=== PATIENT | female | born 1935 | race Caucasian/White ===

== ENCOUNTER → 2016-07-03 | Outpatient (CLI) | payer OTHER ==
[~2016-07-03] MED LIST: AMLO-110 PO; ASCO500T16 PO; ATOR-26 PO; CALC1CHW PO; CALCTAB7 PO; CIPR250T3 PO; CLC100 PO; CLON0.2T PO; CLOP1TAB15 PO; DENO60SO SQ; LISI-725 PO; LPR100 PO; LVNIS60 SQ; METO50TA16 PO; METR0.7527 TD; METR1GEL3 TD; MULT-506 PO; PLV75 PO; VNTHFA/IN INH; WARF5TAB90 PO
--- NOTE | 2016-07-04 08:03 | MAMMOGRAPHY REPORT ---
BILATERAL DIGITAL SCREENING MAMMOGRAM WITH CAD: 07/03/2016 CLINICAL HISTORY: Routine screening examination. TECHNIQUE: Bilateral CC and MLO views were obtained. Current study was also evaluated with a Comput er Aided Detection (CAD) system. COMPARISON: Comparison is made to exams dated: 06/30/2015 mammogram, 05/28/2014 mammogram, 05/27/2013 m ammogram, 05/28/2012 ultrasound, 05/24/2011 mammogram, and 05/17/2010 mammogram - [facility]. BREAST COMPOSITION: There are scattered areas of fibroglandular density in both breasts. FINDINGS: There are moderate vascular calcifications in both breasts. Benign rim calcifications bi laterally. Stable focal asymmetry in the upper outer middle to posterior left breast, and stable 6 mm reniform mass in the upper outer posterior right breast, most likely representing an intramammary lymph node. No new suspicious mass, architectural distortion or cluster of microcalcifications is s een. IMPRESSION: ACR BI-RADS CATEGORY 2: BENIGN There is no mammographic evidence of malignancy. A 1 year screening mammogram is recommended. The p atient will receive written notification of the results. Approximately 10% of breast cancers are not detected with mammography. A negative mammographic repor t should not delay biopsy if a clinically suggestive mass is present. Radha Cantu M.D. ay/:07/03/2016 16:12:36 [employer]: Amna ARIAS)(Josh), [facility] letter sent: Normal 1/2 BI-RADS Code: ACR BI-RADS Category 2: Benign
== END | disposition home or self-care (01) ==
LOC: C.MAMM 07:23
PROVIDERS: ATTEND Internal Medicine
DX: Z12.31 Encounter for screening mammogram for malignant neoplasm of breast (principal)

== ENCOUNTER 2016-10-09 19:38 | Inpatient (IN) | payer OTHER ==
[~2016-10-09] VITALS: Ht 157.5 cm; Wt 57.8 kg
[~2016-10-09 19:38] MED LIST changes: -AMLO-110 PO; -ASCO500T16 PO; -ATOR-26 PO; -CALC1CHW PO; -CALCTAB7 PO; -CIPR250T3 PO; -CLC100 PO; -CLOP1TAB15 PO; -DENO60SO SQ; -LPR100 PO; -LVNIS60 SQ; -METR0.7527 TD; -MULT-506 PO; -PLV75 PO; -VNTHFA/IN INH; -WARF5TAB90 PO
[2016-10-09] MEDS ORDERED: SODIUM CHLORIDE 0.9% 1000ML 1,000 ML IV SCH (19:49)
[2016-10-09 19:59] LABS: HEMATOCRIT 39.8 % (37-47); MEAN CELL VOLUME 98.8 fL (80-100); MEAN CORPUSCULAR HEMOGLOBIN 34.2 pg (25-34); MEAN CORPUSCULAR HGB CONC 34.7 g/dl (32-36); MEAN PLATELET VOLUME 10.6 fL (7.4-10.4); PLATELET COUNT 346 K/uL (130-400); RED BLOOD COUNT 4.03 M/uL (4.2-5.4); WHITE BLOOD COUNT 11.97 K/uL (4.8-10.8)
--- NOTE | 2016-10-09 20:10 | DIAGNOSTIC IMAGING REPORT ---
CHEST ONE VIEW PORTABLE CLINICAL HISTORY: Stroke. Slurred speech. COMPARISON STUDY: Chest radiograph November 18, 2009. FINDINGS: A proximal right humeral internal fixation is incidentally noted. There is no pneumothorax or pleural effusion. Diffuse interstitial thickening has developed since exam of November 18, 2009. There is no consolidation. There is minimal left basilar opacity. Mild cardiomegaly is noted. IMPRESSION: 1. Interval development of diffuse interstitial thickening since exam of November 18, 2009. This favors interstitial lung disease although pulmonary edema could appear similar. 2. Mild cardiomegaly. Electronically signed by: Pedro Butcher M.D. 10/09/2016 8:09 PM Dictated Date/Time: 10/09/2016 8:07 PM
[2016-10-09 20:12] LABS: INR 1.1 (0.9-1.1); PARTIAL THROMBOPLASTIN RATIO 1.1
[2016-10-09 20:15] LABS: ALT/SGPT 25 U/L (12-78); AST/SGOT 23 U/L (15-37); BLOOD UREA NITROGEN 15 mg/dl (7-18); BUN/CREATININE RATIO 15.9 (10-20); CALCIUM 9.4 mg/dl (8.5-10.1); CARBON DIOXIDE 23 mmol/L (21-32); CHLORIDE 104 mmol/L (98-107); CREATININE 0.95 mg/dl (0.60-1.20); GLUCOSE 123 mg/dl (70-99); POTASSIUM 3.6 mmol/L (3.5-5.1); SODIUM 138 mmol/L (136-145)
[2016-10-09 20:20] LABS: ALKALINE PHOSPHATASE 79 U/L (45-117); CKMB/CK RATIO 2.3 (0-3.0)
--- NOTE | 2016-10-09 20:23 | DIAGNOSTIC IMAGING REPORT ---
CT OF THE HEAD WITHOUT CONTRAST CLINICAL HISTORY: Stroke. Slurred speech. COMPARISON STUDY: No previous studies for comparison. CT DOSE: 537.48 mGy.cm TECHNIQUE: Helical axial images of the head were obtained without IV contrast. Automated exposure control was utilized for the study. FINDINGS: No acute intracranial hemorrhage, midline shift or mass effect is present. Mild ventricular dilatation is likely due to atrophy as this is proportional to sulcal enlargement. Moderate white matter hypodensities suggest small vessel disease. There are no findings to suggest acute dural sinus thrombosis or acute territorial infarct. There is no calvarial fracture. There are postsurgical findings within visualized portions of the sinuses. IMPRESSION: No acute intracranial findings. Electronically signed by: Pedro Butcher M.D. 10/09/2016 8:21 PM Dictated Date/Time: 10/09/2016 8:19 PM
--- NOTE | 2016-10-09 20:31 | EMERGENCY ROOM VISIT NOTE ---
History Report prepared by [employer]: Todd Rivas Under the Supervision of: Dr. Salvador Zarate D.O. First contact with patient: 19:43 Stated Complaint: TIRED, SLURRED SPEACH History of Present Illness The patient is a 81 year old female who presents to the Emergency Room by EMS with complaints of persistent neurologic symptoms beginning yesterday. 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 They state that the patient said that she felt "like she was in slow motion" initially. They state that the patient developed difficulty speaking and fatigue today. Nursing staff states that the patient may have some facial droop. The patient denies any rashes, and states that she has not been outside much recently. She has no history of cancer. She denies any problems with taste. Source of History: patient, EMS, nursing staff Onset: Yesterday Quality: other (neurologic symptoms) Timing: other (persistent) Associated Symptoms: + fatigue, No rash Note: The patient's symptoms include difficulty speaking. Review of Systems See HPI for pertinent positives & negatives. A total of 10 systems reviewed and were otherwise negative. 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 Surgical Problems: (1) H/O exploratory laparotomy (2) H/O laminectomy (3) H/O shoulder surgery (4) Hx of cardiac cath (5) Hx of tonsillectomy (6) S/P ELEN-BSO Family History Cancer Diabetes mellitus FH: heart disease Social History Smoking Status: Never Smoker Alcohol Use: occasionally Drug Use: none Marital Status: Housing Status: lives with family Occupation Status: retired Current/Historical Medications Scheduled Amlodipine (Norvasc), 5 MG PO DAILY Ascorbic Acid (Ascorbic Acid), 500 MG PO DAILY Calcium Carbonate-Vitamin D (Caltrate 600+D), 1 TAB PO DAILY Clonidine Hcl (Catapres), 0.2 MG PO BID Denosumab (Prolia), 1 ML SQ [id number] Lisinopril (Zestril), 20 MG PO BID Metoprolol Tartrate (Lopressor) (Lopressor), 75 MG PO BID Metronidazole Hcl (Metrogel), 1 APPLN TD UD Multivitamin (Multivitamin), 1 TAB PO DAILY Scheduled PRN Albuterol Hfa (Ventolin Hfa), 2 PUFFS INH Q6H PRN for SOB/Wheezing Allergies Coded Allergies: Pneumococcal Vaccine (Verified Allergy, Mild, DIZZINESS AND FELT LOUSY, ) Sulfa Antibiotics (Verified Allergy, Unknown, ., 08/26/15) Physical Exam Vital Signs Date Time Temp Pulse Resp B/P (MAP) Pulse Ox O2 Delivery O2 Flow Rate FiO2 10/09/16 20:33 75 10/09/16 20:31 81 17 144/96 95 Room Air 10/09/16 19:40 37.0 91 18 183/119 99 Room Air 10/09/16 19:40 Room Air Physical Exam GENERAL: Patient is awake, alert, and in no acute distress. Patient is resting comfortably and showing no signs of anxiety EYES: The conjunctivae are clear. The pupils are round and reactive. EARS, NOSE, MOUTH AND THROAT: The nose is without any evidence of any deformity. Mucous membranes are moist tongue is midline NECK: The neck is nontender and supple. RESPIRATORY: Normal respiratory effort is noted there is no evidence of wheezing rhonchi or rales CARDIOVASCULAR: Regular rate and rhythm noted there no murmurs rubs or gallops normal S1 normal S2 GASTROINTESTINAL: The abdomen is soft. Bowel sounds are present in all quadrants. Abdomen is nontender PELVIS: The Pelvis is stable. No tenderness to palpation is noted. BACK: No midline tenderness or or step-off noted range of motion in flexion extension as well as rotation no signs of muscle spasm noted MUSCULOSKELETAL/EXTREMITIES: There is no evidence of gross deformity full range of motion is noted in the hips and shoulders SKIN: There is no obvious evidence of any rash. There are no petechiae, pallor or cyanosis noted. NEUROLOGIC: Awake, alert and oriented x3. Slight facial droop on the right with forehead sparing. Speech was slurred mildly. Strength symmetric. No drift in the upper extremities. Medical Decision & Procedures ER Provider Diagnostic Interpretation: Radiology results as stated below per my review and radiologist interpretation: CT OF THE HEAD WITHOUT CONTRAST FINDINGS: No acute intracranial hemorrhage, midline shift or mass effect is present. Mild ventricular dilatation is likely due to atrophy as this is proportional to sulcal enlargement. Moderate white matter hypodensities suggest small vessel disease. There are no findings to suggest acute dural sinus thrombosis or acute territorial infarct. There is no calvarial fracture. There are postsurgical findings within visualized portions of the sinuses. IMPRESSION: No acute intracranial findings. Electronically signed by: Pedro Butcher M.D. CHEST ONE VIEW PORTABLE FINDINGS: A proximal right humeral internal fixation is incidentally noted. There is no pneumothorax or pleural effusion. Diffuse interstitial thickening has developed since exam of November 18, 2009. There is no consolidation. There is minimal left basilar opacity. Mild cardiomegaly is noted. IMPRESSION: 1. Interval development of diffuse interstitial thickening since exam of November 18, 2009. This favors interstitial lung disease although pulmonary edema could appear similar. 2. Mild cardiomegaly. Electronically signed by: Pedro Butcher M.D. Laboratory Results 10/09/16 19:36 Red Blood Count 4.03, Mean Corpuscular Volume 98.8, Mean Corpuscular Hemoglobin 34.2, Mean Corpuscular Hemoglobin Concent 34.7, Mean Platelet Volume 10.6, Neutrophils (%) (Auto) 43.5, Lymphocytes (%) (Auto) 45.8, Monocytes (%) (Auto) 9.4, Eosinophils (%) (Auto) 0.8, Basophils (%) (Auto) 0.3, Neutrophils # (Auto) 5.21, Lymphocytes # (Auto) 5.48, Monocytes # (Auto) 1.13, Eosinophils # (Auto) 0.09, Basophils # (Auto) 0.04 10/09/16 19:36 Test 10/09/16 19:36 10/09/16 19:49 White Blood Count 11.97 K/uL (4.8-10.8) Red Blood Count 4.03 M/uL (4.2-5.4) Hemoglobin 13.8 g/dL (12.0-16.0) Hematocrit 39.8 % (37-47) Mean Corpuscular Volume 98.8 fL (80-100) Mean Corpuscular Hemoglobin 34.2 pg (25-34) Mean Corpuscular Hemoglobin Concent 34.7 g/dl (32-36) Platelet Count 346 K/uL (130-400) Mean Platelet Volume 10.6 fL (7.4-10.4) Neutrophils (%) (Auto) 43.5 % Lymphocytes (%) (Auto) 45.8 % Monocytes (%) (Auto) 9.4 % Eosinophils (%) (Auto) 0.8 % Basophils (%) (Auto) 0.3 % Neutrophils # (Auto) 5.21 K/uL (1.4-6.5) Lymphocytes # (Auto) 5.48 K/uL (1.2-3.4) Monocytes # (Auto) 1.13 K/uL (0.11-0.59) Eosinophils # (Auto) 0.09 K/uL (0-0.5) Basophils # (Auto) 0.04 K/uL (0-0.2) RDW Standard Deviation 46.4 fL (36.4-46.3) RDW Coefficient of Variation 12.8 % (11.5-14.5) Immature Granulocyte % (Auto) 0.2 % Immature Granulocyte # (Auto) 0.02 K/uL (0.00-0.02) Red Blood Cell Morphology Unremarkable Prothrombin Time 12.0 SECONDS (9.0-12.0) Prothromb Time International Ratio 1.1 (0.9-1.1) Activated Partial Thromboplast Time 28.4 SECONDS (21.0-31.0) Partial Thromboplastin Ratio 1.1 Anion Gap 11.0 mmol/L (3-11) Est Creatinine Clear Calc Drug Dose 36.1 ml/min Estimated GFR () 64.6 Estimated GFR (Non- 55.8 BUN/Creatinine Ratio 15.9 (10-20) Calcium Level 9.4 mg/dl (8.5-10.1) Total Bilirubin 0.5 mg/dl (0.2-1) Direct Bilirubin 0.2 mg/dl (0-0.2) Aspartate Amino Transf (AST/SGOT) 23 U/L (15-37) Alanine Aminotransferase (ALT/SGPT) 25 U/L (12-78) Alkaline Phosphatase 79 U/L (45-117) Total Creatine Kinase 107 U/L (26-192) Creatine Kinase MB 2.5 ng/ml (0.5-3.6) Creatine Kinase MB Ratio 2.3 (0-3.0) Troponin I < 0.015 ng/ml (0-0.045) Total Protein 9.2 gm/dl (6.4-8.2) Albumin 4.1 gm/dl (3.4-5.0) Lyme Disease IgG Antibody NEG (NEG) Lyme Disease IgM Antibody NEG (NEG) Laboratory results per my review. Medications Administered Medications (Trade) Dose Ordered Sig/Princess Route Start Time Stop Time Status Last Admin Dose Admin Sodium Chloride 1,000 ml @ 50 mls/hr Q20H IV 10/09/16 19:49 11/08/16 19:48 10/09/16 20:37 50 MLS/HR ECG Indication: other (neurologic symptoms) Rate (beats per minute): 87 Rhythm: normal sinus Findings: no ectopy, other (LVH. Poor R-wave progression) Comparison ECG Date: August 18, 2015 Change: Changes are new. ED Course 1943: The patient was evaluated in room B4B. A complete history and physical examination were performed. 1948: Ordered NSS 1,000 ml @ 50 mls/hr IV. 2100: Upon reevaluation, the patient is resting comfortably. I discussed results and treatment plan with her. She verbalizes agreement and understanding. I spoke with Dr. Donovan of the [facility]. The patient will be evaluated for further management and care. Medical Decision Differential diagnosis: Etiologies such as metabolic, infection, hypo/hyperglycemia, electrolyte abnormalities, cardiac sources, intracerebral event, toxicologic, neurologic, as well as others were entertained. Blood pressure screening: Patient was found to have an elevated blood pressure. Referral was deferred to the hospitalist service. Medication Reconciliation: I attest that I have personally reviewed the patient' s current medications list. The patient is an 81-year-old female who presented to emergency department for an evaluation of possible stroke. The patient had slurred speech and right facial droop. Her overall condition might be consistent with Ortiz's palsy but she has some forehead sparing and also has difficulty ambulating and is very unsteady with her gait. For this reason I think this could be consistent with a CVA especially given the patient's age and hypertension history. I discussed the patient's laboratory and radiographic studies with her. She was treated with a small amount of IV fluids in the emergency department. On subsequent reevaluation she was unchanged. The patient's symptoms started last evening I do not feel that she would be a candidate for TPA. I discussed her case with the on-call [facility] hospitalist. They've agreed to evaluate the patient in emergency apartment for further management and disposition. Consults Time Called: [phone] Consulting Physician: Dr. Zion Ayoub Returned Call: [phone] I discussed the patient's case with Dr. Donovan. The patient will be evaluated for further management. Impression Primary Impression: Weakness Additional Impressions: Facial droop Hypertension Scribe Attestation The scribe's documentation has been prepared under my direction and personally reviewed by me in its entirety. I confirm that the note above accurately reflects all work, treatment, procedures, and medical decision making performed by me. Departure Information Dispostion Being Evaluated By Hospitalist Referrals José Vergara D.OCorina (PCP) Stroke History Time Last Known Well Yesterday Stroke t-PA Criteria Reviewed Does NOT meet criteria for t-PA Reason t-PA Not Given Treatment not indicated (patient is outside of the window for TPA) Problem Qualifiers Additional Impressions:
[2016-10-09 20:49] LABS: LYME DISEASE AB IGG NEG (NEG); LYME DISEASE AB IGM NEG (NEG)
[2016-10-09 20:53] LABS: BASO % 0.3 %; BASO ABS # 0.04 K/uL (0-0.2); COMPLETE YES; EOS % 0.8 %; IG% 0.2 %; LYMPH % 45.8 %; LYMPH ABS # 5.48 K/uL (1.2-3.4); MONO % 9.4 %; NEUT % 43.5 %
[2016-10-09] MEDS ORDERED: AMLO-110 PO (20:59)
[2016-10-09] MEDS ORDERED: MULT-506 PO (21:00)
[2016-10-09] MEDS ORDERED: ASCO500T16 PO (21:02)
[2016-10-09] MEDS ORDERED: CALC1CHW PO (21:03)
[2016-10-09] MEDS ORDERED: VNTHFA/IN INH (21:05)
[2016-10-09] MEDS ORDERED: DENO60SO SQ (21:07)
[2016-10-09] MEDS ORDERED: ACETAMINOPHEN 325 MG TAB PO PRN (21:45)
[2016-10-09] MEDS ORDERED: PHARMACIST DISCHARGE MED REC CONSULT PRN (21:45)
[2016-10-09] MEDS ORDERED: ONDANSETRON INJ 2 MG/ML 2 ML VIAL IV PRN (21:45)
--- NOTE | 2016-10-09 22:17 | History and Physical ---
History & Physical Date & Time of Service: Oct 09, 2016 at 21:47 Chief Complaint: Tired, Slurred Speach Primary Care Physician: José Vergara D.O. History of Present Illness Source: patient, clinic records This is an 81 y/o female with PMH of hypertension, osteoporosis, and other problems listed below who presents to the ED with speech difficulty. Patient states last night she was stressed while paying bills but felt neurologically at baseline. Went to bed around 10 pm, had fitful night of sleep, then when she awoke around 6:30 am she noticed that she was having difficulty getting words out. Patient lives alone. 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 Patient states speech is now improved but not back to baseline. Patient denies vision change, COHEN, dizziness, swallowing difficulty, focal weakness or numbness , fever, chills, URI symptoms, cough, SOB, chest pain, N/V/D, urinary changes. Pt reports she did not tolerate aspirin in the past due to epistaxis. No recent abnormal bleeding. Denies history of TIA, CVA, atrial fibrillation, HL, DM. In the ER patient's BP was initially 180s/110s, now improved to 130s systolic. Pt states her BP is generally controlled in clinic on her meds. Took AM meds today but not PM doses. Past Medical/Surgical History Medical Problems: (1) Anemia Nos Status: Chronic (2) Anterior epistaxis Status: Resolved (3) Chronic Sinusitis Nos Status: Chronic (4) Diverticulosis Colon (W/O Ment Of Hemorrhage) Status: Chronic (5) History of ischemic bowel disease Status: Chronic (6) Hypertension Nos Status: Chronic (7) Osteoporosis Status: Chronic (8) Rosacea Status: Chronic (9) Volvulus Of Intestine Status: Resolved Surgical Problems: (1) H/O exploratory laparotomy Permanent Comment: H/O Volvulus, adhesions and ischemic bowel/appendix Status: Chronic (2) H/O laminectomy Status: Chronic (3) H/O shoulder surgery Status: Chronic (4) Hx of cardiac cath Status: Chronic (5) Hx of tonsillectomy Status: Chronic (6) S/P ELEN-BSO Status: Chronic Family History Cancer Diabetes mellitus FH: heart disease Stroke BROTHER (in his 70s) Social History Smoking Status: Never Smoker Alcohol Use: 1 glass of wine per day Drug Use: none Housing status: lives alone Immunizations History of Influenza Vaccine: No History of Tetanus Vaccine?: Yes History of Pneumococcal: Yes History of Hepatitis B Vaccine: Unknown Multi-Drug Resistant Organisms History of MDRO: No Allergies Coded Allergies: Pneumococcal Vaccine (Verified Allergy, Mild, DIZZINESS AND FELT LOUSY, ) Sulfa Antibiotics (Verified Allergy, Unknown, ., 08/26/15) Aspirin (Verified Adverse Reaction, Unknown, epistaxis, 10/09/16) Home Medications Scheduled Amlodipine (Norvasc), 5 MG PO DAILY Ascorbic Acid (Ascorbic Acid), 500 MG PO DAILY Calcium Carbonate-Vitamin D (Caltrate 600+D), 1 TAB PO DAILY Clonidine Hcl (Catapres), 0.2 MG PO BID Denosumab (Prolia), 1 ML SQ [id number] Lisinopril (Zestril), 20 MG PO BID Metoprolol Tartrate (Lopressor) (Lopressor), 75 MG PO BID Metronidazole Hcl (Metrogel), 1 APPLN TD BID Multivitamin (Multivitamin), 1 TAB PO DAILY Review of Systems Ten systems reviewed and negative except as noted in HPI. Physical Exam Vital Signs Date Time Temp Pulse Resp B/P (MAP) Pulse Ox O2 Delivery O2 Flow Rate FiO2 10/09/16 20:33 75 10/09/16 20:31 81 17 144/96 95 Room Air 10/09/16 19:40 37.0 91 18 183/119 99 Room Air 10/09/16 19:40 Room Air General Appearance: WD/WN, no apparent distress, + pertinent finding (alert 81 year old female) Head: normocephalic, atraumatic Eyes: normal inspection, PERRL, EOMI, sclerae normal ENT: hearing grossly normal, pharynx normal Neck: supple, no carotid bruits, trachea midline Respiratory/Chest: lungs clear, normal breath sounds, no respiratory distress, no accessory muscle use Cardiovascular: regular rate, rhythm, no murmur Abdomen/GI: normal bowel sounds, non tender, soft Extremities/Musculoskelatal: no calf tenderness, no pedal edema Neurologic/Psych: no motor/sensory deficits, alert, normal mood/affect, oriented x 3, + pertinent finding (mild dysarthria. right facial droop. finger to nose intact. no pronator drift.) Skin: normal color, warm/dry Diagnostics Laboratory Results Results Past 24 Hours Test 10/09/16 19:36 10/09/16 19:49 Range/Units White Blood Count 11.97 4.8-10.8 K/uL Red Blood Count 4.03 4.2-5.4 M/uL Hemoglobin 13.8 12.0-16.0 g/dL Hematocrit 39.8 37-47 % Mean Corpuscular Volume 98.8 80-100 fL Mean Corpuscular Hemoglobin 34.2 25-34 pg Mean Corpuscular Hemoglobin Concent 34.7 32-36 g/dl Platelet Count 346 130-400 K/uL Mean Platelet Volume 10.6 7.4-10.4 fL Neutrophils (%) (Auto) 43.5 % Lymphocytes (%) (Auto) 45.8 % Monocytes (%) (Auto) 9.4 % Eosinophils (%) (Auto) 0.8 % Basophils (%) (Auto) 0.3 % Neutrophils # (Auto) 5.21 1.4-6.5 K/uL Lymphocytes # (Auto) 5.48 1.2-3.4 K/uL Monocytes # (Auto) 1.13 0.11-0.59 K/uL Eosinophils # (Auto) 0.09 0-0.5 K/uL Basophils # (Auto) 0.04 0-0.2 K/uL RDW Standard Deviation 46.4 36.4-46.3 fL RDW Coefficient of Variation 12.8 11.5-14.5 % Immature Granulocyte % (Auto) 0.2 % Immature Granulocyte # (Auto) 0.02 0.00-0.02 K/uL Red Blood Cell Morphology Unremarkable Prothrombin Time 12.0 9.0-12.0 SECONDS Prothromb Time International Ratio 1.1 0.9-1.1 Activated Partial Thromboplast Time 28.4 21.0-31.0 SECONDS Partial Thromboplastin Ratio 1.1 Sodium Level 138 136-145 mmol/L Potassium Level 3.6 3.5-5.1 mmol/L Chloride Level 104 98-107 mmol/L Carbon Dioxide Level 23 21-32 mmol/L Anion Gap 11.0 3-11 mmol/L Blood Urea Nitrogen 15 7-18 mg/dl Creatinine 0.95 0.60-1.20 mg/dl Est Creatinine Clear Calc Drug Dose 36.1 ml/min Estimated GFR () 64.6 Estimated GFR (Non- 55.8 BUN/Creatinine Ratio 15.9 10-20 Random Glucose 123 70-99 mg/dl Calcium Level 9.4 8.5-10.1 mg/dl Total Bilirubin 0.5 0.2-1 mg/dl Direct Bilirubin 0.2 0-0.2 mg/dl Aspartate Amino Transf (AST/SGOT) 23 15-37 U/L Alanine Aminotransferase (ALT/SGPT) 25 12-78 U/L Alkaline Phosphatase 79 45-117 U/L Total Creatine Kinase 107 26-192 U/L Creatine Kinase MB 2.5 0.5-3.6 ng/ml Creatine Kinase MB Ratio 2.3 0-3.0 Troponin I < 0.015 0-0.045 ng/ml Total Protein 9.2 6.4-8.2 gm/dl Albumin 4.1 3.4-5.0 gm/dl Lyme Disease IgG Antibody NEG NEG Lyme Disease IgM Antibody NEG NEG Diagnostic Radiology CT OF THE HEAD WITHOUT CONTRAST CLINICAL HISTORY: Stroke. Slurred speech. COMPARISON STUDY: No previous studies for comparison. CT DOSE: 537.48 mGy.cm TECHNIQUE: Helical axial images of the head were obtained without IV contrast. Automated exposure control was utilized for the study. FINDINGS: No acute intracranial hemorrhage, midline shift or mass effect is present. Mild ventricular dilatation is likely due to atrophy as this is proportional to sulcal enlargement. Moderate white matter hypodensities suggest small vessel disease. There are no findings to suggest acute dural sinus thrombosis or acute territorial infarct. There is no calvarial fracture. There are postsurgical findings within visualized portions of the sinuses. IMPRESSION: No acute intracranial findings. CHEST ONE VIEW PORTABLE CLINICAL HISTORY: Stroke. Slurred speech. COMPARISON STUDY: Chest radiograph November 18, 2009. FINDINGS: A proximal right humeral internal fixation is incidentally noted. There is no pneumothorax or pleural effusion. Diffuse interstitial thickening has developed since exam of November 18, 2009. There is no consolidation. There is minimal left basilar opacity. Mild cardiomegaly is noted. IMPRESSION: 1. Interval development of diffuse interstitial thickening since exam of November 18, 2009. This favors interstitial lung disease although pulmonary edema could appear similar. 2. Mild cardiomegaly. EKG NSR, 87 bpm, nonspecific T wave inversion in III, no ectopy Impression Assessment and Plan POSSIBLE TIA, RULE OUT CVA Presents with dysarthria, right facial droop Risk factors- hypertension, age CT head- small vessel disease, no acute abnormality Check MRI brain, MRA head and neck, echo with bubble study, monitor in telemetry to r/o arrhythmia Aspirin intolerance noted (epistaxis) Add atorvastatin 40 mg HS for now and check lipid panel in am Consult neurology PT, OT, speech evals HYPERTENSION BP initially elevated to 180s/110s in ER- improved to 130s systolic Takes amlodipine 5 mg daily, clonidine 0.2 mg BID, lisinopril 20 mg BID, metoprolol tartrate 75 mg BID Will hold her PM meds tonight to allow permissive HTN then resume meds in am DVT PROPHYLAXIS Lovenox SQ CODE STATUS Full code per my discussion with the patient. Does not want prolonged life support. DISPOSITION Admit to telemetry Follows with Dr. Vergara for primary care Lives alone; nutrition services aide for discharge planning Patient seen in collaboration with Dr. Donovan. Please see his addendum. Pt will be followed by Dr. Smith in am. 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 Head CT negative, but she continued to have R sided facial droop. VITALS: Last Vital Signs Documentation Date Time Temp Pulse Resp B/P (MAP) Pulse Ox O2 Delivery O2 Flow Rate FiO2 10/10/16 01:10 37.2 64 18 131/78 (95) 96 10/10/16 00:15 Room Air GEN: no acute distress HEENT: noted R sided facial droop, mild slurring of speech CVS: +S1, S2, RRR LUNGS: CTA b/l, no wheezing ABD: soft, NT/ND EXT: no edema NEURO: R facial droop - otherwise, no motor or sensory deficits Stroke-Like Symptoms patient presents with R facial droop/slurring speech head CT negative will obtain Brain MRI/MRA of head/neck echo monitor in tele cannot tolerate aspirin consult neurology start Lipitor VTE Prophylaxis VTE Risk Assessment Done? Y/N: Yes Risk Level: Moderate
[2016-10-09 22:26] VITALS: BP 162/101; PULSE 77; TEMP 37; O2SAT 96; Ht 157.5 cm; Wt 57.8 kg
[2016-10-09] MEDS: SODIUM CHLORIDE 0.9% 1000ML 1,000 ML IV SCH (22:31)
[2016-10-09] MEDS: ENOXAPARIN 40 MG/0.4 ML SYR SC SCH (23:38)
[2016-10-10] VITALS (14 sets, daily range): BP systolic 112–184; BP diastolic 59–101; PULSE 57–83; TEMP 36.4–37.5; O2SAT 94–98
[2016-10-10 00:20] LABS: MANUAL MICROSCOPIC REQUIRED? NO; REVIEW REQ? NO; URINE APPEARANCE CLEAR (CLEAR); URINE BILIRUBIN NEG (NEG); URINE COLOR YELLOW; URINE NITRITE POS (NEG); UROBILINOGEN NEG (NEG); ZZUR CULT IF INDIC CLEAN CATCH YES
[2016-10-10] MEDS ORDERED: GADAVIST IV PRN (04:15)
[2016-10-10 06:27] LABS: BASO % 0.2 %; BASO ABS # 0.02 K/uL (0-0.2); COMPLETE YES; EOS % 0.7 %; HEMATOCRIT 35.1 % (37-47); IG% 0.1 %; LYMPH % 26.2 %; LYMPH ABS # 2.25 K/uL (1.2-3.4); MEAN CELL VOLUME 98.9 fL (80-100); MEAN CORPUSCULAR HGB CONC 33.3 g/dl (32-36); MEAN PLATELET VOLUME 10.2 fL (7.4-10.4); MONO % 14.1 %; NEUT % 58.7 %; PLATELET COUNT 283 K/uL (130-400); RED BLOOD COUNT 3.55 M/uL (4.2-5.4)
[2016-10-10 06:51] LABS: ESTIMATED AVERAGE GLUCOSE 108 mg/dl; HA1C FLAG Normal (Normal)
[2016-10-10 07:05] LABS: BUN/CREATININE RATIO 17.1 (10-20); CALCIUM 7.9 mg/dl (8.5-10.1); CREATININE 0.64 mg/dl (0.60-1.20); POTASSIUM 3.2 mmol/L (3.5-5.1)
--- NOTE | 2016-10-10 07:13 | DIAGNOSTIC IMAGING REPORT ---
Brain MRI WITHOUT CONTRAST HISTORY: Mental status change Stroke TECHNIQUE: Multiplanar multisequence MRI of the brain was performed without the use of contrast. COMPARISON STUDY: None. FINDINGS: Multifocal punctate foci of increased signal suggesting an acute ischemic process in the left middle cerebral arterial distribution. These small foci appear to represent a watershed type infarct. There are findings of age-related atrophy. Chronic small vessel changes present. There is mild compensatory prominence of the ventricular system. There is considerable mucosal thickening and/or near complete opacification of the maxillary sinuses. IMPRESSION: 1. 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 2. Atrophy with components of chronic small vessel change of aging. 3. Note is made that these images are submitted to the radiologist in a delayed fashion Electronically signed by: Santi Aguilar M.D. 10/10/2016 7:12 AM Dictated Date/Time: 10/10/2016 7:05 AM
[2016-10-10 07:14] LABS: CHOLESTEROL/HDL RATIO 3.6
--- NOTE | 2016-10-10 07:25 | DIAGNOSTIC IMAGING REPORT ---
Brain MRA HISTORY: Stroke - Attention to [place] TECHNIQUE: 3-D [id number] MRA of the brain was performed without contrast. COMPARISON STUDY: None. FINDINGS: Visualized intracranial internal carotid arteries, distal vertebral arteries, and basilar artery are widely patent. There is no significant stenosis, occlusion, or aneurysm seen within the bilateral ACAs, MCAs, or right [employer]. Mild focal narrowing within the proximal left [employer]. IMPRESSION: Mild focal narrowing within the proximal left [employer]. Otherwise, significant stenosis, occlusion, or aneurysm within the remaining [place]. Electronically signed by: Edgar Barroso M.D. 10/10/2016 7:24 AM Dictated Date/Time: 10/10/2016 7:17 AM
--- NOTE | 2016-10-10 07:25 | DIAGNOSTIC IMAGING REPORT ---
NECK MRA HISTORY: Stroke Stroke TECHNIQUE: [id number] and gadolinium-enhanced MRA of the neck was performed both before and after the intravenous administration of contrast. All measurements were calculated based on NASCET criteria. COMPARISON STUDY: None. FINDINGS: The aortic arch and proximal great vessels are widely patent. There is no significant stenosis, occlusion, or dissection identified within the bilateral common carotid, internal carotid, or vertebral arteries. Mild scattered atelectatic change. IMPRESSION: No significant stenosis, occlusion, or dissection identified within the carotid or vertebral arteries. Mild scattered atherosclerotic change Electronically signed by: Santi Aguilar M.D. 10/10/2016 7:23 AM Dictated Date/Time: 10/10/2016 7:20 AM
--- NOTE | 2016-10-10 09:11 | ECHOCARDIOGRAM REPORT ---
*NOTICE TO RECEIVING [employer] This information is strictly Confidential and protected under [place] law. [place] law prohibits you from making any further disclosure of this information unless further disclosure is expressly permitted by the written consent of the person to whom it pertains or is authorized by law. A general authorization for the release of medical or other information is not sufficient for this purpose. Hospital accepts no responsibility if the information is made available to any other person, INCLUDING THE PATIENT. Interpretation Summary * Name: PIEDAD SALAZAR Study Date: 10/10/2016 06:26 AM BP: 162/95 mmHg * Patient Location: C.2T\S\E221\S\1 HR: 71 * : 1935 (M/d/yyy) Gender: Female Height: 62 in * Age: 81 yrs Ethnicity: CA Weight: 131 lb * Ordering Physician: Lisseth Sanchez * Referring Physician: Self, Referred * Performed By: Shyann Reynoso RCS * * Reason For Study: TIA * BSA: 1.6 m2 * -- Conclusions -- * The left ventricle is normal in size. * There is moderate concentric left ventricular hypertrophy. * The left ventricular wall motion is normal. * Ejection Fraction = 55-60%. * Aortic valve sclerosis moderate, without significant aortic valvular stenosis. * Trace aortic regurgitation. * There is moderate to severe mitral annular calcification. * There is trace mitral regurgitation. * There is trace tricuspid regurgitation. * Right ventricular systolic pressure is elevated at 30-40mmHg. * The interatrial septum is intact with no evidence for an atrial septal defect. * Injection of contrast documented no interatrial shunt. Procedure Details * A complete two-dimensional transthoracic echocardiogram was performed (2D, M-mode, Doppler and color flow Doppler). * A saline contrast injection was performed to assess for cardiac shunting. * The injection was performed through an intravenous line in the left arm. * The attending nurse who injected the saline contrast was CHRISTOPHER DAVALOS, RN. * A total of 10 cc of agitated saline was given. Left Ventricle * The left ventricle is normal in size. * There is moderate concentric left ventricular hypertrophy. * Ejection Fraction = 55-60%. * Left ventricular systolic function is normal. * The left ventricular wall motion is normal. Right Ventricle * The right ventricle is normal in size and function. Atria * The left atrium is moderately dilated. * The right atrium is mildly dilated. * The interatrial septum is intact with no evidence for an atrial septal defect. * Injection of contrast documented no interatrial shunt. Mitral Valve * There is moderate to severe mitral annular calcification. * There is no mitral valve stenosis. * There is trace mitral regurgitation. Tricuspid Valve * The tricuspid valve anatomy is normal. * There is no tricuspid stenosis. * There is trace tricuspid regurgitation. * Right ventricular systolic pressure is elevated at 30-40mmHg. Aortic Valve * The aortic valve is trileaflet. * Aortic valve sclerosis moderate, without significant aortic valvular stenosis. * Trace aortic regurgitation. Pulmonic Valve * The pulmonic valve is not well visualized. Great Vessels * The aortic root is normal size. Pericardium/Pleural * There is no pericardial effusion. Great Vessels * Normal inferior vena cava diameter and respiratory variation suggests normal central venous pressure. Left Ventricular Diastolic Function * Diastolic dysfunction, Grade II (pseudonormalization pattern). MMode 2D Measurements and Calculations IVSd 1.3 cm IVSs 1.4 cm LVIDd 3.9 cm LVIDs 2.5 cm LVPWd 1.2 cm LVPWs 1.6 cm IVS/LVPW 1.1 FS 36.2 % EDV(Teich) 67.4 ml ESV(Teich) 22.6 ml EF(Teich) 66.5 % EDV(cubed) 61.0 ml ESV(cubed) 15.9 ml EF(cubed) 74.0 % % IVS thick 6.6 % % LVPW thick 36.8 % LV mass(C)d 170.1 grams LV mass(C)dI 106.5 grams/m\S\2 LV mass(C)s 127.0 grams LV mass(C)sI 79.5 grams/m\S\2 SV(Teich) 44.8 ml SI(Teich) 28.0 ml/m\S\2 SV(cubed) 45.1 ml SI(cubed) 28.3 ml/m\S\2 Ao root diam 3.0 cm Ao root area 7.1 cm\S\2 ACS 1.6 cm LA dimension 4.3 cm LA/Ao 1.4 LVOT diam 2.0 cm LVOT area 3.1 cm\S\2 LVAd ap4 23.5 cm\S\2 LVLd ap4 5.8 cm EDV(MOD-sp4) 78.5 ml EDV(sp4-el) 81.0 ml LVAs ap4 15.6 cm\S\2 LVLs ap4 5.2 cm ESV(MOD-sp4) 38.8 ml ESV(sp4-el) 40.2 ml EF(MOD-sp4) 50.6 % EF(sp4-el) 50.4 % LVAd ap2 22.0 cm\S\2 LVLd ap2 5.8 cm EDV(MOD-sp2) 69.7 ml EDV(sp2-el) 71.2 ml LVAs ap2 12.1 cm\S\2 LVLs ap2 4.9 cm ESV(MOD-sp2) 23.9 ml ESV(sp2-el) 25.5 ml EF(MOD-sp2) 65.8 % EF(sp2-el) 64.1 % LVLd %diff -0.45 % EDV(MOD-bp) 74.1 ml LVLs %diff -6.17 % ESV(MOD-bp) 29.6 ml EF(MOD-bp) 60.1 % SV(MOD-sp4) 39.8 ml SI(MOD-sp4) 24.9 ml/m\S\2 SV(MOD-sp2) 45.9 ml SI(MOD-sp2) 28.7 ml/m\S\2 SV(MOD-bp) 44.6 ml SI(MOD-bp) 27.9 ml/m\S\2 SV(sp4-el) 40.8 ml SI(sp4-el) 25.5 ml/m\S\2 SV(sp2-el) 45.7 ml SI(sp2-el) 28.6 ml/m\S\2 Doppler Measurements and Calculations MV E max gilberto 174.2 cm/sec MV A max gilberto 112.7 cm/sec MV E/A 1.5 MV P1/2t max gilberto 176.6 cm/sec MV P1/2t 116.6 msec MVA(P1/2t) 1.9 cm\S\2 MV dec slope 443.4 cm/sec\S\2 MV dec time 0.27 sec Ao V2 max 174.6 cm/sec Ao max PG 12.3 mmHg Ao max PG (full) 6.5 mmHg BERTHA(V,A) 2.1 cm\S\2 BERTHA(V,D) 2.1 cm\S\2 AI max gilberto 485.4 cm/sec AI max PG 94.2 mmHg AI dec slope 234.9 cm/sec\S\2 AI P1/2t 605.2 msec LV V1 max PG 5.7 mmHg LV V1 max 119.7 cm/sec PA V2 max 92.4 cm/sec PA max PG 3.4 mmHg PI max gilberto 229.5 cm/sec PI max PG 21.1 mmHg PI dec slope 217.2 cm/sec\S\2 PI P1/2t 309.6 msec TR max gilberto 297.8 cm/sec
[2016-10-10] MEDS ORDERED: CALCIUM GLUCONATE 10% 1,000 MG in SODIUM CHLORIDE 0.9% 50ML 50 ML IV SCH (10:45)
[2016-10-10] MEDS: POTASSIUM CHLORIDE 20 MEQ TABCR PO SCH ×2 (12:00→17:04)
[2016-10-10] MEDS: SODIUM CHLORIDE 0.9% 1000ML 1,000 ML IV SCH ×2 (12:00→18:17)
[2016-10-10] MEDS ORDERED: LISINOPRIL 20 MG TAB PO SCH (12:30)
--- NOTE | 2016-10-10 12:43 | Progress Note ---
Medicine Progress Note Date & Time of Visit: Oct 10, 2016 at 12:22. 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 found to have acute L MCA stroke -pt feels improved today, able to speak and swallow without difficulty -PT/OT was in this morning and patient feels she did well with them -TTE was performed and was normal with neg bubble study this morning -MRI reveals watershed area -pt states h/o epistaxis req cautery (in the winter) twice and for this she avoids aspirin -no issues with nosebleeding since that time -she did not require a transfusion -asking to have her antihypertensives and for food Objective Last 8 Hrs Date Time Temp Pulse Resp B/P (MAP) Pulse Ox O2 Delivery O2 Flow Rate FiO2 10/10/16 11:49 37.3 71 16 160/90 (113) 97 Room Air 10/10/16 11:08 80 98 10/10/16 08:00 Room Air 10/10/16 07:45 37.5 60 16 158/90 (112) 94 Room Air Physical Exam: GEN: WNWD, in no acute distress, alert and appropriate HEENT: NC/AT, PERRL, EOMI, MMM, pharynx non-acute, normal sclerae CARDIO: reg rate, S1/2 heard without m/g/r LUNGS: CTA bilaterally, no crackles, rales or wheezes, good diaphragmatic excursion ABD: soft, non-tender, non-distended, no rebound or guarding, +BS EXTREMITY: RP and DP palpable 2+ bilat, no LE swelling or edema, extremities are warm and well-perfused NEURO: CN 2-12 intact except some noted facial paralysis on the right side, sensation intact throughout, coordination intact (reflexes) BR 2+ bilat, knee 2+ bilat MUSC: 5/5 strength throughout, no focal deficits, gait was not assessed. SKIN: warm and dry Laboratory Results: 10/10/16 06:15 Red Blood Count 3.55, Mean Corpuscular Volume 98.9, Mean Corpuscular Hemoglobin 33.0, Mean Corpuscular Hemoglobin Concent 33.3, Mean Platelet Volume 10.2, Neutrophils (%) (Auto) 58.7, Lymphocytes (%) (Auto) 26.2, Monocytes (%) (Auto) 14.1, Eosinophils (%) (Auto) 0.7, Basophils (%) (Auto) 0.2, Neutrophils # (Auto ) 5.05, Lymphocytes # (Auto) 2.25, Monocytes # (Auto) 1.21, Eosinophils # (Auto ) 0.06, Basophils # (Auto) 0.02 10/10/16 06:15 Test 10/09/16 19:36 10/10/16 00:05 10/10/16 06:15 Red Blood Cell Morphology Unremarkable Prothrombin Time 12.0 SECONDS (9.0-12.0) Prothromb Time International Ratio 1.1 (0.9-1.1) Activated Partial Thromboplast Time 28.4 SECONDS (21.0-31.0) Partial Thromboplastin Ratio 1.1 Estimated Average Glucose 108 mg/dl Hemoglobin A1c 5.4 % (4.5-5.6) Total Bilirubin 0.5 mg/dl (0.2-1) Direct Bilirubin 0.2 mg/dl (0-0.2) Aspartate Amino Transf (AST/SGOT) 23 U/L (15-37) Alanine Aminotransferase (ALT/SGPT) 25 U/L (12-78) Alkaline Phosphatase 79 U/L (45-117) Total Creatine Kinase 107 U/L (26-192) Creatine Kinase MB 2.5 ng/ml (0.5-3.6) Creatine Kinase MB Ratio 2.3 (0-3.0) Troponin I < 0.015 ng/ml (0-0.045) Total Protein 9.2 gm/dl (6.4-8.2) Albumin 4.1 gm/dl (3.4-5.0) Lyme Disease IgG Antibody NEG (NEG) Lyme Disease IgM Antibody NEG (NEG) Urine Color YELLOW Urine Appearance CLEAR (CLEAR) Urine pH 7.0 (4.5-7.5) Urine Specific [place] 1.010 (1.000-1.030) Urine Protein NEG (NEG) Urine Glucose (UA) NEG (NEG) Urine Ketones NEG (NEG) Urine Occult Blood NEG (NEG) Urine Nitrite POS (NEG) Urine Bilirubin NEG (NEG) Urine Urobilinogen NEG (NEG) Urine Leukocyte Esterase SMALL (NEG) Urine WBC (Auto) 10-30 /hpf (0-5) Urine RBC (Auto) 0-4 /hpf (0-4) Urine Hyaline Casts (Auto) 0 /lpf (0-5) Urine Epithelial Cells (Auto) 5-10 /lpf (0-5) Urine Bacteria (Auto) 1+ (NEG) White Blood Count 8.60 K/uL (4.8-10.8) Red Blood Count 3.55 M/uL (4.2-5.4) Hemoglobin 11.7 g/dL (12.0-16.0) Hematocrit 35.1 % (37-47) Mean Corpuscular Volume 98.9 fL (80-100) Mean Corpuscular Hemoglobin 33.0 pg (25-34) Mean Corpuscular Hemoglobin Concent 33.3 g/dl (32-36) Platelet Count 283 K/uL (130-400) Mean Platelet Volume 10.2 fL (7.4-10.4) Neutrophils (%) (Auto) 58.7 % Lymphocytes (%) (Auto) 26.2 % Monocytes (%) (Auto) 14.1 % Eosinophils (%) (Auto) 0.7 % Basophils (%) (Auto) 0.2 % Neutrophils # (Auto) 5.05 K/uL (1.4-6.5) Lymphocytes # (Auto) 2.25 K/uL (1.2-3.4) Monocytes # (Auto) 1.21 K/uL (0.11-0.59) Eosinophils # (Auto) 0.06 K/uL (0-0.5) Basophils # (Auto) 0.02 K/uL (0-0.2) RDW Standard Deviation 47.0 fL (36.4-46.3) RDW Coefficient of Variation 12.9 % (11.5-14.5) Immature Granulocyte % (Auto) 0.1 % Immature Granulocyte # (Auto) 0.01 K/uL (0.00-0.02) Anion Gap 13.0 mmol/L (3-11) Est Creatinine Clear Calc Drug Dose 53.6 ml/min Estimated GFR () 96.3 Estimated GFR (Non- 83.1 BUN/Creatinine Ratio 17.1 (10-20) Calcium Level 7.9 mg/dl (8.5-10.1) Triglycerides Level 85 mg/dl (0-150) Cholesterol Level 160 mg/dl (0-200) HDL Cholesterol 45 mg/dl LDL Cholesterol, Calculated 98 mg/dl VLDL Cholesterol, Calculated 17 mg/dl Cholesterol/HDL Ratio 3.6 Date/Time Source Procedure Growth Status 10/10/16 00:05 Urine , Clean Catch Urine Culture Pending Received Last 24 Hours Test 10/09/16 19:36 10/10/16 00:05 10/10/16 06:15 White Blood Count 11.97 K/uL 8.60 K/uL Red Blood Count 4.03 M/uL 3.55 M/uL Hemoglobin 13.8 g/dL 11.7 g/dL Hematocrit 39.8 % 35.1 % Mean Corpuscular Volume 98.8 fL 98.9 fL Mean Corpuscular Hemoglobin 34.2 pg 33.0 pg Mean Corpuscular Hemoglobin Concent 34.7 g/dl 33.3 g/dl Platelet Count 346 K/uL 283 K/uL Mean Platelet Volume 10.6 fL 10.2 fL Neutrophils (%) (Auto) 43.5 % 58.7 % Lymphocytes (%) (Auto) 45.8 % 26.2 % Monocytes (%) (Auto) 9.4 % 14.1 % Eosinophils (%) (Auto) 0.8 % 0.7 % Basophils (%) (Auto) 0.3 % 0.2 % Neutrophils # (Auto) 5.21 K/uL 5.05 K/uL Lymphocytes # (Auto) 5.48 K/uL 2.25 K/uL Monocytes # (Auto) 1.13 K/uL 1.21 K/uL Eosinophils # (Auto) 0.09 K/uL 0.06 K/uL Basophils # (Auto) 0.04 K/uL 0.02 K/uL RDW Standard Deviation 46.4 fL 47.0 fL RDW Coefficient of Variation 12.8 % 12.9 % Immature Granulocyte % (Auto) 0.2 % 0.1 % Immature Granulocyte # (Auto) 0.02 K/uL 0.01 K/uL Red Blood Cell Morphology Unremarkable Prothrombin Time 12.0 SECONDS Prothromb Time International Ratio 1.1 Activated Partial Thromboplast Time 28.4 SECONDS Partial Thromboplastin Ratio 1.1 Sodium Level 138 mmol/L 142 mmol/L Potassium Level 3.6 mmol/L 3.2 mmol/L Chloride Level 104 mmol/L 108 mmol/L Carbon Dioxide Level 23 mmol/L 21 mmol/L Anion Gap 11.0 mmol/L 13.0 mmol/L Blood Urea Nitrogen 15 mg/dl 11 mg/dl Creatinine 0.95 mg/dl 0.64 mg/dl Est Creatinine Clear Calc Drug Dose 36.1 ml/min 53.6 ml/min Estimated GFR () 64.6 96.3 Estimated GFR (Non- 55.8 83.1 BUN/Creatinine Ratio 15.9 17.1 Random Glucose 123 mg/dl 99 mg/dl Estimated Average Glucose 108 mg/dl Hemoglobin A1c 5.4 % Calcium Level 9.4 mg/dl 7.9 mg/dl Total Bilirubin 0.5 mg/dl Direct Bilirubin 0.2 mg/dl Aspartate Amino Transf (AST/SGOT) 23 U/L Alanine Aminotransferase (ALT/SGPT) 25 U/L Alkaline Phosphatase 79 U/L Total Creatine Kinase 107 U/L Creatine Kinase MB 2.5 ng/ml Creatine Kinase MB Ratio 2.3 Troponin I < 0.015 ng/ml Total Protein 9.2 gm/dl Albumin 4.1 gm/dl Lyme Disease IgG Antibody NEG Lyme Disease IgM Antibody NEG Urine Color YELLOW Urine Appearance CLEAR Urine pH 7.0 Urine Specific [place] 1.010 Urine Protein NEG Urine Glucose (UA) NEG Urine Ketones NEG Urine Occult Blood NEG Urine Nitrite POS Urine Bilirubin NEG Urine Urobilinogen NEG Urine Leukocyte Esterase SMALL Urine WBC (Auto) 10-30 /hpf Urine RBC (Auto) 0-4 /hpf Urine Hyaline Casts (Auto) 0 /lpf Urine Epithelial Cells (Auto) 5-10 /lpf Urine Bacteria (Auto) 1+ Triglycerides Level 85 mg/dl Cholesterol Level 160 mg/dl HDL Cholesterol 45 mg/dl LDL Cholesterol, Calculated 98 mg/dl VLDL Cholesterol, Calculated 17 mg/dl Cholesterol/HDL Ratio 3.6 Date/Time Source Procedure Growth Status 10/10/16 00:05 Urine , Clean Catch Urine Culture Pending Received Assessment & Plan 81 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 Acute L MCA stroke-risk factors include HTN and age. TTE reveals no PFO, no atrial fibrillation on telemetry overnight. pt has h/o intolerance to ASA based on epistaxis in the past (>5 yrs ago). This occurred in the winter time and required cautery and happened at least twice per her report. I have consulted ENT to weigh in on ASA use at this time, however, the benefit may outweigh the risk in this situation so we may just want to press forward with this and monitor her for stability. Will allow ENT and Neuro to weigh in first. Starting Lipitor 80 for plaque stabilization. Facial deficits are present but pt can swallow and otherwise has a normal neuro exam this morning. PT/OT has been in to see her. Will await for their thoughts on her going back home from a safety standpoint as she lives alone. 2. HTN-allow permissive HTN. Will add back her home antihypertensives at this time, especially clonidine to avoid any rebound hypertension. Lisinopril 20mg BID to start tonight, Norvasc 5mg, and Lopressor 75 BID 3. Rosacea-Topical metronidazole per home regimen 4. Anemia-likely dilutional with IVF. Monitor in am. 5. Hypokalemia-replace PO and recheck with Mg in am 6. Hypocalcemia-gave some IV calcium. Will recheck in am. 7. Bacteriuria-will empirically cover with Rocephin pending UCx result. DVT PROPHYLAXIS- Lovenox SQ Full code DISPOSITION-cont tele monitoring DO [facility] Consultants: Neuro, ENT Current Inpatient Medications: Current Inpatient Medications Medications (Trade) Dose Ordered Sig/Princess Route Start Time Stop Time Status Last Admin Dose Admin Enoxaparin Sodium (Lovenox Inj) 40 mg Q24H SC 10/09/16 22:00 11/08/16 21:59 10/09/16 23:38 40 MG Acetaminophen (Tylenol Tab) 650 mg Q4H PRN PO 10/09/16 21:45 11/08/16 21:44 Ondansetron HCl (Zofran Inj) 4 mg Q6H PRN IV 10/09/16 21:45 11/08/16 21:44 Atorvastatin Calcium (Lipitor Tab) 40 mg HS PO 10/10/16 21:00 11/09/16 20:59 Miscellaneous Information (Pharmacist Discharge Med Rec Consult) 1 ea UD PRN N/A 10/09/16 21:45 11/08/16 21:44 Sodium Chloride 1,000 ml @ 100 mls/hr Q10H IV 10/09/16 22:15 11/08/16 22:14 10/10/16 12:00 100 MLS/HR Gadobutrol (Gadavist) 5.9 mmol UD PRN IV 10/10/16 04:15 10/14/16 04:14 Potassium Chloride (Klor-Con Tab) 20 meq Q6H PO 10/10/16 10:45 10/10/16 16:46 10/10/16 12:00 20 MEQ
[2016-10-10] MEDS ORDERED: CEFTRIAXONE SOD INJ 1 GM in DEXTROSE 5% ADD-VANTAGE 50ML 50 ML IV SCH (14:00)
[2016-10-10] MEDS: CLONIDINE HCL 0.1 MG TAB PO SCH ×2 (14:05→22:04)
[2016-10-10] MEDS: ASCORBIC ACID 500 MG TAB PO SCH (14:05)
[2016-10-10] MEDS: METOPROLOL TARTRATE 50 MG TAB PO SCH ×2 (14:06→22:05)
[2016-10-10] MEDS: ATORVASTATIN 40 MG TAB PO SCH (14:06)
[2016-10-10] MEDS: AMLODIPINE BESYLATE 5 MG TAB PO SCH (14:06)
--- NOTE | 2016-10-10 14:28 | Neurology Consultation ---
Neurology Consultation Date of Consultation: Oct 10, 2016. Attending Physician: Aviva Smith DO Primary Care Physician: José Vergara D.O. Reason for Consultation: stroke like symptoms History of Present Illness Source: patient Rosemarie is a 81 y/o female with PMH - HTN, osteoporosis, who presented to ED with speech difficulty. When she was paying her bills the night prior she felt something was wrong. She went to bed and had a very restless night. When she got up the next morning she was having a hard time expressing herself with words. She lives alone and decided to go to practice the organ for her baptism. She was still having trouble forming her word. 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 Her daughter called and noticed her speech sounded slurred and prompted her to call 911. once she presented to the ED her speech was improving. She denies vision change, COHEN, dizziness, swallowing difficulty, focal weakness or numbness, SOB, chest pain, N/V/D, urinary changes. She states her blood pressure was elevated when she presented to the ED. She is aware she had a stroke. she was told not to take aspirin due to a severe nose bleed. She was told years ago she had an irregular heart beat. Past Medical/Surgical History Medical Problems: (1) Facial droop Status: Acute (2) Hypertension Status: Acute (3) Intractable pain Status: Acute (4) Right shoulder pain Status: Acute (5) Shoulder subluxation, right Status: Acute (6) Weakness Status: Acute Social History Alcohol Use: 1 glass of wine per day Drug Use: none Housing Status: lives with family Allergies Coded Allergies: Pneumococcal Vaccine (Verified Allergy, Mild, DIZZINESS AND FELT LOUSY, ) Sulfa Antibiotics (Verified Allergy, Unknown, ., 08/26/15) Aspirin (Verified Adverse Reaction, Unknown, epistaxis, 10/09/16) Current Inpatient Medications Current Inpatient Medications Medications (Trade) Dose Ordered Sig/Princess Route Start Time Stop Time Status Last Admin Dose Admin Enoxaparin Sodium (Lovenox Inj) 40 mg Q24H SC 10/09/16 22:00 11/08/16 21:59 10/09/16 23:38 40 MG Acetaminophen (Tylenol Tab) 650 mg Q4H PRN PO 10/09/16 21:45 11/08/16 21:44 Ondansetron HCl (Zofran Inj) 4 mg Q6H PRN IV 10/09/16 21:45 11/08/16 21:44 Miscellaneous Information (Pharmacist Discharge Med Rec Consult) 1 ea UD PRN N/A 10/09/16 21:45 11/08/16 21:44 Sodium Chloride 1,000 ml @ 100 mls/hr Q10H IV 10/09/16 22:15 11/08/16 22:14 10/10/16 12:00 100 MLS/HR Gadobutrol (Gadavist) 5.9 mmol UD PRN IV 10/10/16 04:15 10/14/16 04:14 Potassium Chloride (Klor-Con Tab) 20 meq Q6H PO 10/10/16 10:45 10/10/16 16:46 10/10/16 12:00 20 MEQ Atorvastatin Calcium (Lipitor Tab) 80 mg QAM PO 10/10/16 14:00 11/09/16 13:59 Amlodipine Besylate (Norvasc Tab) 5 mg DAILY PO 10/10/16 14:00 11/09/16 13:59 Ascorbic Acid (Vitamin C Tab) 500 mg DAILY PO 10/10/16 14:00 11/09/16 13:59 Metoprolol Tartrate (Lopressor Tab) 75 mg BID PO 10/10/16 14:00 11/09/16 13:59 Metronidazole HCl (Metrogel Topical Gel) 1 appln BID TOP 10/10/16 21:00 10/20/16 20:59 Multivitamins (Multivitamin Tab) 1 tab DAILY PO 10/11/16 09:00 11/10/16 08:59 Calcium/Vitamin D (Caltrate Plus Tab) 1 tab BID PO 10/10/16 21:00 11/09/16 20:59 Clonidine HCl (Catapres Tab) 0.2 mg BID PO 10/10/16 14:00 11/09/16 13:59 Lisinopril (Zestril Tab) 20 mg BID PO 10/10/16 21:00 11/09/16 12:29 Ceftriaxone Sodium 1 gm/ Dextrose 50 ml @ 100 mls/hr DAILY@1400 IV 10/10/16 14:00 10/15/16 13:59 Physical Exam Vital Signs (Past 24 Hrs): Date Time Temp Pulse Resp B/P (MAP) Pulse Ox O2 Delivery O2 Flow Rate FiO2 10/10/16 12:00 Room Air 10/10/16 11:49 37.3 71 16 160/90 (113) 97 Room Air 10/10/16 11:08 80 98 10/10/16 08:00 Room Air 10/10/16 07:45 37.5 60 16 158/90 (112) 94 Room Air 10/10/16 04:00 Room Air 10/10/16 04:00 37.1 83 20 162/95 (117) 96 Room Air 10/10/16 02:00 37.1 73 18 133/72 (92) 95 Room Air 10/10/16 01:10 37.2 64 18 131/78 (95) 96 10/10/16 00:15 37.0 75 16 148/79 (102) 94 Room Air 10/10/16 00:00 37.0 68 18 153/84 (107) 95 Room Air 10/10/16 00:00 Room Air 10/09/16 22:26 37.0 77 14 162/101 96 Room Air 10/09/16 21:58 88 18 136/79 96 10/09/16 21:31 88 18 136/79 96 Room Air 10/09/16 21:01 75 19 139/87 96 Room Air 10/09/16 20:33 75 10/09/16 20:31 81 17 144/96 95 Room Air 10/09/16 19:40 37.0 91 18 183/119 99 Room Air 10/09/16 19:40 Room Air Physical Exam: Constitutional: appearance nourished, healthy and normal Ears, Nose, Mouth and Throat: mucous membranes moist, no injection and skin normal, eyes normal Cardiovascular: irregular Respiratory: clear to auscultation (CTA) and no rales, rhonchi or wheeze Musculoskeletal: no peripheral edema and good distal pulses, digits with severe arthritis deformity Skin: no stigmata of neurocutaneous disease noted and normal and intact Eyes: extraocular muscles intact (EOMI) and pupils equal, round and reactive to light (PERRL) NEUROLOGIC EXAMINATION: Mental status: Alert and interactive Oriented to person Speech fluent with no evidence of aphasia, able to identify keys, pen cell phone and what you do with them. can say no ifs ands or buts. Cranial Nerves smile and eye brow raise symmetric, tongue midline Reflexes: Deep tendon reflexes were symmetrical and graded 2/5. Sensory: vibration light touch-intact Coordination: finger to nose without bi pass Gait/Stance: Posture sitting up in bed Motor: Negative for pronator drift of out stretched arms with eyes closed. 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 cashier 5/5 bilaterally, hip flex plantar flex ext bilaterally 5/5 Laboratory Results Past 24 Hours: 10/10/16 06:15 Red Blood Count 3.55, Mean Corpuscular Volume 98.9, Mean Corpuscular Hemoglobin 33.0, Mean Corpuscular Hemoglobin Concent 33.3, Mean Platelet Volume 10.2, Neutrophils (%) (Auto) 58.7, Lymphocytes (%) (Auto) 26.2, Monocytes (%) (Auto) 14.1, Eosinophils (%) (Auto) 0.7, Basophils (%) (Auto) 0.2, Neutrophils # (Auto ) 5.05, Lymphocytes # (Auto) 2.25, Monocytes # (Auto) 1.21, Eosinophils # (Auto ) 0.06, Basophils # (Auto) 0.02 10/10/16 06:15 Test 10/09/16 19:36 10/10/16 00:05 10/10/16 06:15 Red Blood Cell Morphology Unremarkable Prothrombin Time 12.0 SECONDS (9.0-12.0) Prothromb Time International Ratio 1.1 (0.9-1.1) Activated Partial Thromboplast Time 28.4 SECONDS (21.0-31.0) Partial Thromboplastin Ratio 1.1 Estimated Average Glucose 108 mg/dl Hemoglobin A1c 5.4 % (4.5-5.6) Total Bilirubin 0.5 mg/dl (0.2-1) Direct Bilirubin 0.2 mg/dl (0-0.2) Aspartate Amino Transf (AST/SGOT) 23 U/L (15-37) Alanine Aminotransferase (ALT/SGPT) 25 U/L (12-78) Alkaline Phosphatase 79 U/L (45-117) Total Creatine Kinase 107 U/L (26-192) Creatine Kinase MB 2.5 ng/ml (0.5-3.6) Creatine Kinase MB Ratio 2.3 (0-3.0) Troponin I < 0.015 ng/ml (0-0.045) Total Protein 9.2 gm/dl (6.4-8.2) Albumin 4.1 gm/dl (3.4-5.0) Lyme Disease IgG Antibody NEG (NEG) Lyme Disease IgM Antibody NEG (NEG) Urine Color YELLOW Urine Appearance CLEAR (CLEAR) Urine pH 7.0 (4.5-7.5) Urine Specific [place] 1.010 (1.000-1.030) Urine Protein NEG (NEG) Urine Glucose (UA) NEG (NEG) Urine Ketones NEG (NEG) Urine Occult Blood NEG (NEG) Urine Nitrite POS (NEG) Urine Bilirubin NEG (NEG) Urine Urobilinogen NEG (NEG) Urine Leukocyte Esterase SMALL (NEG) Urine WBC (Auto) 10-30 /hpf (0-5) Urine RBC (Auto) 0-4 /hpf (0-4) Urine Hyaline Casts (Auto) 0 /lpf (0-5) Urine Epithelial Cells (Auto) 5-10 /lpf (0-5) Urine Bacteria (Auto) 1+ (NEG) White Blood Count 8.60 K/uL (4.8-10.8) Red Blood Count 3.55 M/uL (4.2-5.4) Hemoglobin 11.7 g/dL (12.0-16.0) Hematocrit 35.1 % (37-47) Mean Corpuscular Volume 98.9 fL (80-100) Mean Corpuscular Hemoglobin 33.0 pg (25-34) Mean Corpuscular Hemoglobin Concent 33.3 g/dl (32-36) Platelet Count 283 K/uL (130-400) Mean Platelet Volume 10.2 fL (7.4-10.4) Neutrophils (%) (Auto) 58.7 % Lymphocytes (%) (Auto) 26.2 % Monocytes (%) (Auto) 14.1 % Eosinophils (%) (Auto) 0.7 % Basophils (%) (Auto) 0.2 % Neutrophils # (Auto) 5.05 K/uL (1.4-6.5) Lymphocytes # (Auto) 2.25 K/uL (1.2-3.4) Monocytes # (Auto) 1.21 K/uL (0.11-0.59) Eosinophils # (Auto) 0.06 K/uL (0-0.5) Basophils # (Auto) 0.02 K/uL (0-0.2) RDW Standard Deviation 47.0 fL (36.4-46.3) RDW Coefficient of Variation 12.9 % (11.5-14.5) Immature Granulocyte % (Auto) 0.1 % Immature Granulocyte # (Auto) 0.01 K/uL (0.00-0.02) Anion Gap 13.0 mmol/L (3-11) Est Creatinine Clear Calc Drug Dose 53.6 ml/min Estimated GFR () 96.3 Estimated GFR (Non- 83.1 BUN/Creatinine Ratio 17.1 (10-20) Calcium Level 7.9 mg/dl (8.5-10.1) Triglycerides Level 85 mg/dl (0-150) Cholesterol Level 160 mg/dl (0-200) HDL Cholesterol 45 mg/dl LDL Cholesterol, Calculated 98 mg/dl VLDL Cholesterol, Calculated 17 mg/dl Cholesterol/HDL Ratio 3.6 Imaging MRI brain without- Acute watershed type infarct involving the left middle cerebral arterial distribution. Atrophy with components of chronic small vessel change of aging. Note is made that these images are submitted to the radiologist in a delayed fashion MRA brain -Mild focal narrowing within the proximal left SOFTWARE ENGINEER. Otherwise, significant stenosis, occlusion, or aneurysm within the remaining [place]. MRA neck-No significant stenosis, occlusion, or dissection identified within the carotid or vertebral arteries. Mild scattered atherosclerotic change TTE- * The left ventricle is normal in size. * There is moderate concentric left ventricular hypertrophy. * The left ventricular wall motion is normal. * Ejection Fraction = 55-60%. * Aortic valve sclerosis moderate, without significant aortic valvular stenosis. * Trace aortic regurgitation. * There is moderate to severe mitral annular calcification. * There is trace mitral regurgitation. * There is trace tricuspid regurgitation. * Right ventricular systolic pressure is elevated at 30-40mmHg. * The interatrial septum is intact with no evidence for an atrial septal defect. * Injection of contrast documented no interatrial shunt. Impression 81 year old female aphasia x 24 hours - stroke L MCA Plan 1. permissive hypertension 2. TTE with no shunting 3. will need out patient ZIO monitoring- need to rule out afib or irregular heart beat 4. aspirin and plavix would be recommended -was held due to hx nose bleeding the nose bleed was when she was 8 years old- needs at least mono therapy of aspirin 81 mg or plavix 75 mg daily would not load try one or the other and see if she has any difficult 5. platelet count in good range 6. PT/OT speech for any discharge needs 7. HTN, DL, optimize I have seen and discussed above patient with Dr Alejo Orantes, neurology I have seen this woman and reviewed her history and exam along with imaging studies and her echo and rhythm strips Has most likely embolic infarctions left mca territory from eithre the arota or paroxysmal a fib and the concept of a watershed infarct to me is a bit of a stretch pathophysiologically. the nose bleed history is remote ( age 8 ) and the caution against asa is likely a bit excessive. exam shows speech hesitancy word finding issues and a mild right linda at most would pick one antiplately rx at this time ie plavix and get outpatient zio patch or cardionet Doubt she will need more than outpatient speech therapy we will follow up tomorrow Bartolo Orantes MD
[2016-10-10] MEDS ORDERED: CLOPIDOGREL BISULFATE 75 MG TAB PO ONE (17:00)
[2016-10-10] MEDS: LISINOPRIL 20 MG TAB PO SCH (20:58)
[2016-10-10] MEDS: CALCIUM 600MG + VIT D 400 IU TAB PO SCH (20:58)
[2016-10-10] MEDS: METRONIDAZOLE 0.75% TOPICAL GEL 45 GM TUBE TOP SCH (20:58)
[2016-10-10] MEDS ORDERED: ATORVASTATIN 40 MG TAB PO SCH (21:00)
[2016-10-10] MEDS: ENOXAPARIN 40 MG/0.4 ML SYR SC SCH (22:05)
[2016-10-11] MEDS: SODIUM CHLORIDE 0.9% 1000ML 1,000 ML IV SCH (00:55)
[2016-10-11 03:56] VITALS: BP 172/83; PULSE 59; TEMP 36.8; O2SAT 99
[2016-10-11 04:00] VITALS: O2SAT 99
[2016-10-11 06:07] LABS: BASO % 0.8 %; BASO ABS # 0.05 K/uL (0-0.2); COMPLETE YES; EOS % 1.7 %; HEMATOCRIT 35.9 % (37-47); IG% 0.2 %; LYMPH ABS # 2.26 K/uL (1.2-3.4); MEAN CELL VOLUME 99.4 fL (80-100); MEAN CORPUSCULAR HEMOGLOBIN 32.4 pg (25-34); MEAN CORPUSCULAR HGB CONC 32.6 g/dl (32-36); MEAN PLATELET VOLUME 9.9 fL (7.4-10.4); MONO % 13.7 %; NEUT % 49.6 %; PLATELET COUNT 276 K/uL (130-400); RED BLOOD COUNT 3.61 M/uL (4.2-5.4); WHITE BLOOD COUNT 6.64 K/uL (4.8-10.8)
[2016-10-11 06:47] LABS: BUN/CREATININE RATIO 10.9 (10-20); CALCIUM 8.1 mg/dl (8.5-10.1); CREATININE 0.66 mg/dl (0.60-1.20); MAGNESIUM 1.7 mg/dl (1.8-2.4); POTASSIUM 3.9 mmol/L (3.5-5.1)
[2016-10-11 07:36] VITALS: BP 159/89; PULSE 56; TEMP 37.2; O2SAT 97
[2016-10-11] MEDS ORDERED: MAGNESIUM SULFATE 1GM / D5W 1 GM in PREMIXED IN D5W 100 ML IV SCH (08:15)
[2016-10-11] MEDS: CALCIUM 600MG + VIT D 400 IU TAB PO SCH (08:36)
[2016-10-11] MEDS: METOPROLOL TARTRATE 50 MG TAB PO SCH (08:36)
[2016-10-11] MEDS: ASCORBIC ACID 500 MG TAB PO SCH (08:36)
[2016-10-11] MEDS: ATORVASTATIN 40 MG TAB PO SCH (08:36)
[2016-10-11] MEDS: METRONIDAZOLE 0.75% TOPICAL GEL 45 GM TUBE TOP SCH (08:37)
[2016-10-11] MEDS: AMLODIPINE BESYLATE 5 MG TAB PO SCH (08:37)
[2016-10-11] MEDS: CLONIDINE HCL 0.1 MG TAB PO SCH (08:56)
[2016-10-11] MEDS: LISINOPRIL 20 MG TAB PO SCH (08:57)
[2016-10-11] MEDS ORDERED: CLOPIDOGREL BISULFATE 75 MG TAB PO SCH (09:00)
[2016-10-11] MEDS ORDERED: MULTIVITAMIN TAB PO SCH (09:00)
[2016-10-11] MEDS ORDERED: CALCIUM GLUCONATE IV ONE (09:45)
[2016-10-11] MEDS ORDERED: [UNRECOGNIZED DRUG - OTHER] IV ONE (09:45)
[2016-10-11] MEDS ORDERED: MAG SULFATE IV ONE (09:45)
[2016-10-11 11:44] VITALS: BP 127/83; PULSE 52; TEMP 36.4; O2SAT 96
[2016-10-11] MEDS ORDERED: CALCTAB7 PO (12:22)
[2016-10-11] MEDS ORDERED: ATOR-26 PO (12:22)
[2016-10-11] MEDS ORDERED: PLV75 PO (12:22)
[2016-10-11] MEDS ORDERED: CIPR250T3 PO (12:22)
--- NOTE | 2016-10-11 12:36 | Discharge Instructions ---
Discharge Instructions Date of Service Oct 11, 2016. Admission Reason for Admission: Stroke-Like Symptoms Discharge Discharge Diagnosis / Problem: Stroke, UTI Discharge Goals Goal(s): Prevent Disease Progression Activity Recommendations Activity Limitations: per Instructions/Follow-up section . Instructions / Follow-Up Instructions / Follow-Up Risk Factors for Stroke: You can reduce your chances of stroke by working with your medical provider to adopt a healthy lifestyle. Some specific ways to lower your chance of stroke are: * If you are a smoker, now is the time to stop smoking cigarettes * If you are diabetic, improve the control of your blood sugars * Avoid excessive amounts of alcohol * Control high blood pressure * Lose weight if you are overweight * Be sure to lead an active lifestyle * Eat a healthy diet low in salt, cholesterol and fat You should know about other risk factors for stroke that you are unable to control. These include: * Age 55 years or older * Male gender * Certain racial groups: , or / * Family History of Stroke, Mini stroke or Heart Attack * Sickle Cell Disease Follow Up: It is important for you to keep your follow up appointments with your medical provider. ADDITIONAL PROVIDER INSTRUCTIONS: 1. Please take all medications as instructed. 2. Please obtain refills for Plavix and Lipitor from your primary care physician's office (PCP) as this will prevent against future strokes. 3. You will need an outpatient referral and follow-up with Dr. Alejo Orantes at [facility] in the next 2-3 weeks. 4. Additionally, you will need to undergo an outpatient event monitor for 14 days. This may require an outpatient referral to a Property Controller, which can be set up through your PCP. 5. You were found to have bacteria in your urine and have been placed on a short course of antibiotics. Urine culture results are pending at discharge and will need to be followed up by your PCP. 6. While in the hospital your Magnesium, Calcium and Potassium were low. This should be rechecked within the next week to ensure things are better after replacement. You were provided a lab prescription to get this done with results to be sent to Dr. Vergara's office. 7. You have been scheduled with Dr. Holly Vivas at the [facility] location for Sunday, 10/13 @ 12:45. This is an important follow-up post- hospital discharge to help orchestrate all of the above and ensure you are progressing well. 8. Per physical therapy evaluation in the hospital, they recommend home PT. Home Health for PT will be ordered until goals are met. If speech therapy is needed, this can also be arranged, however, for now continue with the exercises given to you by the Speech Therapist you saw in the hospital. It was a pleasure taking care of you! Call if you have any questions or problems. You can reach a [place] Hospitalist on duty at [facility] 24 hours a day by calling [phone]. Take care of yourself. Aviva Smith, [facility] Hospitalist Current Hospital Diet Patient's current hospital diet: AHA Diet (Heart Healthy) Discharge Diet Recommended Diet: AHA Diet (Heart Healthy) Procedures Procedures Performed: TTE (10/10): -- Conclusions -- The left ventricle is normal in size. There is moderate concentric left ventricular hypertrophy. The left ventricular wall motion is normal. Ejection Fraction = 55-60%. Aortic valve sclerosis moderate, without significant aortic valvular stenosis. Trace aortic regurgitation. There is moderate to severe mitral annular calcification. There is trace mitral regurgitation. There is trace tricuspid regurgitation. Right ventricular systolic pressure is elevated at 30-40mmHg. The interatrial septum is intact with no evidence for an atrial septal defect. Injection of contrast documented no interatrial shunt. Pending Studies Studies pending at discharge: yes List of pending studies: Urine culture sensitivities pending Laboratory Results Hemoglobin A1c Test 10/09/16 19:36 Range/Units Estimated Average Glucose 108 mg/dl Hemoglobin A1c 5.4 4.5-5.6 % Lipid Panel Test 10/10/16 06:15 Range/Units Triglycerides Level 85 0-150 mg/dl Cholesterol Level 160 0-200 mg/dl HDL Cholesterol 45 mg/dl Cholesterol/HDL Ratio 3.6 LDL Cholesterol, Calculated 98 mg/dl Medical Emergencies . Who to Call and When: Medical Emergencies: Call 911 immediately if you experience any of the following warning signs and symptoms of Stroke: * Sudden numbness or weakness of the face, arm or leg, especially on one side of the body * Sudden confusion, trouble speaking or understanding * Sudden trouble seeing in one or both eyes * Sudden trouble walking, dizziness, loss of balance or coordination * Sudden severe headache with no cause Do not delay calling 911 if you experience any warning signs or symptoms of a stroke. Delay in seeking medical attention may affect what treatments can be given to you. . Non-Emergent Contact Non-Emergency issues call your: Primary Care Provider . . "Provider Documentation" section prepared by Aviva Smith. . Stroke Core Measures Reason no t-PA for Stroke: Treatment not indicated Reason no antithrom by day 2: Treatment provided - N/A Reason no antithrom at D/C: Treatment provided - N/A Reason no statin at D/C: Treatment provided - N/A Reason no anticoag w/a fib: Treatment not indicated VTE Core Measure Inpt VTE Proph given/why not?: Enoxaparin (Lovenox)SQ
--- NOTE | 2016-10-11 12:43 | Discharge Summary ---
Discharge Summary Date of Service Oct 11, 2016. Discharge Summary Admission Date: Oct 09, 2016 at 21:18 Discharge Date: Oct 11, 2016 Discharge Disposition: Home with services Principal Diagnosis: Acute L MCA stroke HTN Uncomplicated UTI Rosacea Anemia Hypokalemia-replaced Hypomagnesemia-replaced Hypocalcemia-replaced Procedures: TTE 10/10 * -- Conclusions -- * The left ventricle is normal in size. * There is moderate concentric left ventricular hypertrophy. * The left ventricular wall motion is normal. * Ejection Fraction = 55-60%. * Aortic valve sclerosis moderate, without significant aortic valvular stenosis. * Trace aortic regurgitation. * There is moderate to severe mitral annular calcification. * There is trace mitral regurgitation. * There is trace tricuspid regurgitation. * Right ventricular systolic pressure is elevated at 30-40mmHg. * The interatrial septum is intact with no evidence for an atrial septal defect. * Injection of contrast documented no interatrial shunt. Vaccinations: None. Consultations: Neuro, ENT Pending Studies/Follow-Up: per instructions below Medication Reconciliation New Medications: Ciprofloxacin (Cipro) 250 Mg Tab 1 TAB PO BID for 3 Days, #6 TAB Atorvastatin (Lipitor) 80 Mg Tab 1 TAB PO HS for 30 Days, #30 TAB 3 Refills Calcium Carbonate-Vitamin D W/ (Caltrate 600 Plus) 1 Tab Tab 1 TAB PO BID for 30 Days, #60 TAB 3 Refills Clopidogrel Bisulfate (Clopidogrel) 75 Mg Tab 75 MG PO QAM for 30 Days, #30 TAB 3 Refills Continued Medications: Amlodipine (Norvasc) 5 Mg Tab 5 MG PO DAILY, TAB Ascorbic Acid (Ascorbic Acid) 500 Mg Tab 500 MG PO DAILY, TAB Clonidine Hcl (Catapres) 0.2 Mg Tab 0.2 MG PO BID, TAB Denosumab (Prolia) 60 Mg/Ml Connie 1 ML SQ [id number] Lisinopril (Zestril) 20 Mg Tab 20 MG PO BID, 0 Refills Metoprolol Tartrate (Lopressor) (Lopressor) 50 Mg Tab 75 MG PO BID, 0 Refills Metronidazole Hcl (Metrogel) Gel 1 APPLN TD BID Multivitamin (Multivitamin) Tab 1 TAB PO DAILY, TAB Discontinued Medications: Calcium Carbonate-Vitamin D (Caltrate 600+D) 1 Chw Chw 1 TAB PO DAILY Admission Information HPI (per Admitting provider): This is an 81 y/o female with PMH of hypertension, osteoporosis, and other problems listed below who presents to the ED with speech difficulty. Patient states last night she was stressed while paying bills but felt neurologically at baseline. Went to bed around 10 pm, had fitful night of sleep, then when she awoke around 6:30 am she noticed that she was having difficulty getting words out. Patient lives alone. 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 Patient states speech is now improved but not back to baseline. Patient denies vision change, COHEN, dizziness, swallowing difficulty, focal weakness or numbness , fever, chills, URI symptoms, cough, SOB, chest pain, N/V/D, urinary changes. Pt reports she did not tolerate aspirin in the past due to epistaxis. No recent abnormal bleeding. Denies history of TIA, CVA, atrial fibrillation, HL, DM. In the ER patient's BP was initially 180s/110s, now improved to 130s systolic. Pt states her BP is generally controlled in clinic on her meds. Took AM meds today but not PM doses. Physical Exam (per Admitting): General Appearance: WD/WN, no apparent distress, + pertinent finding (alert 81 year old female) Head: normocephalic, atraumatic Eyes: normal inspection, PERRL, EOMI, sclerae normal ENT: hearing grossly normal, pharynx normal Neck: supple, no carotid bruits, trachea midline Respiratory/Chest: lungs clear, normal breath sounds, no respiratory distress, no accessory muscle use Cardiovascular: regular rate, rhythm, no murmur Abdomen/GI: normal bowel sounds, non tender, soft Extremities/Musculoskelatal: no calf tenderness, no pedal edema Neurologic/Psych: no motor/sensory deficits, alert, normal mood/affect, oriented x 3, + pertinent finding (mild dysarthria. right facial droop. finger to nose intact. 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 TTE reveals no PFO, no atrial fibrillation on telemetry overnight. She was started on Plavix and high dose statin for secondary prevention and plaque stabilization. Facial deficits were present but improved overnight and pt can swallow and otherwise has a normal neuro exam the morning of discharge. PT/OT and speech evaluations were completed. Her antihypertensives were carefully added back per her home regimen to still allow for permissive hypertension in the setting of acute stroke. She had some bacteriuria which was covered empirically with Rocephin and was switched to Cipro with sensitivities later reporting no FQ-resistance. On day of discharge she was ambulating at baseline, mentating appropriately, tolerating PO without difficulty swallowing and was discharged to home in stable condition with continued HH for PT as outpatient. Will defer to outpatient PCP for further needs for Speech Therapy. Total time spent on discharge = 60 minutes This includes examination of the patient, discharge planning, medication reconciliation, and communication with other providers. Discharge Instructions Discharge Instructions Date of Service Oct 11, 2016. Admission Reason for Admission: Stroke-Like Symptoms Discharge Discharge Diagnosis / Problem: Stroke, UTI Discharge Goals Goal(s): Prevent Disease Progression Activity Recommendations Activity Limitations: per Instructions/Follow-up section . Instructions / Follow-Up Instructions / Follow-Up Risk Factors for Stroke: You can reduce your chances of stroke by working with your medical provider to adopt a healthy lifestyle. Some specific ways to lower your chance of stroke are: * If you are a smoker, now is the time to stop smoking cigarettes * If you are diabetic, improve the control of your blood sugars * Avoid excessive amounts of alcohol * Control high blood pressure * Lose weight if you are overweight * Be sure to lead an active lifestyle * Eat a healthy diet low in salt, cholesterol and fat You should know about other risk factors for stroke that you are unable to control. These include: * Age 55 years or older * Male gender * Certain racial groups: , or / * Family History of Stroke, Mini stroke or Heart Attack * Sickle Cell Disease Follow Up: It is important for you to keep your follow up appointments with your medical provider. ADDITIONAL PROVIDER INSTRUCTIONS: 1. Please take all medications as instructed. 2. Please obtain refills for Plavix and Lipitor from your primary care physician's office (PCP) as this will prevent against future strokes. 3. You will need an outpatient referral and follow-up with Dr. Alejo Orantes at [facility] in the next 2-3 weeks. 4. Additionally, you will need to undergo an outpatient event monitor for 14 days. This may require an outpatient referral to a Manager Human Capital, which can be set up through your PCP. 5. You were found to have bacteria in your urine and have been placed on a short course of antibiotics. Urine culture results are pending at discharge and will need to be followed up by your PCP. 6. While in the hospital your Magnesium, Calcium and Potassium were low. This should be rechecked within the next week to ensure things are better after replacement. You were provided a lab prescription to get this done with results to be sent to Dr. Vergara's office. 7. You have been scheduled with Dr. Holly iVvas at the [facility] location for Sunday, 10/13 @ 12:45. This is an important follow-up post- hospital discharge to help orchestrate all of the above and ensure you are progressing well. 8. Per physical therapy evaluation in the hospital, they recommend home PT. Home Health for PT will be ordered until goals are met. If speech therapy is needed, this can also be arranged, however, for now continue with the exercises given to you by the Speech Therapist you saw in the hospital. It was a pleasure taking care of you! Call if you have any questions or problems. You can reach a [place] Hospitalist on duty at [facility] 24 hours a day by calling [phone]. Take care of yourself. Aviva Smith, DO [facility]ist Additional Copies To Alejo Orantes M.D. (MEDICINE); Holly VIVAS .Reza; José Vergara D.O.
[2016-10-11 14:06] VITALS: BP 125/84; PULSE 62; TEMP 36.8; O2SAT 98
--- NOTE | 2016-10-11 14:25 | Pharmacy Progress Note ---
Pharmacist Stroke Counseling Date of Service Oct 11, 2016. Scope Pharmacy has been consulted to provide medication discharge counseling for this patient admitted with ischemic stroke/hemorrhagic stroke/ transient ischemic attack as per the Pharmacist Discharge Counseling for Stroke Patients Protocol. Medications on Discharge New Medications: Ciprofloxacin (Cipro) 250 Mg Tab 1 TAB PO BID for 3 Days, #6 TAB Atorvastatin (Lipitor) 80 Mg Tab 1 TAB PO HS for 30 Days, #30 TAB 3 Refills Calcium Carbonate-Vitamin D W/ (Caltrate 600 Plus) 1 Tab Tab 1 TAB PO BID for 30 Days, #60 TAB 3 Refills Clopidogrel Bisulfate (Clopidogrel) 75 Mg Tab 75 MG PO QAM for 30 Days, #30 TAB 3 Refills Continued Medications: Amlodipine (Norvasc) 5 Mg Tab 5 MG PO DAILY, TAB Ascorbic Acid (Ascorbic Acid) 500 Mg Tab 500 MG PO DAILY, TAB Clonidine Hcl (Catapres) 0.2 Mg Tab 0.2 MG PO BID, TAB Denosumab (Prolia) 60 Mg/Ml Connie 1 ML SQ [id number] Lisinopril (Zestril) 20 Mg Tab 20 MG PO BID, 0 Refills Metoprolol Tartrate (Lopressor) (Lopressor) 50 Mg Tab 75 MG PO BID, 0 Refills Metronidazole Hcl (Metrogel) Gel 1 APPLN TD BID Multivitamin (Multivitamin) Tab 1 TAB PO DAILY, TAB Discontinued Medications: Calcium Carbonate-Vitamin D (Caltrate 600+D) 1 Chw Chw 1 TAB PO DAILY Action The above medications, specifically ones for stroke treatment/prophylaxis, have been reviewed in detail with the patient and/or patient technology sales representative(s) prior to discharge. This includes indication, common adverse reactions, drug interactions, and medication administration. Medication counseling has been employed using the teach-back method to ensure understanding. Outcome The patient and/or patient technology sales representative(s) have demonstrated understanding of the medications. Please note, they are aware that the pharmacist will call them within 72 hours post-discharge to confirm that the appropriate medications are being taken and answer any further medication related questions the patient might have at that time. Contact information Individual to be contacted: Rosemarie Relationship to patient (if applicable): Patient/SELF Phone number: [phone] Best time to call: DAYTIME Additional comments: Pt not yet aware when post-discharge physician follow-up will take place. Thank you for allowing pharmacy to be involved in the care of this patient. Please call [phone] or [phone] with any additional questions
--- NOTE | 2016-10-16 12:37 | Pharmacy Progress Note ---
Pharmacist Post D/C Phone Note Date of phone call: Oct 16, 2016. Individual with whom pharmacist spoke to: PATIENT The following questions were reviewed during the phone call with responses listed below each: Can you tell me the medications that you are currently taking as well as when and how you take each medication? - Medications Dose Route/Sig Max Daily Dose Days Date Category Caltrate 600 Plus (Calcium Carbonate-Vitamin D W/) 1 Tab Tab 1 Tab PO BID 30 10/11/16 Rx Lipitor (Atorvastatin Calcium) 80 Mg Tab 1 Tab PO HS 30 10/11/16 Rx Clopidogrel (Clopidogrel Bisulfate) 75 Mg Tab 75 Mg PO QAM 30 10/11/16 Rx Prolia (Denosumab) 60 Mg/Ml Connie 1 Ml SQ [id number] 10/09/16 Reported Ascorbic Acid 500 Mg Tab 500 Mg PO DAILY 10/09/16 Reported Multivitamin (Multivitamins) Tab 1 Tab PO DAILY 10/09/16 Reported Norvasc (Amlodipine Besylate) 5 Mg Tab 5 Mg PO DAILY 10/09/16 Reported Catapres (Clonidine Hcl) 0.2 Mg Tab 0.2 Mg PO BID 08/25/15 Reported Metrogel (Metronidazole HCl) Gel 1 Appln TD BID 11/18/09 Reported Lopressor (Metoprolol Tartrate) 50 Mg Tab 75 Mg PO BID 11/18/09 Reported Zestril (Lisinopril) 20 Mg Tab 20 Mg PO BID 11/18/09 Reported When have you missed any doses of your medications? - NONE What side effects are you having from your medications? - NONE What questions do you have about your medications? - NONE What problems are you having obtaining your medications? - NONE When is your next appointment with your primary care doctor? - At the end of October, Additional comments: - NONE As per the Pharmacist Discharge Counseling for Stroke Patients Protocol, this phone call has been completed within 72 hours of discharge. Thank you for allowing us to be involved in the care of this patient.
[2016-11-05] MEDS ORDERED: CLC100 PO (16:53)
[2016-11-05] MEDS ORDERED: LPR100 PO (16:53)
[2016-11-05] MEDS ORDERED: WARF5TAB90 PO (16:53)
[2016-11-05] MEDS ORDERED: LVNIS60 SQ (16:53)
== END 2016-10-11 15:11 | disposition home health service (06) | DRG 66 ==
LOC: EDBD 19:38 → C.EDB 19:42 → C.2T 21:18 → ENRESERV 21:48
PROVIDERS: ADMIT Family Medicine; ATTEND Hospitalist
PROC: B245ZZ4 Ultrasonography of Left Heart, Transesophageal (ICD-10-PCS; principal; 2016-10-10)
DX: I63.9 Cerebral infarction, unspecified (principal); E78.5 Hyperlipidemia, unspecified; I10 Essential (primary) hypertension; M81.0 Age-related osteoporosis without current pathological fracture; E83.51 Hypocalcemia; E87.6 Hypokalemia; L71.9 Rosacea, unspecified; R82.71 Bacteriuria; A49.8 Other bacterial infections of unspecified site

== ENCOUNTER 2016-11-02 01:51 | Inpatient (IN) | payer OTHER ==
[2016-11-02] VITALS (9 sets, daily range): BP systolic 106–154; BP diastolic 62–90; PULSE 60–99; TEMP 36.5–36.8; O2SAT 93–99; Ht 157.5 cm; Wt 57.1 kg
[~2016-11-02] VITALS: Ht 157.5 cm; Wt 57.1 kg
[~2016-11-02 01:51] MED LIST changes: +AMLO-110 PO; +ASCO500T16 PO; +ATOR-26 PO; +CALCTAB7 PO; +DENO60SO SQ; +MULT-506 PO; +PLV75 PO
[2016-11-02] MEDS ORDERED: CALCTAB7 PO (02:28)
[2016-11-02] MEDS ORDERED: ATOR-26 PO (02:28)
[2016-11-02] MEDS ORDERED: METR0.7527 TD (02:28)
[2016-11-02] MEDS ORDERED: CLOP1TAB15 PO (02:28)
[2016-11-02] MEDS ORDERED: HYDROmorphone INJ 0.5 MG/0.5 ML SYR IV STA (02:34)
--- NOTE | 2016-11-02 02:38 | EMERGENCY ROOM VISIT NOTE ---
History Report prepared by Densi: Alfonzo Delong Under the Supervision of: Dr. Antonia Soni D.O. First contact with patient: 02:14 Chief Complaint: ABDOMINAL PAIN Stated Complaint: ABDOMINAL PAIN Nursing Triage Summary: Pt c/o diffuse abdominal pain throughout abdomin since October 31. Pt states she takes Metamucil regularly. History of Present Illness The patient is an 81 year old female who presents to the Emergency Room with complaints of worsening abdominal pain that began two days prior to arrival. The patient states that her pain is localized to the lower abdomen. She denies any nausea or vomiting to this point. She also denies any recent diarrhea or bloody stool. She does have a history of diverticulitis and notes that she had lower abdominal pain with this episode. The patient has also had a hysterectomy and appendectomy. 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 A total of 10 systems reviewed and were otherwise negative. 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 Surgical Problems: (1) H/O exploratory laparotomy (2) H/O laminectomy (3) H/O shoulder surgery (4) Hx of cardiac cath (5) Hx of tonsillectomy (6) S/P ELEN-BSO Family History Cancer Diabetes mellitus FH: heart disease Stroke BROTHER (in his 70s) Social History Smoking Status: Never Smoker Alcohol Use: occasionally Drug Use: none Housing Status: lives with family Current/Historical Medications Scheduled Amlodipine (Norvasc), 5 MG PO DAILY Ascorbic Acid (Ascorbic Acid), 500 MG PO DAILY Atorvastatin (Lipitor), 80 MG PO DAILY Calcium Carbonate-Vitamin D W/ (Caltrate 600 Plus), 1 TAB PO BID Clonidine Hcl (Catapres), 0.2 MG PO BID Clopidogrel (Plavix), 75 MG PO DAILY Denosumab (Prolia), 1 ML SQ [id number] Lisinopril (Zestril), 20 MG PO BID Metoprolol Tartrate (Lopressor) (Lopressor), 75 MG PO BID Metronidazole (Topical) (Metrogel), 1 APPLN TD BID Multivitamin (Multivitamin), 1 TAB PO DAILY Allergies Coded Allergies: Pneumococcal Vaccine (Verified Allergy, Mild, DIZZINESS AND FELT LOUSY, 11/02/16) Sulfa Antibiotics (Verified Allergy, Unknown, ., 11/02/16) Aspirin (Verified Adverse Reaction, Unknown, epistaxis, 11/02/16) Physical Exam Vital Signs Date Time Temp Pulse Resp B/P (MAP) Pulse Ox O2 Delivery O2 Flow Rate FiO2 11/02/16 05:06 92 11/02/16 03:40 97 16 126/90 94 Room Air 11/02/16 02:00 122 11/02/16 01:57 36.6 96 29 141/107 99 Room Air Physical Exam HEENT: Head - normocephalic and atraumatic Pupils are equal, round, and reactive to light. Extraocular eye muscles are intact, and sclera are anicteric. Nose - moist nasal mucosa without discharge. Mouth - moist buccal mucosa. Oropharynx is nonerythematous and there is no tonsillar exudate or edema noted. Neck: Supple; no JVD, nuchal rigidity, cervical lymphadenopathy. Heart: Irregular rate with normal rhythm. There is a normal S1 and S2 with no murmurs, clicks, or gallops appreciated. Lungs: Clear to auscultation bilaterally with no wheezes, rales, or rhonchi. Abdomen: Soft, with tenderness to palpation diffusely, nondistended, with good bowel sounds. There are no palpable pulsatile masses or hepatosplenomegaly. There is no guarding, rigidity, or rebound noted. Extremities: No evidence of cyanosis, clubbing, or edema. There are easily palpable peripheral pulses. Skin: warm and dry with good turgor and no rashes. Medical Decision & Procedures ER Provider Diagnostic Interpretation: Radiology results as stated below per my review and the radiologist's interpretation: OBSTRUCTION SERIES: No free air, small air fluid levels throughout the bowel. Concerning for possible bowel obstruction. CT ABDOMEN & PELVIS: Impression: Noninflamed colon diverticulosis. Apparent bowel wall thickening of the descending and sigmoid colon which may be secondary to under distention and less likely a nonspecific colitis. Additional findings: Coarse reticular opacities seen in the lower lungs likely chronic interstitial lung disease. The liver, spleen, pancreas, and gland are unremarkable. The gallbladder is unremarkable. Simple cysts within the right kidney. Otherwise the kidneys and ureters are unremarkable. Circumferential thickening of the urinary bladder with with adjacent stranding which may be secondary to underdistention. Correlation with urinalysis to exclude cystitis. The uterus is surgically absent. NO adnexal masses. The appendix is not visualized and may be diminutive versus surgically absent. No acute osseous abnormality. Laboratory Results 11/02/16 02:20 Red Blood Count 3.88, Mean Corpuscular Volume 97.2, Mean Corpuscular Hemoglobin 32.2, Mean Corpuscular Hemoglobin Concent 33.2, Mean Platelet Volume 10.6, Neutrophils (%) (Auto) 57.9, Lymphocytes (%) (Auto) 28.8, Monocytes (%) (Auto) 10.5, Eosinophils (%) (Auto) 2.4, Basophils (%) (Auto) 0.2, Neutrophils # (Auto ) 5.50, Lymphocytes # (Auto) 2.74, Monocytes # (Auto) 1.00, Eosinophils # (Auto ) 0.23, Basophils # (Auto) 0.02 11/02/16 02:20 Test 11/02/16 02:20 11/02/16 02:55 11/02/16 04:55 11/02/16 05:02 White Blood Count 9.51 K/uL (4.8-10.8) Red Blood Count 3.88 M/uL (4.2-5.4) Hemoglobin 12.5 g/dL (12.0-16.0) Hematocrit 37.7 % (37-47) Mean Corpuscular Volume 97.2 fL (80-100) Mean Corpuscular Hemoglobin 32.2 pg (25-34) Mean Corpuscular Hemoglobin Concent 33.2 g/dl (32-36) Platelet Count 317 K/uL (130-400) Mean Platelet Volume 10.6 fL (7.4-10.4) Neutrophils (%) (Auto) 57.9 % Lymphocytes (%) (Auto) 28.8 % Monocytes (%) (Auto) 10.5 % Eosinophils (%) (Auto) 2.4 % Basophils (%) (Auto) 0.2 % Neutrophils # (Auto) 5.50 K/uL (1.4-6.5) Lymphocytes # (Auto) 2.74 K/uL (1.2-3.4) Monocytes # (Auto) 1.00 K/uL (0.11-0.59) Eosinophils # (Auto) 0.23 K/uL (0-0.5) Basophils # (Auto) 0.02 K/uL (0-0.2) RDW Standard Deviation 44.0 fL (36.4-46.3) RDW Coefficient of Variation 12.5 % (11.5-14.5) Immature Granulocyte % (Auto) 0.2 % Immature Granulocyte # (Auto) 0.02 K/uL (0.00-0.02) Anion Gap 10.0 mmol/L (3-11) Est Creatinine Clear Calc Drug Dose 42.8 ml/min Estimated GFR () 71.9 Estimated GFR (Non- 62.0 BUN/Creatinine Ratio 14.3 (10-20) Calcium Level 8.9 mg/dl (8.5-10.1) Total Bilirubin 0.5 mg/dl (0.2-1) Aspartate Amino Transf (AST/SGOT) 38 U/L (15-37) Alanine Aminotransferase (ALT/SGPT) 35 U/L (12-78) Alkaline Phosphatase 89 U/L (45-117) Troponin I < 0.015 ng/ml (0-0.045) Total Protein 7.5 gm/dl (6.4-8.2) Albumin 3.3 gm/dl (3.4-5.0) Globulin 4.2 gm/dl (2.5-4.0) Albumin/Globulin Ratio 0.8 (0.9-2) Lipase 89 U/L (73-393) Urine Color YELLOW Urine Appearance CLEAR (CLEAR) Urine pH 7.0 (4.5-7.5) Urine Specific [place] 1.018 (1.000-1.030) Urine Protein NEG (NEG) Urine Glucose (UA) NEG (NEG) Urine Ketones TRACE (NEG) Urine Occult Blood NEG (NEG) Urine Nitrite NEG (NEG) Urine Bilirubin NEG (NEG) Urine Urobilinogen NEG (NEG) Urine Leukocyte Esterase NEG (NEG) Prothrombin Time 12.6 SECONDS (9.0-12.0) Prothromb Time International Ratio 1.2 (0.9-1.1) Activated Partial Thromboplast Time 30.6 SECONDS (21.0-31.0) Partial Thromboplastin Ratio 1.2 Bedside Lactic Acid Venous 0.74 mmol/L (0.90-1.70) Laboratory results per my review. Medications Administered Medications (Trade) Dose Ordered Sig/Princess Route Start Time Stop Time Status Last Admin Dose Admin Hydromorphone HCl (Dilaudid Inj) 0.5 mg NOW STAT IV 11/02/16 02:34 11/02/16 02:38 DC 11/02/16 02:41 0.5 MG Procedure Medications Ordered: Dilaudid ECG Indication: abdominal pain Rate (beats per minute): 105 Rhythm: atrial fibrillation Findings: no acute ischemic change, no ectopy ED Course 0227: Past medical records reviewed. The patient was evaluated in room B12. A complete history and physical exam was performed. The patient was observing the cardiac monitor technician and pulse oximeter. A twelve-lead EKG was obtained. Labs were drawn as above. 0234: Ordered Dilaudid 0.5 mg IV. Patient went for an obstruction series as described above. 0350: I checked on the patient at this time. She is comfortable at this time. I discussed the results of the x-ray with her. She will go for CT scan of the abdomen/pelvis. 0443: I reevaluated the patient at this time. She is comfortable. 0459: I discussed the [facility] at [facility]. He will evaluate the patient for further treatment. Medical Decision The patient is an 81 year old female who presents to the Emergency Department for abdominal pain. Differential Diagnosis includes: Differential Diagnosis includes; Diverticulitis , perforated viscus, mesenteric ischemia, pancreatitis, constipation, small bowel, colonic obstruction. Laboratory results were reviewed and show: White count of 9.5, normal hemoglobin and hematocrit, normal renal function, normal LFTs, glucose of 117, Troponin was negative, lipase normal. Urinalysis shows trace ketones. This is an 81-year-old female patient presents to emergency department with diffuse abdominal pain. The patient was found to be in atrial fibrillation. She has no history of this. Although, she recently suffered a stroke. I considered the possibility of ischemic bowel. however, lactic acid was normal. The patient is resting comfortably after IV pain medication. She went for CT scan as described above. The patient will be evaluated by the [facility] Hospitalist for new onset A. fib and abdominal pain. Consults Time Called: 045 Consulting Physician: Dr. Zion Shields Returned Call: [phone] I discussed the case with Dr. Zion Shields at this time. He will evaluate the patient for further treatment. Impression Primary Impression: Diffuse abdominal pain Additional Impression: New onset a-fib Scribe Attestation The scribe's documentation has been prepared under my direction and personally reviewed by me in its entirety. I confirm that the note above accurately reflects all work, treatment, procedures, and medical decision making performed by me. Departure Information Dispostion Being Evaluated By Hospitalist Referrals José Vergara D.O. (PCP) Patient Instructions My [facility] Problem Qualifiers
[2016-11-02 02:44] LABS: BASO % 0.2 %; BASO ABS # 0.02 K/uL (0-0.2); COMPLETE YES; EOS % 2.4 %; HEMATOCRIT 37.7 % (37-47); IG% 0.2 %; LYMPH % 28.8 %; LYMPH ABS # 2.74 K/uL (1.2-3.4); MEAN CELL VOLUME 97.2 fL (80-100); MEAN CORPUSCULAR HEMOGLOBIN 32.2 pg (25-34); MEAN CORPUSCULAR HGB CONC 33.2 g/dl (32-36); MEAN PLATELET VOLUME 10.6 fL (7.4-10.4); MONO % 10.5 %; NEUT % 57.9 %; PLATELET COUNT 317 K/uL (130-400); RED BLOOD COUNT 3.88 M/uL (4.2-5.4); WHITE BLOOD COUNT 9.51 K/uL (4.8-10.8)
[2016-11-02 02:58] LABS: ALT/SGPT 35 U/L (12-78); AST/SGOT 38 U/L (15-37); BLOOD UREA NITROGEN 12 mg/dl (7-18); BUN/CREATININE RATIO 14.3 (10-20); CALCIUM 8.9 mg/dl (8.5-10.1); CARBON DIOXIDE 23 mmol/L (21-32); CHLORIDE 105 mmol/L (98-107); CREATININE 0.87 mg/dl (0.60-1.20); GLUCOSE 117 mg/dl (70-99); POTASSIUM 3.8 mmol/L (3.5-5.1); SODIUM 138 mmol/L (136-145)
[2016-11-02 03:02] LABS: ALB/GLOB RATIO 0.8 (0.9-2); ALKALINE PHOSPHATASE 89 U/L (45-117)
[2016-11-02 03:13] LABS: URINE APPEARANCE CLEAR (CLEAR); URINE BILIRUBIN NEG (NEG); URINE COLOR YELLOW; URINE NITRITE NEG (NEG); URINE SPECIFIC GRAVITY 1.018 (1.000-1.030); UROBILINOGEN NEG (NEG)
[2016-11-02 03:21] LABS: MANUAL MICROSCOPIC REQUIRED? NO; REVIEW REQ? NO
[2016-11-02] MEDS ORDERED: OPTIRAY 320 IV PRN (03:30)
[2016-11-02 05:25] LABS: INR 1.2 (0.9-1.1); PARTIAL THROMBOPLASTIN RATIO 1.2; PROTHROMBIN TIME (PATIENT) 12.6 SECONDS (9.0-12.0)
[2016-11-02] MEDS ORDERED: ACETAMINOPHEN 325 MG TAB PO PRN (05:45)
[2016-11-02] MEDS ORDERED: ALUMINUM/MAGNESIUM/SIMETH (MAALOX MAX) 30 ML UDC PO PRN (05:45)
[2016-11-02] MEDS ORDERED: POLYETHYLENE (MIRALAX) 17 GM PACK PO PRN (05:45)
[2016-11-02] MEDS ORDERED: MoRPHine SULFATE 2 MG/ML CARP IV PRN (05:45)
[2016-11-02] MEDS ORDERED: ONDANSETRON INJ 2 MG/ML 2 ML VIAL IV PRN (05:45)
[2016-11-02] MEDS ORDERED: MAGNESIUM HYDROXIDE SUSP 30 ML UDC PO PRN (05:45)
--- NOTE | 2016-11-02 06:02 | History and Physical ---
History & Physical Date & Time of Service: Nov 02, 2016 at 05:40 Chief Complaint: Abdominal Pain Primary Care Physician: José Vergara D.O. History of Present Illness Source: patient, clinic records, hospital records This is an 81 year old female with a PMH of L MCA infarct last month (September 2016) , HTN, LVH, hx. of diverticulitis - presents with acute abdominal pain; began around October 31 mid-day, with a sharp, diffuse pain that radiated to the L flank area. States that the pain never subsided; but would wax and wane. The pain persisted throughout the night and she called EMS at around 1:30AM. Upon presentation, she had a CT performed of the abdomen, but there were nonspecific findings. While monitored in the ER, she was incidentally found to be in atrial fibrillation, which is a new finding. She denies palpitations, chest pain or shortness of breath. No residual symptoms from the stroke. Abdominal pain improving after medications. Denies diarrhea, nausea/vomiting; fevers/chills - she had constipation last week, but did have a bowel movement prior to arrival ( November 01). Past Medical/Surgical History Medical Problems: (1) Anemia Nos Status: Chronic (2) Anterior epistaxis Status: Resolved (3) Chronic Sinusitis Nos Status: Chronic (4) Diverticulosis Colon (W/O Ment Of Hemorrhage) Status: Chronic (5) History of ischemic bowel disease Status: Chronic (6) Hypertension Nos Status: Chronic (7) Osteoporosis Status: Chronic (8) Rosacea Status: Chronic (9) Volvulus Of Intestine Status: Resolved Surgical Problems: (1) H/O exploratory laparotomy Permanent Comment: H/O Volvulus, adhesions and ischemic bowel/appendix Status: Chronic (2) H/O laminectomy Status: Chronic (3) H/O shoulder surgery Status: Chronic (4) Hx of cardiac cath Status: Chronic (5) Hx of tonsillectomy Status: Chronic (6) S/P ELEN-BSO Status: Chronic Family History Cancer Diabetes mellitus FH: heart disease Stroke BROTHER (in his 70s) Social History Smoking Status: Never Smoker Drug Use: none Housing status: lives alone Immunizations History of Influenza Vaccine: No History of Tetanus Vaccine?: Yes History of Pneumococcal: Yes History of Hepatitis B Vaccine: Unknown Multi-Drug Resistant Organisms History of MDRO: No Allergies Coded Allergies: Pneumococcal Vaccine (Verified Allergy, Mild, DIZZINESS AND FELT LOUSY, 11/02/16) Sulfa Antibiotics (Verified Allergy, Unknown, ., 11/02/16) Aspirin (Verified Adverse Reaction, Unknown, epistaxis, 11/02/16) Home Medications Scheduled Amlodipine (Norvasc), 5 MG PO DAILY Ascorbic Acid (Ascorbic Acid), 500 MG PO DAILY Atorvastatin (Lipitor), 80 MG PO DAILY Calcium Carbonate-Vitamin D W/ (Caltrate 600 Plus), 1 TAB PO BID Clonidine Hcl (Catapres), 0.2 MG PO BID Clopidogrel (Plavix), 75 MG PO DAILY Denosumab (Prolia), 1 ML SQ [id number] Lisinopril (Zestril), 20 MG PO BID Metoprolol Tartrate (Lopressor) (Lopressor), 75 MG PO BID Metronidazole (Topical) (Metrogel), 1 APPLN TD BID Multivitamin (Multivitamin), 1 TAB PO DAILY Review of Systems Constitutional: No fever, No chills, No weakness, No fatigue Eyes: No worsening of vision ENT: No hearing loss Respiratory: No cough, No sputum, No shortness of breath, No dyspnea on exertion, No dyspnea at rest Cardiovascular: No chest pain, No edema, No palpitations Abdomen: + pain, + constipation, No nausea, No vomiting, No diarrhea, No GI bleeding Musculoskeletal: No joint pain, No muscle pain Genitourinary - Female: + urinary retention (had urinary retention, now improved), No dysuria, No urinary frequency, No urinary urgency, No urinary incontinence, No hematuria Neurologic: No memory loss Psychiatric: No depression symptoms, No anxiety Endocrine: No fatigue Hematologic / Lymphatic: No abnormal bleeding/bruising Integumentary: No rash Allergic / Immunologic: No environmental allergies, No seasonal allergies Physical Exam Vital Signs Date Time Temp Pulse Resp B/P (MAP) Pulse Ox O2 Delivery O2 Flow Rate FiO2 11/02/16 05:06 92 11/02/16 03:40 97 16 126/90 94 Room Air 11/02/16 02:00 122 11/02/16 01:57 36.6 96 29 141/107 99 Room Air General Appearance: + mild distress (secondary to pain) Head: normocephalic, atraumatic ENT: hearing grossly normal Respiratory/Chest: lungs clear, normal breath sounds, no respiratory distress, no accessory muscle use Cardiovascular: no edema, no murmur, + irregularly irregular Abdomen/GI: + tenderness (diffusely to mild palpation), + abnormal bowel sounds (decreased bowel sounds), + distended Extremities/Musculoskelatal: no calf tenderness, normal capillary refill, no pedal edema Neurologic/Psych: scientist immunology II-XII nml as tested, no motor/sensory deficits, alert, normal mood/affect, oriented x 3 Skin: normal color Lymphatic: no adenopathy Diagnostics Laboratory Results Results Past 24 Hours Test 11/02/16 02:20 11/02/16 02:55 11/02/16 04:55 11/02/16 05:02 Range/Units White Blood Count 9.51 4.8-10.8 K/uL Red Blood Count 3.88 4.2-5.4 M/uL Hemoglobin 12.5 12.0-16.0 g/dL Hematocrit 37.7 37-47 % Mean Corpuscular Volume 97.2 80-100 fL Mean Corpuscular Hemoglobin 32.2 25-34 pg Mean Corpuscular Hemoglobin Concent 33.2 32-36 g/dl Platelet Count 317 130-400 K/uL Mean Platelet Volume 10.6 7.4-10.4 fL Neutrophils (%) (Auto) 57.9 % Lymphocytes (%) (Auto) 28.8 % Monocytes (%) (Auto) 10.5 % Eosinophils (%) (Auto) 2.4 % Basophils (%) (Auto) 0.2 % Neutrophils # (Auto) 5.50 1.4-6.5 K/uL Lymphocytes # (Auto) 2.74 1.2-3.4 K/uL Monocytes # (Auto) 1.00 0.11-0.59 K/uL Eosinophils # (Auto) 0.23 0-0.5 K/uL Basophils # (Auto) 0.02 0-0.2 K/uL RDW Standard Deviation 44.0 36.4-46.3 fL RDW Coefficient of Variation 12.5 11.5-14.5 % Immature Granulocyte % (Auto) 0.2 % Immature Granulocyte # (Auto) 0.02 0.00-0.02 K/uL Sodium Level 138 136-145 mmol/L Potassium Level 3.8 3.5-5.1 mmol/L Chloride Level 105 98-107 mmol/L Carbon Dioxide Level 23 21-32 mmol/L Anion Gap 10.0 3-11 mmol/L Blood Urea Nitrogen 12 7-18 mg/dl Creatinine 0.87 0.60-1.20 mg/dl Est Creatinine Clear Calc Drug Dose 42.8 ml/min Estimated GFR () 71.9 Estimated GFR (Non- 62.0 BUN/Creatinine Ratio 14.3 10-20 Random Glucose 117 70-99 mg/dl Calcium Level 8.9 8.5-10.1 mg/dl Total Bilirubin 0.5 0.2-1 mg/dl Aspartate Amino Transf (AST/SGOT) 38 15-37 U/L Alanine Aminotransferase (ALT/SGPT) 35 12-78 U/L Alkaline Phosphatase 89 45-117 U/L Troponin I < 0.015 0-0.045 ng/ml Total Protein 7.5 6.4-8.2 gm/dl Albumin 3.3 3.4-5.0 gm/dl Globulin 4.2 2.5-4.0 gm/dl Albumin/Globulin Ratio 0.8 0.9-2 Lipase 89 73-393 U/L Urine Color YELLOW Urine Appearance CLEAR CLEAR Urine pH 7.0 4.5-7.5 Urine Specific [place] 1.018 1.000-1.030 Urine Protein NEG NEG Urine Glucose (UA) NEG NEG Urine Ketones TRACE NEG Urine Occult Blood NEG NEG Urine Nitrite NEG NEG Urine Bilirubin NEG NEG Urine Urobilinogen NEG NEG Urine Leukocyte Esterase NEG NEG Prothrombin Time 12.6 9.0-12.0 SECONDS Prothromb Time International Ratio 1.2 0.9-1.1 Activated Partial Thromboplast Time 30.6 21.0-31.0 SECONDS Partial Thromboplastin Ratio 1.2 Bedside Lactic Acid Venous 0.74 0.90-1.70 mmol/L Diagnostic Radiology CT ABDOMEN & PELVIS: Impression: Noninflamed colon diverticulosis. Apparent bowel wall thickening of the descending and sigmoid colon which may be secondary to under distention and less likely a nonspecific colitis. Additional findings: Coarse reticular opacities seen in the lower lungs likely chronic interstitial lung disease. The liver, spleen, pancreas, and gland are unremarkable. The gallbladder is unremarkable. Simple cysts within the right kidney. Otherwise the kidneys and ureters are unremarkable. Circumferential thickening of the urinary bladder with with adjacent stranding which may be secondary to underdistention. Correlation with urinalysis to exclude cystitis. The uterus is surgically absent. NO adnexal masses. The appendix is not visualized and may be diminutive versus surgically absent. No acute osseous abnormality. EKG Sinus tachycardia with short IA Impression Assessment and Plan This is an 81 year old female with a PMH of L MCA infarct last month (September 2016) , HTN, LVH, hx. of diverticulitis - presents with acute abdominal pain and incidentally found to have new onset atrial fibrillation New Onset A. Fib irregularly irregular rhythm noted on tele monitoring will admit to tele recent CVA, likely due to arrhythmia started on IV heparin cardiology consulted monitor in tele Lopressor increased to 100mg BID repeat EKG in AM Acute Abdominal Pain nonspecific colitis noted on CT due to new onset A. Fib, concern for mesenteric ischemia will check CTA abdomen/pelvis Hx. of L MCA infarct was at [facility] due to infarct in September 2016 likely due to arrhythmia (new onset A. Fib) no aspirin continue Plavix for now, continue statin will need to discuss Plavix due to starting anticoagulation for A. Fib DVT ppx IV heparin FULL CODE VTE Prophylaxis VTE Risk Assessment Done? Y/N: Yes Risk Level: High Given or contraindicated: Other Anticoagulation
[2016-11-02] MEDS ORDERED: HEPARIN 25000 UNIT/500 ML D5W ONE (06:31)
[2016-11-02] MEDS ORDERED: HEPARIN SOD 5000 UNIT/0.5 ML CARP ONE (06:31)
--- NOTE | 2016-11-02 06:36 | DIAGNOSTIC IMAGING REPORT ---
ABD/PELVIS IV CONTRAST ONLY HISTORY: 81-year-old female presents with diffuse abdominal pain with concern for bowel obstruction. COMPARISON: Acute abdominal series radiographs of same day, CT abdomen and pelvis 01/26/2006 TECHNIQUE: Multiple axial CT images of the abdomen and pelvis were obtained following the intravenous administration of 93 mL Optiray 320. FINDINGS: The inferior cardiac chambers are mildly enlarged. Coarse calcifications involving the mitral annulus and aortic annulus. Coarsened reticular markings at the level of the lung bases have progressed from the prior study dated 01/26/2006. There is a small right Bochdalek hernia. There is no gross pneumoperitoneum. There is a moderate amount of periportal edema which is likely related to hydration status. Liver otherwise appears to be within normal limits. The spleen and adrenal glands are within normal limits. There is moderate pancreatic atrophy. Gallbladder appears unremarkable. 1.2 x 1.8 cm low attenuating lesion of the superior pole right kidney suggests cyst. No renal calculi or hydronephrosis identified. There is moderate atherosclerotic plaquing of the abdominal aorta and branch vasculature. 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 There is a small sliding-type hiatal hernia. No dilated loops of small bowel are seen to suggest bowel obstruction. Noninflamed colonic diverticula are present throughout. No evidence of acute diverticulitis. There is moderate volume of formed colonic stool throughout. There is a bladder is collapsed with circumferential wall thickening. Prior hysterectomy. Soft tissues are within normal limits. Bones are demineralized with multilevel discogenic degenerative changes. IMPRESSION: 1. No acute intra-abdominal or intrapelvic abnormality. No evidence of bowel obstruction. 2. Colonic diverticulosis without diverticulitis. 3. Moderate volume of formed colonic stool may reflect constipation within the appropriate clinical setting. 4. Circumferential wall thickening of the urinary bladder may be secondary to under distention. Correlate with urinalysis to exclude cystitis. 5. Additional incidental findings as above. Electronically signed by: Isaiah Hines 11/02/2016 6:34 AM Dictated Date/Time: 11/02/2016 6:25 AM
[2016-11-02] MEDS: SODIUM CHLORIDE 0.9% 1000ML 1,000 ML IV SCH ×2 (07:37→18:39)
--- NOTE | 2016-11-02 07:43 | DIAGNOSTIC IMAGING REPORT ---
ABDOMEN 2VIEW W/PA CHEST RTN CLINICAL HISTORY: 81 years-old Female presenting with eval for perf. viscous. TECHNIQUE: PA view of the chest and supine and upright views of the abdomen were performed. COMPARISON: Correlation made to CT performed the same day and chest x-ray from 10/09/2016. FINDINGS: Cardiomediastinal silhouette normal. Diffuse basilar predominant reticular opacities are again apparent, grossly similar to the prior exam. No new infiltrate. No large effusion or pneumothorax. Partially visualized plate and screw fixation of the right humeral head and proximal metaphysis. No evidence of free intraperitoneal gas below the diaphragm. Moderate stool burden noted in the right colon. No evidence of free intraperitoneal gas. No gross evidence of pneumatosis or portal venous gas. Degenerative changes of the lumbar spine. IMPRESSION: 1. No evidence of free intraperitoneal gas. 2. Basilar predominant reticular opacities in the lungs may represent fibrosis, unchanged. Electronically signed by: Valente Corrales 11/02/2016 7:42 AM Dictated Date/Time: 11/02/2016 7:31 AM
[2016-11-02] MEDS: DOCUSATE SODIUM 100 MG CAP PO SCH ×2 (08:32→21:00)
[2016-11-02] MEDS: ATORVASTATIN 40 MG TAB PO SCH (08:33)
[2016-11-02] MEDS: AMLODIPINE BESYLATE 5 MG TAB PO SCH (08:33)
[2016-11-02] MEDS: LISINOPRIL 20 MG TAB PO SCH ×2 (08:33→21:47)
[2016-11-02] MEDS: METOPROLOL TARTRATE 100 MG TAB PO SCH ×2 (08:33→21:46)
[2016-11-02] MEDS: CLONIDINE HCL 0.1 MG TAB PO SCH ×2 (08:34→21:46)
[2016-11-02] MEDS ORDERED: CLOPIDOGREL BISULFATE 75 MG TAB PO SCH (09:00)
--- NOTE | 2016-11-02 09:59 | Cardiology Consultation ---
Cardiology Consultation Date of Consultation: Nov 02, 2016 Requesting Physician: Dr. Donovan Attending Game Room Attendant: Dr. Garcia (Fina Chavira PA-C) History of Present Illness Patient is a 81 year old female with past medical history significant for hypertension, diverticulitis, chronic mild anemia, recent Left MCA infarct in September 2016 without residual focal defects, echo at that time demonstrating preserved LV function, moderately dilated left atrium, with moderate to severe mitral calcification and moderate aortic sclerosis without stenosis. She was started on Plavix by neurology with plans for outpatient health counselor. ASA discussed. Listed as "allergy" but patient states this is due to history of 2 nosebleeds > 10 years ago, without recurrence. Patient denies history of cardiovascular issues including AR, CHF, valvular heart disease. She notes history of murmur as a child. There was mention in her chart of prior cardiac catheterization, but patient denies this procedure and no records found. She notes history of "arrhythmia" many years ago, but is unsure of details. She came to ER yesterday with complaints of abdominal pain. No specific etiology found per CT scan. Symptoms resolved. Incidentally found to be in atrial fibrillation with mildly elevated ventricular rates on EKG. She was asymptomatic. She was started on IV heparin and metoprolol tartrate increased to 100 mg BID for rate control. Duration unknown of afib. She was in NSR during most recent admission. At time of consult, patient feeling well. Abdominal pain resolved. No symptoms of palpitations, tachypalpitations, dizziness, syncope or near syncope. No chest pain or SOB. No orthopnea, PND or edema. No fever, cough, chills. 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 Head: The patient denies headache and prior head trauma. Cardiovascular: The patient denies chest pain or chest discomfort, dyspnea on exertion, palpitations, PND, orthopnea, edema, spontaneous shortness of breath, syncope and near syncope. Pulmonary: The patient denies cough, wheeze, pleurisy, hemoptysis, sputum, and excessive snoring. Gastrointestinal: The patient denies nausea, vomiting, diarrhea, constipation, bloating, hematemesis, hematochezia, and abdominal pain. Skin: The patient denies diaphoresis and rash. Musculoskeletal: The patient denies joint pain, joint swelling, myalgia, back pain, neck pain and prior injuries. Neurological: The patient denies prior stroke and seizures (Fina Chavira PA-C) Allergies Coded Allergies: Pneumococcal Vaccine (Verified Allergy, Mild, DIZZINESS AND FELT LOUSY, 11/02/16) Sulfa Antibiotics (Verified Allergy, Unknown, ., 11/02/16) Aspirin (Verified Adverse Reaction, Unknown, epistaxis, 11/02/16) Medications Reported Home Medications Medications Dose Route/Sig Max Daily Dose Days Date Category Plavix (Clopidogrel Bisulfate) 75 Mg Tab 75 Mg PO DAILY 11/02/16 Reported Caltrate 600 Plus (Calcium Carbonate-Vitamin D W/) 1 Tab Tab 1 Tab PO BID 11/02/16 Reported Lipitor (Atorvastatin Calcium) 80 Mg Tab 80 Mg PO DAILY 11/02/16 Reported Metrogel (Metronidazole (Topical)) 0.75 % Gel 1 Appln TD BID 11/02/16 Reported Prolia (Denosumab) 60 Mg/Ml Connie 1 Ml SQ [id number] 10/09/16 Reported Ascorbic Acid 500 Mg Tab 500 Mg PO DAILY 10/09/16 Reported Multivitamin (Multivitamins) Tab 1 Tab PO DAILY 10/09/16 Reported Norvasc (Amlodipine Besylate) 5 Mg Tab 5 Mg PO DAILY 10/09/16 Reported Catapres (Clonidine Hcl) 0.2 Mg Tab 0.2 Mg PO BID 08/25/15 Reported Lopressor (Metoprolol Tartrate) 50 Mg Tab 75 Mg PO BID 11/18/09 Reported Zestril (Lisinopril) 20 Mg Tab 20 Mg PO BID 11/18/09 Reported (Fina Chavira PA-C) Physical Exam Vital Signs (Last 8hrs): Last 8 Hrs Date Time Temp Pulse Resp B/P (MAP) Pulse Ox O2 Delivery O2 Flow Rate FiO2 11/02/16 07:45 36.6 75 16 124/62 (82) 99 11/02/16 07:41 36.6 18 120/87 Room Air 11/02/16 06:19 100 18 120/87 95 Room Air 11/02/16 05:06 92 11/02/16 03:40 97 16 126/90 94 Room Air 11/02/16 02:00 122 11/02/16 01:57 36.6 96 29 141/107 99 Room Air General Appearance: Alert and Oriented x3. NAD. Head: Normocephalic Atraumatic. Eyes: PERRLA, EOMI, conjunctiva and sclera clear Neck: Supple. No carotid bruits noted. No JVD. No HJD. Respiratory: Breath sounds clear to auscultation bilaterally. No w/r/r. Cardiovascular: Irregularly irregular. Soft systolic murmur noted LSB I/. No murmurs, rubs, gallops. PMI non displace. Abdomen: Normal bowel sounds, soft nontender. no abdominal bruits. Extremities: No edema, no clubbing or cyanosis. distal pulses 2/4 bilaterally. Neuro: No focal deficits. Psychiatric: Normal affect. (Fina Chavira PA-C) Data Last 24 Hours Test 11/02/16 02:20 11/02/16 02:55 11/02/16 04:55 11/02/16 05:02 White Blood Count 9.51 K/uL Red Blood Count 3.88 M/uL Hemoglobin 12.5 g/dL Hematocrit 37.7 % Mean Corpuscular Volume 97.2 fL Mean Corpuscular Hemoglobin 32.2 pg Mean Corpuscular Hemoglobin Concent 33.2 g/dl Platelet Count 317 K/uL Mean Platelet Volume 10.6 fL Neutrophils (%) (Auto) 57.9 % Lymphocytes (%) (Auto) 28.8 % Monocytes (%) (Auto) 10.5 % Eosinophils (%) (Auto) 2.4 % Basophils (%) (Auto) 0.2 % Neutrophils # (Auto) 5.50 K/uL Lymphocytes # (Auto) 2.74 K/uL Monocytes # (Auto) 1.00 K/uL Eosinophils # (Auto) 0.23 K/uL Basophils # (Auto) 0.02 K/uL RDW Standard Deviation 44.0 fL RDW Coefficient of Variation 12.5 % Immature Granulocyte % (Auto) 0.2 % Immature Granulocyte # (Auto) 0.02 K/uL Sodium Level 138 mmol/L Potassium Level 3.8 mmol/L Chloride Level 105 mmol/L Carbon Dioxide Level 23 mmol/L Anion Gap 10.0 mmol/L Blood Urea Nitrogen 12 mg/dl Creatinine 0.87 mg/dl Est Creatinine Clear Calc Drug Dose 42.8 ml/min Estimated GFR () 71.9 Estimated GFR (Non- 62.0 BUN/Creatinine Ratio 14.3 Random Glucose 117 mg/dl Calcium Level 8.9 mg/dl Total Bilirubin 0.5 mg/dl Aspartate Amino Transf (AST/SGOT) 38 U/L Alanine Aminotransferase (ALT/SGPT) 35 U/L Alkaline Phosphatase 89 U/L Troponin I < 0.015 ng/ml Total Protein 7.5 gm/dl Albumin 3.3 gm/dl Globulin 4.2 gm/dl Albumin/Globulin Ratio 0.8 Lipase 89 U/L Urine Color YELLOW Urine Appearance CLEAR Urine pH 7.0 Urine Specific Hepler 1.018 Urine Protein NEG Urine Glucose (UA) NEG Urine Ketones TRACE Urine Occult Blood NEG Urine Nitrite NEG Urine Bilirubin NEG Urine Urobilinogen NEG Urine Leukocyte Esterase NEG Prothrombin Time 12.6 SECONDS Prothromb Time International Ratio 1.2 Activated Partial Thromboplast Time 30.6 SECONDS Partial Thromboplastin Ratio 1.2 Bedside Lactic Acid Venous 0.74 mmol/L Imaging: Abd/Pelvic CT: IMPRESSION: 1. No acute intra-abdominal or intrapelvic abnormality. No evidence of bowel obstruction. 2. Colonic diverticulosis without diverticulitis. 3. Moderate volume of formed colonic stool may reflect constipation within the appropriate clinical setting. 4. Circumferential wall thickening of the urinary bladder may be secondary to under distention. Correlate with urinalysis to exclude cystitis. 5. Additional incidental findings as above Chest/Abdomen XRay - IMPRESSION: 1. No evidence of free intraperitoneal gas. 2. Basilar predominant reticular opacities in the lungs may represent fibrosis , unchanged. Prior Data: Echocardiogram completed 10/10/16 at [facility]: -- Conclusions -- The left ventricle is normal in size. There is moderate concentric left ventricular hypertrophy. The left ventricular wall motion is normal. Ejection Fraction = 55-60%. Aortic valve sclerosis moderate, without significant aortic valvular stenosis. Trace aortic regurgitation. There is moderate to severe mitral annular calcification. There is trace mitral regurgitation. There is trace tricuspid regurgitation. Right ventricular systolic pressure is elevated at 30-40mmHg. The interatrial septum is intact with no evidence for an atrial septal defect. Injection of contrast documented no interatrial shunt. The left atrium is moderately dilated. EKG on admission, per my review: Atrial fib/flutter with elevated ventricular rates at 105 bpm. Telemetry reviewed: Atrial fibrillation with relatively well controlled ventricular rate ranging 70-100 bpm. (Fina Chavira PA-C) Assessment & Plan ASSESSMENT: 1. New onset atrial fibrillation, with mildly elevated ventricular rates - asymptomatic 2. Recent Left sided MCA infarct September 2015 3. Hypertension 4. Abdominal pain - resolved PLAN: Pathophysiology and treatment options of atrial fibrillation discussed with patient. Duration unknown. She was in NSR during October 10, 2016 admission for CVA. Continue IV heparin and transition to Coumadin for goal INR of 2-3. Stop Plavix and start ASA 81 mg daily. (Allergy to aspirin noted and discussed with patient. Not true allergy, she had 2 nosebleeds > 10 years ago and was told not to take Aspirin products at that time after cauterization.) No need for repeat echo at this time, last one dated 10/10/16 Agree with increasing metoprolol. Rate controlled on metoprolol tartrate 100 mg BID. Case discussed with Dr. Garcia. Will follow as hospital course progresses. (Fina Chavira PA-C) CARDIOLOGY ATTENDING ADDENDUM: The patient was seen and personally examined. Agree with Fina Chavira PA-C's findings and plans as documented above. CVA a month ago may have been related to Atrial Fib. Doesn't seem likely at this time that abdomen pain related to embolic event to gut. Agree with plan as outlined. (Tony Garcia, DO)
[2016-11-02] MEDS ORDERED: MAGNESIUM OXIDE 400 MG TAB PO ONE (11:00)
[2016-11-02 12:56] LABS: PARTIAL THROMBOPLASTIN RATIO 3.4
[2016-11-02] MEDS ORDERED: WARFARIN SOD 5 MG TAB PO SCH (16:00)
--- NOTE | 2016-11-02 17:44 | Progress Note ---
Internal Med Progress Note Date of Service: Nov 02, 2016. Provider Documentation: SUBJECTIVE: Patient is lying comfortably in the bed and does not seem to be any acute distress. Abdominal pain in improving. Denies any chest pain/pressure. No palpitations reported. OBJECTIVE: Vital Signs-as noted below Examination: General Appearance: Alert and Oriented x3. NAD. Head: Normocephalic Atraumatic. Eyes: PERRLA, EOMI, conjunctiva and sclera clear Neck: Supple. No carotid bruits noted. No JVD. No HJD. Respiratory: Breath sounds clear to auscultation bilaterally. No w/r/r. Cardiovascular: Irregularly irregular. Soft systolic murmur noted LSB I/. No murmurs, rubs, gallops. PMI non displace. Abdomen: Normal bowel sounds, soft nontender. no abdominal bruits. Extremities: No edema, no clubbing or cyanosis. distal pulses 2/4 bilaterally. Neuro: No focal deficits. Psychiatric: Normal affect. Lab data as noted below. ASSESSMENT & PLAN: CT ABDOMEN & PELVIS: Impression: Noninflamed colon diverticulosis. Apparent bowel wall thickening of the descending and sigmoid colon which may be secondary to under distention and less likely a nonspecific colitis. Additional findings: Coarse reticular opacities seen in the lower lungs likely chronic interstitial lung disease. The liver, spleen, pancreas, and gland are unremarkable. The gallbladder is unremarkable. Simple cysts within the right kidney. Otherwise the kidneys and ureters are unremarkable. Circumferential thickening of the urinary bladder with with adjacent stranding which may be secondary to underdistention. Correlation with urinalysis to exclude cystitis. The uterus is surgically absent. NO adnexal masses. The appendix is not visualized and may be diminutive versus surgically absent. No acute osseous abnormality. CTA Abdomen IMPRESSION: 1. No acute abdominal or pelvic findings 2. Extensive diverticulosis. No evidence of acute peridiverticular inflammatory change 3. No evidence of bowel obstruction. No evidence of free air 4. No evidence of celiac, superior mesenteric, or renal artery stenosis. 81 year old female with a PMH of L MCA infarct last month (September 2016), HTN, LVH , hx. of diverticulitis - presents with acute abdominal pain and incidentally found to have new onset atrial fibrillation New Onset Atrial Fibrillation: irregularly irregular rhythm noted on tele monitoring. Hemodynamically stable. Recent CVA, likely due to arrhythmia -Continue IV heparin -Cardiology consulted. Thanks for input. -Lopressor increased to 100mg BID -Repeat EKG in AM -Started Coumadin and will follow INR. Acute Abdominal Pain: Resolving now. Nonspecific colitis noted on CT Due to new onset A. Fib, concern for mesenteric ischemia -Reviewed CTA abdomen/pelvis which does not show any Hx. of Left MCA infarct: Stable. Was at [facility] due to infarct in September 2016 Likely due to arrhythmia (new onset A. Fib) -No aspirin -Continue Plavix for now, continue statin -Will need to discuss Plavix due to starting anticoagulation for A. Fib DVT Prophylaxis: I/V Heparin. Code Status: FULL CODE Disposition: Discharge once is clinically stable. Vital Signs: Date Time Temp Pulse Resp B/P (MAP) Pulse Ox O2 Delivery O2 Flow Rate FiO2 11/03/16 07:45 Room Air 11/03/16 07:05 36.5 93 16 137/80 (99) 97 Room Air 11/03/16 04:08 36.7 108 16 128/84 (99) 98 Room Air 11/03/16 04:00 Room Air 11/03/16 00:00 Room Air 11/02/16 23:07 36.8 60 16 106/79 (88) 95 Room Air 11/02/16 21:52 71 154/90 (111) 11/02/16 20:00 97 Room Air 11/02/16 19:26 36.6 66 16 134/89 (104) 97 Room Air 11/02/16 16:00 71 154/90 (111) 11/02/16 16:00 97 Room Air 11/02/16 15:39 36.6 99 16 109/75 (86) 97 Room Air 11/02/16 11:56 36.5 95 16 130/81 (97) 93 Room Air 11/02/16 11:43 Room Air Lab Results: Results Past 24 Hours Test 11/02/16 12:11 11/02/16 19:28 11/03/16 05:23 Range/Units Activated Partial Thromboplast Time 89.1 59.2 57.2 21.0-31.0 SECONDS Partial Thromboplastin Ratio 3.4 2.3 2.2 Prothrombin Time 12.2 9.0-12.0 SECONDS Prothromb Time International Ratio 1.1 0.9-1.1 Sodium Level 140 136-145 mmol/L Potassium Level 3.8 3.5-5.1 mmol/L Chloride Level 108 98-107 mmol/L Carbon Dioxide Level 24 21-32 mmol/L Anion Gap 8.0 3-11 mmol/L Blood Urea Nitrogen 6 7-18 mg/dl Creatinine 0.81 0.60-1.20 mg/dl Est Creatinine Clear Calc Drug Dose 42.4 ml/min Estimated GFR () 78.4 Estimated GFR (Non- 67.6 BUN/Creatinine Ratio 7.0 10-20 Random Glucose 113 70-99 mg/dl Calcium Level 8.5 8.5-10.1 mg/dl Magnesium Level 1.8 1.8-2.4 mg/dl
[2016-11-02 20:16] LABS: PARTIAL THROMBOPLASTIN RATIO 2.3
--- NOTE | 2016-11-02 22:30 | DIAGNOSTIC IMAGING REPORT ---
CT ANGIO ABD/PELVIS WITH CONTRAST CT DOSE: 269.13 mGy.cm CLINICAL HISTORY: Abdominal pain. Suspected ischemic bowel. TECHNIQUE: The patient was scanned in a dynamic helical fashion during intravenous administration 116 cc of Optiray 320. MIP imaging was performed COMPARISON STUDY: 11/02/2016 FINDINGS: Visualized portions the lung bases reveal subpleural reticulation suggestive of underlying interstitial lung disease. No hepatic masses are visualized on this arterial phase study. No gallbladder calculi are visualized. No splenic masses are visualized. No pancreatic masses are visualized. There is extensive colonic diverticulosis. There are no acute peridiverticular inflammatory changes. There is mild to moderate fecal retention. There is a small hiatal hernia. There is no evidence of pathologic adenopathy. There is a stable 18 mm right-sided retrocrural cystic structure doubtful acute clinical significance. There is small fat-containing inguinal hernias. There is no evidence of abdominal aortic aneurysm. There is no evidence of iliac artery aneurysm. There is no evidence of iliac artery stenosis. The inferior mesenteric artery is patent. There is an accessory right renal artery. There is no evidence of renal artery stenosis. The superior mesenteric and celiac axis arise from a common trunk. There is no evidence of celiac or superior mesenteric artery stenosis. There is a small fat-containing ventral hernia. There is a 17 mm upper pole right renal cyst. IMPRESSION: 1. No acute abdominal or pelvic findings 2. Extensive diverticulosis. No evidence of acute peridiverticular inflammatory change 3. No evidence of bowel obstruction. No evidence of free air 4. No evidence of celiac, superior mesenteric, or renal artery stenosis. Electronically signed by: Sincere Watkins M.D. 11/02/2016 10:29 PM Dictated Date/Time: 11/02/2016 10:21 PM
[2016-11-03] VITALS (7 sets, daily range): BP systolic 98–137; BP diastolic 64–105; PULSE 80–108; TEMP 36.4–36.7; O2SAT 95–99
[2016-11-03 06:17] LABS: INR 1.1 (0.9-1.1); PARTIAL THROMBOPLASTIN RATIO 2.2; PROTHROMBIN TIME (PATIENT) 12.2 SECONDS (9.0-12.0)
[2016-11-03 06:35] LABS: CALCIUM 8.5 mg/dl (8.5-10.1); CREATININE 0.81 mg/dl (0.60-1.20); MAGNESIUM 1.8 mg/dl (1.8-2.4); POTASSIUM 3.8 mmol/L (3.5-5.1)
[2016-11-03] MEDS: ASPIRIN 81 MG ECTAB PO SCH (09:03)
[2016-11-03] MEDS: ATORVASTATIN 40 MG TAB PO SCH (09:04)
[2016-11-03] MEDS: AMLODIPINE BESYLATE 5 MG TAB PO SCH (09:04)
[2016-11-03] MEDS: DOCUSATE SODIUM 100 MG CAP PO SCH ×2 (09:04→20:40)
[2016-11-03] MEDS: CLONIDINE HCL 0.1 MG TAB PO SCH ×2 (09:04→20:41)
[2016-11-03] MEDS: MAGNESIUM OXIDE 400 MG TAB PO SCH (09:05)
[2016-11-03] MEDS: LISINOPRIL 20 MG TAB PO SCH ×2 (09:05→20:40)
[2016-11-03] MEDS: METOPROLOL TARTRATE 100 MG TAB PO SCH ×2 (09:05→20:39)
--- NOTE | 2016-11-03 10:54 | Cardiology Follow-Up ---
Subjective General Date of Service: Nov 03, 2016. Chief Complaint: afib Pt evaluation today including: conversation w/ patient, physical exam, chart review, lab review, review of studies, review of inpatient medication list History of Present Illness Patient feeling ok. Notes continued abdominal bloating. No significant pain. No recent BM. Denies symptoms of palpitations or tachypalpitations. No chest pain or SOB. Anxious to go home. Allergies Coded Allergies: Pneumococcal Vaccine (Verified Allergy, Mild, DIZZINESS AND FELT LOUSY, 11/02/16) Sulfa Antibiotics (Verified Allergy, Unknown, ., 11/02/16) Aspirin (Verified Adverse Reaction, Unknown, epistaxis, 11/02/16) Social History Smoking Status: Never Smoker Hx Tobacco Use In Past Year?: No Hx Alcohol Use - Type And Amou: Yes (wine) Hx Substance Use - Type And Am: No Problem List Medical Problems: (1) Diffuse abdominal pain Status: Acute (2) Facial droop Status: Acute (3) Hypertension Status: Acute (4) Intractable pain Status: Acute (5) New onset a-fib Status: Acute (6) Right shoulder pain Status: Acute (7) Shoulder subluxation, right Status: Acute (8) Weakness Status: Acute Review of Systems Respiratory: No cough, No sputum, No wheezing, No shortness of breath, No dyspnea on exertion, No dyspnea at rest, No hemoptysis Cardiac: No chest pain, No orthopnea, No PND, No edema, No palpitations Physical Exam Vital Signs Last Vital Signs Documentation Date Time Temp Pulse Resp B/P (MAP) Pulse Ox O2 Delivery O2 Flow Rate FiO2 11/03/16 07:45 Room Air 11/03/16 07:05 36.5 93 16 137/80 (99) 97 Physical Exam Constitutional: General Apperance: heathly-appearing Level of Distress: NAD Psychiatric: Mental Status: active & alert Orientation: to time, to place, to person Head: normocephalic, atraumatic Eyes: Pupils: PERRLA Neck: supple Lungs: Respiratory effort: no dyspnea Auscultation: no wheezing, no rales/crackles, no rhonchi Cardiovascular: Heart Auscultation: normal S1, normal S2, no murmurs, irregular rate rhythm Abdomen: Bowel Sounds: normal Inspection & Palpation: no tenderness, guarding & rebound, distended Extremities: no edema Assessment and Plan Assessment and Plan ASSESSMENT: 1. New onset atrial fibrillation, with mildly elevated ventricular rates - asymptomatic 2. Recent Left sided MCA infarct September 2015 3. Hypertension 4. Abdominal pain/distention - ? secondary to constipation. PLAN: Pathophysiology and treatment options of atrial fibrillation discussed with patient. Duration unknown. She was in NSR during October 10, 2016 admission for CVA. Continue IV heparin and transition to Coumadin for goal INR of 2-3. Continue Coumadin and repeat PT/INR in AM. Stop Plavix and ASA 81 mg daily initiated. (Allergy to aspirin noted and discussed with patient. Not true allergy, she had 2 nosebleeds > 10 years ago and was told not to take Aspirin products at that time after cauterization.) No need for repeat echo at this time, last one dated 10/10/16 Rate relatively well controlled on metoprolol tartrate 100 mg BID. If needed, can add Digoxin Case discussed with Dr. Garcia. Will follow as hospital course progresses. CARDIOLOGY ATTENDING ADDENDUM: The patient was seen and personally examined. Agree with Fina Chavira PA-C's findings and plans as documented above. Anticipate home when INR therapeutic Laboratory Results Last 24 Hours Test 11/02/16 12:11 11/02/16 19:28 11/03/16 05:23 Activated Partial Thromboplast Time 89.1 SECONDS 59.2 SECONDS 57.2 SECONDS Partial Thromboplastin Ratio 3.4 2.3 2.2 Prothrombin Time 12.2 SECONDS Prothromb Time International Ratio 1.1 Sodium Level 140 mmol/L Potassium Level 3.8 mmol/L Chloride Level 108 mmol/L Carbon Dioxide Level 24 mmol/L Anion Gap 8.0 mmol/L Blood Urea Nitrogen 6 mg/dl Creatinine 0.81 mg/dl Est Creatinine Clear Calc Drug Dose 42.4 ml/min Estimated GFR () 78.4 Estimated GFR (Non- 67.6 BUN/Creatinine Ratio 7.0 Random Glucose 113 mg/dl Calcium Level 8.5 mg/dl Magnesium Level 1.8 mg/dl
[2016-11-03] MEDS: HEPARIN 25,000 UNIT/500ML D5W 500 ML IV PRN (12:55)
[2016-11-03] MEDS: SODIUM CHLORIDE 0.9% 1000ML 1,000 ML IV SCH (12:56)
[2016-11-03] MEDS ORDERED: POLYETHYLENE (MIRALAX) 17 GM PACK PO ONE (13:45)
--- NOTE | 2016-11-03 13:46 | Progress Note ---
Internal Med Progress Note Date of Service: Nov 03, 2016. Provider Documentation: SUBJECTIVE: Patient is sitting comfortably in the bed and does not seem to be any acute distress. Abdominal pain in improving. Denies any chest pain/pressure. No palpitations reported.No BM for 2-3 days and feels balloting in the abdomen. OBJECTIVE: Vital Signs-as noted below Examination: General Appearance: Alert and Oriented x3. NAD. Head: Normocephalic Atraumatic. Eyes: PERRLA, EOMI, conjunctiva and sclera clear Neck: Supple. No carotid bruits noted. No JVD. No HJD. Respiratory: Breath sounds clear to auscultation bilaterally. No w/r/r. Cardiovascular: Irregularly irregular. Soft systolic murmur noted LSB I/. No murmurs, rubs, gallops. PMI non displace. Abdomen: Normal bowel sounds, soft nontender. no abdominal bruits. Extremities: No edema, no clubbing or cyanosis. distal pulses 2/4 bilaterally. Neuro: No focal deficits. Psychiatric: Normal affect. Lab data as noted below. ASSESSMENT & PLAN: CT ABDOMEN & PELVIS: Impression: Noninflamed colon diverticulosis. Apparent bowel wall thickening of the descending and sigmoid colon which may be secondary to under distention and less likely a nonspecific colitis. Additional findings: Coarse reticular opacities seen in the lower lungs likely chronic interstitial lung disease. The liver, spleen, pancreas, and gland are unremarkable. The gallbladder is unremarkable. Simple cysts within the right kidney. Otherwise the kidneys and ureters are unremarkable. Circumferential thickening of the urinary bladder with with adjacent stranding which may be secondary to underdistention. Correlation with urinalysis to exclude cystitis. The uterus is surgically absent. NO adnexal masses. The appendix is not visualized and may be diminutive versus surgically absent. No acute osseous abnormality. CTA Abdomen IMPRESSION: 1. No acute abdominal or pelvic findings 2. Extensive diverticulosis. No evidence of acute peridiverticular inflammatory change 3. No evidence of bowel obstruction. No evidence of free air 4. No evidence of celiac, superior mesenteric, or renal artery stenosis. 81 year old female with a PMH of L MCA infarct last month (September 2016), HTN, LVH , hx. of diverticulitis - presents with acute abdominal pain and incidentally found to have new onset atrial fibrillation New Onset Atrial Fibrillation: irregularly irregular rhythm noted on tele monitoring. Hemodynamically stable. Recent CVA, likely due to arrhythmia -Continue IV heparin -Cardiology consulted. Thanks for input. -Lopressor increased to 100mg BID -Started Coumadin and will follow INR. Acute Abdominal Pain: Resolving now. Nonspecific colitis noted on CT Due to new onset A. Fib, concern for mesenteric ischemia -Reviewed CTA abdomen/pelvis which does not show any -Added stool softener Hx. of Left MCA infarct: Stable. Was at [facility] due to infarct in September 2016 Likely due to arrhythmia (new onset A. Fib) -No aspirin -Continue Plavix for now, continue statin -Will need to discuss Plavix due to starting anticoagulation for A. Fib DVT Prophylaxis: I/V Heparin. Code Status: FULL CODE Disposition: Discharge once is clinically stable. Ordered PT Vital Signs: Date Time Temp Pulse Resp B/P (MAP) Pulse Ox O2 Delivery O2 Flow Rate FiO2 11/03/16 12:00 Room Air 11/03/16 11:41 36.4 104 16 98/64 (75) 99 Room Air 11/03/16 07:45 Room Air 11/03/16 07:05 36.5 93 16 137/80 (99) 97 Room Air 11/03/16 04:08 36.7 108 16 128/84 (99) 98 Room Air 11/03/16 04:00 Room Air 11/03/16 00:00 Room Air 11/02/16 23:07 36.8 60 16 106/79 (88) 95 Room Air 11/02/16 21:52 71 154/90 (111) 11/02/16 20:00 97 Room Air 11/02/16 19:26 36.6 66 16 134/89 (104) 97 Room Air 11/02/16 16:00 71 154/90 (111) 11/02/16 16:00 97 Room Air 11/02/16 15:39 36.6 99 16 109/75 (86) 97 Room Air Lab Results: Results Past 24 Hours Test 11/02/16 19:28 11/03/16 05:23 Range/Units Activated Partial Thromboplast Time 59.2 57.2 21.0-31.0 SECONDS Partial Thromboplastin Ratio 2.3 2.2 Prothrombin Time 12.2 9.0-12.0 SECONDS Prothromb Time International Ratio 1.1 0.9-1.1 Sodium Level 140 136-145 mmol/L Potassium Level 3.8 3.5-5.1 mmol/L Chloride Level 108 98-107 mmol/L Carbon Dioxide Level 24 21-32 mmol/L Anion Gap 8.0 3-11 mmol/L Blood Urea Nitrogen 6 7-18 mg/dl Creatinine 0.81 0.60-1.20 mg/dl Est Creatinine Clear Calc Drug Dose 42.4 ml/min Estimated GFR () 78.4 Estimated GFR (Non- 67.6 BUN/Creatinine Ratio 7.0 10-20 Random Glucose 113 70-99 mg/dl Calcium Level 8.5 8.5-10.1 mg/dl Magnesium Level 1.8 1.8-2.4 mg/dl
[2016-11-03] MEDS: WARFARIN SOD 7.5 MG TAB PO SCH (15:20)
[2016-11-04] VITALS (7 sets, daily range): BP systolic 112–139; BP diastolic 72–92; PULSE 81–105; TEMP 36.5–37; O2SAT 96–99
[2016-11-04 06:16] LABS: HEMATOCRIT 36.4 % (37-47); MEAN CELL VOLUME 98.1 fL (80-100); MEAN CORPUSCULAR HEMOGLOBIN 32.3 pg (25-34); MEAN PLATELET VOLUME 10.8 fL (7.4-10.4); PLATELET COUNT 271 K/uL (130-400); RED BLOOD COUNT 3.71 M/uL (4.2-5.4)
[2016-11-04 06:47] LABS: BUN/CREATININE RATIO 8.8 (10-20); CREATININE 0.65 mg/dl (0.60-1.20); POTASSIUM 3.6 mmol/L (3.5-5.1)
[2016-11-04 06:51] LABS: INR 1.2 (0.9-1.1); PARTIAL THROMBOPLASTIN RATIO 2.4
[2016-11-04] MEDS: MAGNESIUM OXIDE 400 MG TAB PO SCH (08:06)
[2016-11-04] MEDS: DOCUSATE SODIUM 100 MG CAP PO SCH ×2 (08:06→20:50)
[2016-11-04] MEDS: CLONIDINE HCL 0.1 MG TAB PO SCH ×2 (08:06→20:50)
[2016-11-04] MEDS: METOPROLOL TARTRATE 100 MG TAB PO SCH ×2 (08:06→20:50)
[2016-11-04] MEDS: LISINOPRIL 20 MG TAB PO SCH ×2 (08:06→20:50)
[2016-11-04] MEDS: AMLODIPINE BESYLATE 5 MG TAB PO SCH (08:07)
[2016-11-04] MEDS: ASPIRIN 81 MG ECTAB PO SCH (08:07)
[2016-11-04] MEDS: ATORVASTATIN 40 MG TAB PO SCH (08:07)
[2016-11-04] MEDS: SODIUM CHLORIDE 0.9% 1000ML 1,000 ML IV SCH (09:39)
--- NOTE | 2016-11-04 15:23 | Progress Note ---
Internal Med Progress Note Date of Service: Nov 04, 2016. Provider Documentation: SUBJECTIVE: Patient is sitting comfortably in the bed and does not seem to be any acute distress. Abdominal pain in improving. Denies any chest pain/pressure. No palpitations reported.Had a BM last night. No other new change or complaint. OBJECTIVE: Vital Signs-as noted below Examination: General Appearance: Alert and Oriented x3. NAD. Head: Normocephalic Atraumatic. Eyes: PERRLA, EOMI, conjunctiva and sclera clear Neck: Supple. No carotid bruits noted. No JVD. No HJD. Respiratory: Breath sounds clear to auscultation bilaterally. No w/r/r. Cardiovascular: Irregularly irregular. Soft systolic murmur noted LSB I/. No murmurs, rubs, gallops. PMI non displace. Abdomen: Normal bowel sounds, soft nontender. no abdominal bruits. Extremities: No edema, no clubbing or cyanosis. distal pulses 2/4 bilaterally. Neuro: No focal deficits. Psychiatric: Normal affect. Lab data as noted below. ASSESSMENT & PLAN: CT ABDOMEN & PELVIS: Impression: Noninflamed colon diverticulosis. Apparent bowel wall thickening of the descending and sigmoid colon which may be secondary to under distention and less likely a nonspecific colitis. Additional findings: Coarse reticular opacities seen in the lower lungs likely chronic interstitial lung disease. The liver, spleen, pancreas, and gland are unremarkable. The gallbladder is unremarkable. Simple cysts within the right kidney. Otherwise the kidneys and ureters are unremarkable. Circumferential thickening of the urinary bladder with with adjacent stranding which may be secondary to underdistention. Correlation with urinalysis to exclude cystitis. The uterus is surgically absent. NO adnexal masses. The appendix is not visualized and may be diminutive versus surgically absent. No acute osseous abnormality. CTA Abdomen IMPRESSION: 1. No acute abdominal or pelvic findings 2. Extensive diverticulosis. No evidence of acute peridiverticular inflammatory change 3. No evidence of bowel obstruction. No evidence of free air 4. No evidence of celiac, superior mesenteric, or renal artery stenosis. 81 year old female with a PMH of L MCA infarct last month (September 2016), HTN, LVH , hx. of diverticulitis - presents with acute abdominal pain and incidentally found to have new onset atrial fibrillation New Onset Atrial Fibrillation: irregularly irregular rhythm noted on tele monitoring. Hemodynamically stable. Recent CVA, likely due to arrhythmia -Continue IV heparin. Coumadin has been started. INR is 1.2. -Cardiology consulted. Thanks for input. -Lopressor increased to 100mg BID -Follow INR daily. Acute Abdominal Pain: Resolving now. Nonspecific colitis noted on CT Due to new onset A. Fib, concern for mesenteric ischemia -Reviewed CTA abdomen/pelvis which does not show any -Added stool softener Hx. of Left MCA infarct: Stable. Was at [facility] due to infarct in September 2016 Likely due to arrhythmia (new onset A. Fib) -No aspirin -Continue Plavix for now, continue statin -Will need to discuss Plavix due to starting anticoagulation for A. Fib DVT Prophylaxis: I/V Heparin. Code Status: FULL CODE Disposition: Discharge once is clinically stable. Ordered PT Vital Signs: Date Time Temp Pulse Resp B/P (MAP) Pulse Ox O2 Delivery O2 Flow Rate FiO2 11/04/16 12:04 Room Air 11/04/16 11:17 36.8 105 19 119/86 (97) 97 Room Air 11/04/16 10:32 105 98 11/04/16 07:46 Room Air 11/04/16 07:22 36.7 88 18 139/88 (105) 96 Room Air 11/04/16 04:05 Room Air 11/04/16 03:49 37.0 88 16 131/87 (102) 97 Room Air 11/04/16 00:16 Room Air 11/03/16 23:38 36.6 80 18 135/105 (115) 95 Room Air 11/03/16 20:08 36.5 96 16 137/92 (107) 98 Room Air 11/03/16 20:08 Room Air 11/03/16 16:00 96 Room Air Lab Results: Results Past 24 Hours Test 11/04/16 05:43 Range/Units White Blood Count 7.70 4.8-10.8 K/uL Red Blood Count 3.71 4.2-5.4 M/uL Hemoglobin 12.0 12.0-16.0 g/dL Hematocrit 36.4 37-47 % Mean Corpuscular Volume 98.1 80-100 fL Mean Corpuscular Hemoglobin 32.3 25-34 pg Mean Corpuscular Hemoglobin Concent 33.0 32-36 g/dl RDW Standard Deviation 44.7 36.4-46.3 fL RDW Coefficient of Variation 12.6 11.5-14.5 % Platelet Count 271 130-400 K/uL Mean Platelet Volume 10.8 7.4-10.4 fL Prothrombin Time 13.0 9.0-12.0 SECONDS Prothromb Time International Ratio 1.2 0.9-1.1 Activated Partial Thromboplast Time 62.7 21.0-31.0 SECONDS Partial Thromboplastin Ratio 2.4 Sodium Level 141 136-145 mmol/L Potassium Level 3.6 3.5-5.1 mmol/L Chloride Level 111 98-107 mmol/L Carbon Dioxide Level 23 21-32 mmol/L Anion Gap 7.0 3-11 mmol/L Blood Urea Nitrogen 6 7-18 mg/dl Creatinine 0.65 0.60-1.20 mg/dl Est Creatinine Clear Calc Drug Dose 52.8 ml/min Estimated GFR () 95.8 Estimated GFR (Non- 82.7 BUN/Creatinine Ratio 8.8 10-20 Random Glucose 106 70-99 mg/dl Calcium Level 8.0 8.5-10.1 mg/dl
[2016-11-04] MEDS ORDERED: POLYETHYLENE (MIRALAX) 17 GM PACK PO ONE (15:45)
[2016-11-04] MEDS: WARFARIN SOD 7.5 MG TAB PO SCH (16:12)
[2016-11-04] MEDS: HEPARIN 25,000 UNIT/500ML D5W 500 ML IV PRN (18:40)
[2016-11-05 04:11] VITALS: BP 130/83; PULSE 80; TEMP 37; O2SAT 97
[2016-11-05] MEDS: SODIUM CHLORIDE 0.9% 1000ML 1,000 ML IV SCH (05:25)
[2016-11-05 06:22] LABS: INR 1.5 (0.9-1.1); PARTIAL THROMBOPLASTIN RATIO 2.5
[2016-11-05 06:32] LABS: BUN/CREATININE RATIO 7.1 (10-20); CALCIUM 8.2 mg/dl (8.5-10.1); CREATININE 0.75 mg/dl (0.60-1.20); POTASSIUM 3.7 mmol/L (3.5-5.1)
[2016-11-05 07:06] VITALS: BP 133/87; PULSE 96; TEMP 37.1; O2SAT 97
[2016-11-05] MEDS: ATORVASTATIN 40 MG TAB PO SCH (08:50)
[2016-11-05] MEDS: ASPIRIN 81 MG ECTAB PO SCH (08:50)
[2016-11-05] MEDS: AMLODIPINE BESYLATE 5 MG TAB PO SCH (08:50)
[2016-11-05] MEDS: LISINOPRIL 20 MG TAB PO SCH (08:50)
[2016-11-05] MEDS: MAGNESIUM OXIDE 400 MG TAB PO SCH (08:50)
[2016-11-05] MEDS: DOCUSATE SODIUM 100 MG CAP PO SCH (08:50)
[2016-11-05] MEDS: METOPROLOL TARTRATE 100 MG TAB PO SCH (08:50)
[2016-11-05] MEDS: CLONIDINE HCL 0.1 MG TAB PO SCH (08:51)
[2016-11-05 11:38] VITALS: BP 118/85; PULSE 94; TEMP 36.8; O2SAT 98
--- NOTE | 2016-11-05 15:33 | Progress Note ---
Internal Med Progress Note Date of Service: Nov 05, 2016. Provider Documentation: SUBJECTIVE: Patient is sitting comfortably in the bed and does not seem to be any acute distress. Abdominal pain in improving. Denies any chest pain/pressure. No palpitations reported.Had a BM last night.has been ambulating in the hallway. No other new change or complaint. OBJECTIVE: Vital Signs-as noted below Examination: General Appearance: Alert and Oriented x3. NAD. Head: Normocephalic Atraumatic. Eyes: PERRLA, EOMI, conjunctiva and sclera clear Neck: Supple. No carotid bruits noted. No JVD. No HJD. Respiratory: Breath sounds clear to auscultation bilaterally. No w/r/r. Cardiovascular: Irregularly irregular. Soft systolic murmur noted LSB I/. No murmurs, rubs, gallops. PMI non displace. Abdomen: Normal bowel sounds, soft nontender. no abdominal bruits. Extremities: No edema, no clubbing or cyanosis. distal pulses 2/4 bilaterally. Neuro: No focal deficits. Psychiatric: Normal affect. Lab data as noted below. ASSESSMENT & PLAN: CT ABDOMEN & PELVIS: Impression: Noninflamed colon diverticulosis. Apparent bowel wall thickening of the descending and sigmoid colon which may be secondary to under distention and less likely a nonspecific colitis. Additional findings: Coarse reticular opacities seen in the lower lungs likely chronic interstitial lung disease. The liver, spleen, pancreas, and gland are unremarkable. The gallbladder is unremarkable. Simple cysts within the right kidney. Otherwise the kidneys and ureters are unremarkable. Circumferential thickening of the urinary bladder with with adjacent stranding which may be secondary to underdistention. Correlation with urinalysis to exclude cystitis. The uterus is surgically absent. NO adnexal masses. The appendix is not visualized and may be diminutive versus surgically absent. No acute osseous abnormality. CTA Abdomen IMPRESSION: 1. No acute abdominal or pelvic findings 2. Extensive diverticulosis. No evidence of acute peridiverticular inflammatory change 3. No evidence of bowel obstruction. No evidence of free air 4. No evidence of celiac, superior mesenteric, or renal artery stenosis. 81 year old female with a PMH of L MCA infarct last month (September 2016), HTN, LVH , hx. of diverticulitis - presents with acute abdominal pain and incidentally found to have new onset atrial fibrillation New Onset Atrial Fibrillation: irregularly irregular rhythm noted on tele monitoring. Hemodynamically stable. Recent CVA, likely due to arrhythmia -Continue IV heparin. Coumadin has been started. INR is 1.5. -Cardiology consulted. Thanks for input. -Lopressor increased to 100mg BID -Follow INR daily. Acute Abdominal Pain: Resolving now. Nonspecific colitis noted on CT Due to new onset A. Fib, concern for mesenteric ischemia -Reviewed CTA abdomen/pelvis which does not show any -Added stool softener Hx. of Left MCA infarct: Stable. Was at [facility] due to infarct in September 2016 Likely due to arrhythmia (new onset A. Fib) -No aspirin -Continue Plavix for now, continue statin -Will need to discuss Plavix due to starting anticoagulation for A. Fib DVT Prophylaxis: I/V Heparin. Code Status: FULL CODE Disposition: Discharge home later today. Will give one dose of Sq Lovenox later in evening and stop I/V Heparin. She will go home on both Lovenox and Coumadin. Follow up appointment with PCP in 2-3 days. Follow up appointment with [facility] on coming Sunday. Explained to the patient in detail. Vital Signs: Date Time Temp Pulse Resp B/P (MAP) Pulse Ox O2 Delivery O2 Flow Rate FiO2 11/05/16 11:38 36.8 94 17 118/85 (96) 98 Room Air 11/05/16 08:00 Room Air 11/05/16 07:06 37.1 96 20 133/87 (102) 97 Room Air 11/05/16 04:12 Room Air 11/05/16 04:11 37.0 80 20 130/83 (99) 97 Room Air 11/05/16 00:13 Room Air 11/04/16 23:16 36.5 81 18 130/87 (101) 99 Room Air 11/04/16 19:54 Room Air 11/04/16 19:52 36.8 87 20 137/84 (101) 98 Room Air 11/04/16 16:00 Room Air 11/04/16 15:30 36.6 86 19 136/92 (107) 98 Room Air Lab Results: Results Past 24 Hours Test 11/05/16 05:27 Range/Units Prothrombin Time 16.0 9.0-12.0 SECONDS Prothromb Time International Ratio 1.5 0.9-1.1 Activated Partial Thromboplast Time 65.0 21.0-31.0 SECONDS Partial Thromboplastin Ratio 2.5 Sodium Level 140 136-145 mmol/L Potassium Level 3.7 3.5-5.1 mmol/L Chloride Level 110 98-107 mmol/L Carbon Dioxide Level 21 21-32 mmol/L Anion Gap 9.0 3-11 mmol/L Blood Urea Nitrogen 5 7-18 mg/dl Creatinine 0.75 0.60-1.20 mg/dl Est Creatinine Clear Calc Drug Dose 45.8 ml/min Estimated GFR () 86.0 Estimated GFR (Non- 74.2 BUN/Creatinine Ratio 7.1 10-20 Random Glucose 101 70-99 mg/dl Calcium Level 8.2 8.5-10.1 mg/dl
[2016-11-05 15:42] VITALS: BP 137/94; PULSE 88; TEMP 36.4; O2SAT 98
[2016-11-05] MEDS: WARFARIN SOD 7.5 MG TAB PO SCH (16:36)
[2016-11-05] MEDS ORDERED: WARF5TAB90 PO (16:53)
[2016-11-05] MEDS ORDERED: LPR100 PO (16:53)
[2016-11-05] MEDS ORDERED: CLC100 PO (16:53)
[2016-11-05] MEDS ORDERED: LVNIS60 SQ (16:53)
--- NOTE | 2016-11-05 16:57 | Discharge Instructions ---
Discharge Instructions Date of Service Nov 05, 2016. Admission Reason for Admission: Diffuse Abdominal Pain, New Onset A-Fib Discharge Discharge Diagnosis / Problem: New onset Atrial Fibrillation with RVR Discharge Goals Goal(s): Decrease discomfort, Improve function, Increase independence, Improve disease control, Learn about illness, Diagnostic testing, Therapeutic intervention, Prevent Disease Progression Activity Recommendations Activity Limitations: resume your previous activity (As Tolerated) Lifting Limitations: gradually increase as tolerated Exercise/Sports Limitations: as tolerated Shower/Bathe: no limitations 1. Take all the medications as tolerated. 2. Start Enoxaparin Injection from 11/06/2016 AM and take it twice a day. 3. Call Coumadin Clinic [phone] and make an appointment for coming Sunday for blood test PT/INR 4. Avoid Caffeine products. Follow up with your PCP in the next 3-5 days after discharge. . Current Hospital Diet Patient's current hospital diet: AHA Diet (Heart Healthy) Discharge Diet Recommended Diet: AHA Diet (Heart Healthy) Pending Studies Studies pending at discharge: no Laboratory Results Hemoglobin A1c Test 10/09/16 19:36 Range/Units Estimated Average Glucose 108 mg/dl Hemoglobin A1c 5.4 4.5-5.6 % Lipid Panel Test 10/10/16 06:15 Range/Units Triglycerides Level 85 0-150 mg/dl Cholesterol Level 160 0-200 mg/dl HDL Cholesterol 45 mg/dl Cholesterol/HDL Ratio 3.6 LDL Cholesterol, Calculated 98 mg/dl Medical Emergencies . Who to Call and When: Medical Emergencies: If at any time you feel your situation is an emergency, please call 911 immediately. . Non-Emergent Contact Non-Emergency issues call your: Primary Care Provider . . "Provider Documentation" section prepared by Francisco Talamantes. . VTE Core Measure Inpt VTE Proph given/why not?: Unfractionated heparin SQ
--- NOTE | 2016-11-05 17:00 | Discharge Summary ---
Discharge Summary Date of Service Nov 05, 2016. Discharge Summary Admission Date: Nov 02, 2016 at 05:39 Discharge Date: Nov 05, 2016 Discharge Disposition: Home Principal Diagnosis: New Onset Atrial Fibrillation with RVR Acute Abdominal pain (Resolved) Secondary Diagnoses/Problems: Left Sided MCA infarct causing recent CVA Procedures: CT Head CT Abdomen/Pelvis MRA Abdomen/Pelvis Vaccinations: NONE Consultations: Cardiology Pending Studies/Follow-Up: Follow up with cardiology as outpatient Follow up in [facility] on 11/07/2016 Medication Reconciliation New Medications: Warfarin Sodium (Coumadin) 5 Mg Tab 1 TAB PO DAILY for 15 Days, #15 TAB 0 Refills Docusate Sodium (Docusate Sodium) 100 Mg Cap 100 MG PO BID PRN for Constipation, #30 CAP Enoxaparin (Enoxaparin Sodium) 60 Mg/0.6 Ml Inj 60 MG SQ BID, #10 Metoprolol Tartrate (Metoprolol Tartrate) 100 Mg Tab 100 MG PO BID, #60 TAB Continued Medications: Amlodipine (Norvasc) 5 Mg Tab 5 MG PO DAILY, TAB Ascorbic Acid (Ascorbic Acid) 500 Mg Tab 500 MG PO DAILY, TAB Atorvastatin (Lipitor) 80 Mg Tab 80 MG PO DAILY, TAB Calcium Carbonate-Vitamin D W/ (Caltrate 600 Plus) 1 Tab Tab 1 TAB PO BID, TAB Clonidine Hcl (Catapres) 0.2 Mg Tab 0.2 MG PO BID, TAB Clopidogrel (Plavix) 75 Mg Tab 75 MG PO DAILY, TAB Denosumab (Prolia) 60 Mg/Ml Connie 1 ML SQ [id number] Lisinopril (Zestril) 20 Mg Tab 20 MG PO BID, 0 Refills Metronidazole (Topical) (Metrogel) 0.75 % Gel 1 APPLN TD BID Multivitamin (Multivitamin) Tab 1 TAB PO DAILY, TAB Discontinued Medications: Metoprolol Tartrate (Lopressor) (Lopressor) 50 Mg Tab 75 MG PO BID, 0 Refills Admission Information HPI (per Admitting provider): This is an 81 year old female with a PMH of L MCA infarct last month (September 2016) , HTN, LVH, hx. of diverticulitis - presents with acute abdominal pain; began around October 31 mid-day, with a sharp, diffuse pain that radiated to the L flank area. States that the pain never subsided; but would wax and wane. The pain persisted throughout the night and she called EMS at around 1:30AM. Upon presentation, she had a CT performed of the abdomen, but there were nonspecific findings. While monitored in the ER, she was incidentally found to be in atrial fibrillation, which is a new finding. She denies palpitations, chest pain or shortness of breath. No residual symptoms from the stroke. Abdominal pain improving after medications. Denies diarrhea, nausea/vomiting; fevers/chills - she had constipation last week, but did have a bowel movement prior to arrival ( November 01). Physical Exam (per Admitting): General Appearance: + mild distress (secondary to pain) Head: normocephalic, atraumatic ENT: hearing grossly normal Respiratory/Chest: lungs clear, normal breath sounds, no respiratory distress, no accessory muscle use Cardiovascular: no edema, no murmur, + irregularly irregular Abdomen/GI: + tenderness (diffusely to mild palpation), + abnormal bowel sounds (decreased bowel sounds), + distended Extremities/Musculoskelatal: no calf tenderness, normal capillary refill, no pedal edema Neurologic/Psych: film historian II-XII nml as tested, no motor/sensory deficits, alert , normal mood/affect, oriented x 3 Skin: normal color Lymphatic: no adenopathy Hospital Course CT ABDOMEN & PELVIS: Impression: Noninflamed colon diverticulosis. Apparent bowel wall thickening of the descending and sigmoid colon which may be secondary to under distention and less likely a nonspecific colitis. Additional findings: Coarse reticular opacities seen in the lower lungs likely chronic interstitial lung disease. The liver, spleen, pancreas, and gland are unremarkable. The gallbladder is unremarkable. Simple cysts within the right kidney. Otherwise the kidneys and ureters are unremarkable. Circumferential thickening of the urinary bladder with with adjacent stranding which may be secondary to underdistention. Correlation with urinalysis to exclude cystitis. The uterus is surgically absent. NO adnexal masses. The appendix is not visualized and may be diminutive versus surgically absent. No acute osseous abnormality. CTA Abdomen IMPRESSION: 1. No acute abdominal or pelvic findings 2. Extensive diverticulosis. No evidence of acute peridiverticular inflammatory change 3. No evidence of bowel obstruction. No evidence of free air 4. No evidence of celiac, superior mesenteric, or renal artery stenosis. 81 year old female with a PMH of L MCA infarct last month (September 2016), HTN, LVH , hx. of diverticulitis - presents with acute abdominal pain and incidentally found to have new onset atrial fibrillation New Onset Atrial Fibrillation: irregularly irregular rhythm noted on tele monitoring. Hemodynamically stable. Recent CVA, likely due to arrhythmia -Continue IV heparin. Coumadin has been started. INR is 1.5. -Cardiology consulted. Thanks for input. -Lopressor increased to 100mg BID -Follow INR daily. Acute Abdominal Pain: Resolving now. Nonspecific colitis noted on CT Due to new onset A. Fib, concern for mesenteric ischemia -Reviewed CTA abdomen/pelvis which does not show any -Added stool softener Hx. of Left MCA infarct: Stable. Was at [facility] due to infarct in September 2016 Likely due to arrhythmia (new onset A. Fib) -No aspirin -Continue Plavix for now, continue statin -Will need to discuss Plavix due to starting anticoagulation for A. Fib DVT Prophylaxis: I/V Heparin. Code Status: FULL CODE Disposition: Discharge home later today. Will give one dose of Sq Lovenox later in evening and stop I/V Heparin. She will go home on both Lovenox and Coumadin. Follow up appointment with PCP in 2-3 days. Follow up appointment with Coumadin Clinic on coming Sunday. Explained to the patient in detail. Total time spent on discharge = 42 minutes. This includes examination of the patient, discharge planning, medication reconciliation, and communication with other providers. Discharge Instructions Activity Recommendations Activity Limitations: resume your previous activity (As Tolerated) Lifting Limitations: gradually increase as tolerated Exercise/Sports Limitations: as tolerated Shower/Bathe: no limitations 1. Take all the medications as tolerated. 2. Start Enoxaparin Injection from 11/06/2016 AM and take it twice a day. 3. Call [facility]madin Clinic [phone] and make an appointment for coming Sunday for blood test PT/INR 4. Avoid Caffeine products. Follow up with your PCP in the next 3-5 days after discharge. . Current Hospital Diet Patient's current hospital diet: AHA Diet (Heart Healthy) Discharge Diet Recommended Diet: AHA Diet (Heart Healthy) Additional Copies To José Vergara D.O.
[2016-11-05 17:38] VITALS: BP 137/94; PULSE 88; TEMP 36.4; O2SAT 98
[2016-11-05] MEDS ORDERED: HEPARIN-STOP ORDER ONE (18:00)
[2016-11-05] MEDS ORDERED: ENOXAPARIN 60 MG/0.6 ML SYR SQ ONE (18:00)
== END 2016-11-05 19:15 | disposition home health service (06) | DRG 308 ==
LOC: EDBD 01:51 → C.EDB 01:52 → C.MED 05:39 → ENRESERV 06:24
PROVIDERS: ADMIT Family Medicine; ATTEND Emergency Medicine
DX: I48.91 Unspecified atrial fibrillation (principal); K55.059 Acute (reversible) ischemia of intestine, part and extent unspecified; K52.9 Noninfective gastroenteritis and colitis, unspecified; I10 Essential (primary) hypertension; M81.0 Age-related osteoporosis without current pathological fracture; D64.9 Anemia, unspecified; L71.9 Rosacea, unspecified; Z86.73 Personal history of transient ischemic attack (TIA), and cerebral infarction without residual deficits

== ENCOUNTER → 2017-07-05 | Outpatient (CLI) | payer OTHER ==
[~2017-07-05] MED LIST changes: +CLC100 PO; +CLOP1TAB15 PO; +LPR100 PO; +LVNIS60 SQ; -METO50TA16 PO; +METR0.7527 TD; -METR1GEL3 TD; -PLV75 PO; +WARF5TAB90 PO
--- NOTE | 2017-07-05 15:06 | MAMMOGRAPHY REPORT ---
BILATERAL DIGITAL SCREENING MAMMOGRAM TOMOSYNTHESIS WITH CAD: 07/05/2017 CLINICAL HISTORY: Routine screening. Patient has no complaints. TECHNIQUE: Breast tomosynthesis in addition to standard 2D mammography was performed. Current study was also evaluated with a Computer Aided Detection (CAD) system. COMPARISON: Comparison is made to exams dated: 07/03/2016 mammogram, 06/30/2015 mammogram, 05/28/2014 katerina mogram, 05/27/2013 mammogram, 05/28/2012 mammogram, and 05/24/2012 mammogram - [facility]. BREAST COMPOSITION: There are scattered areas of fibroglandular density in both breasts. FINDINGS: No suspicious masses, calcifications, or areas of architectural distortion are noted in ei ther breast. There has been no significant interval change compared to prior exams. Bilateral benign -appearing calcifications are not significantly changed. Asymmetry along the posterior nipple line o n the left cc view is stable compared to prior exams including the 2014 and 2010 exams. IMPRESSION: ACR BI-RADS CATEGORY 2: BENIGN There is no mammographic evidence of malignancy. A 1 year screening mammogram is recommended. The pa tient will receive written notification of the results. Approximately 10% of breast cancers are not detected with mammography. A negative mammographic report should not delay biopsy if a clinically suggestive mass is present. Monica Roach M.D. /:07/05/2017 07:37:19 Chiropractic Doctor: Maureen ARIAS)(M), [facility] letter sent: Normal 1/2 BI-RADS Code: ACR BI-RADS Category 2: Benign
== END | disposition home or self-care (01) ==
LOC: C.MAMM 07:12
PROVIDERS: ATTEND Internal Medicine
DX: Z12.31 Encounter for screening mammogram for malignant neoplasm of breast (principal)

== ENCOUNTER 2019-07-04 14:46 | Inpatient (IN) ==
--- OUTSIDE RECORDS SUMMARY | 2019-07-04 14:48 | External Medical Summary | Continuity of Care Document ---
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 Refills: 0 Tetracycline HCl - 250 MG Oral Capsule Refills: 0 Ygxotim-Tdnqxhhpof-Vgjltup D WAFR; 85.9 - 51 - 330 mg - mg - iu MDD:2 Refills: 0 Multivitamins TABS Refills: 0 metroNIDAZOLE 1 % External Gel; APPLY SPARINGLY TO AFF ECTED AREA(S) ONCE DAILY Reza Ozuna Start: 01-Jun-2014 Quantity: 1 60 GM Tube Refills: 3 metroNIDAZOLE 1 % External Gel; APPLY SPARINGLY TO AFF ECTED AREA(S) ONCE DAILY Reza Ozuna 60 GM Tube Quantity: 1 Refills: 2 metroNIDAZOLE 0.75 % External Gel; APPLY AND RUB IN A THIN FILM TO AFFECTED AREAS TWICE DAILY.(AM AND PM). Reza Ozuna Start: 26-Jul-2016 Quantity: 45 Refills: 1 Procedures History of Tonsillectomy Status: Complet ed History of Hysterectomy Status: Complete d History of Appendectomy Status: Complete d History of Laparoscopic Lysis Of Intestinal Adhesions Status: Completed History of Shoulder Surgery Status: Comp leted Immunizations Immunizations not documented Social History - Smoking Status Never smoked tobacco Plan of Treatment Planned Observations Planned Goals not documented Results No Known Results Results not documented
--- NOTE | 2019-07-04 15:32 | Emergency Department Note ---
Entered by Bud Burnett acting as a scribe for History of Present Illness General Chief complaint: Rectal Bleed Stated complaint: BLEEDING Time Seen by Provider: 07/04/19 14:51 Source: patient History of Present Illness Onset (ago): hour(s) 9 Location: buttocks (rectum) Pain Consistency: + constant Maximum Pain Intensity: 0 Quality: + other (bleeding) Associated symptoms: + denies other symptoms (rectal pain, leg swelling) and + other (abdominal gargling) The patient is an 83 y/o female who presents to the ED w/ CC of constant rectal bleeding beginning 9 hours ago. The patient states she woke up this morning with a gargle in her stomach. She reports she then started bleeding from her rectum. The patient notes a few years ago she had similar symptoms but did not go to the doctor. She states she was evaluated by her PCP today and did not have a rectal exam. The patient reports she was sent to the ED because her PCP was concerned of the bleeding without a BM or pain. She notes she takes Coumadin for a-fib. The patient denies rectal pain, leg swelling, recent traveling, and a history of a blood transfusion. Home Medications Home Medications Medication Instructions Recorded Confirmed Type ascorbic acid (vitamin C) [Vitamin 500 mg PO DAILY 07/04/19 07/04/19 History C] atorvastatin [Lipitor] 80 mg PO DAILY 07/04/19 07/04/19 History calcium carbonate-vitamin D3 1 tab PO DAILY 07/04/19 07/04/19 History [Caltrate 600 plus D] clonidine HCl 0.2 mg PO BID 07/04/19 07/04/19 History denosumab [Prolia] 60 mg SUBCUT .Q6MO 07/04/19 07/04/19 History digoxin [Digox] 125 mcg PO Q OTHER DAY 07/04/19 07/04/19 History lisinopril 20 mg PO BID 07/04/19 07/04/19 History magnesium oxide 200 mg PO DAILY 07/04/19 07/04/19 History metoprolol tartrate 100 mg PO BID 07/04/19 07/04/19 History metronidazole [Rosadan] 1 applic TOPICAL BID 07/04/19 07/04/19 History multivitamin 1 tab PO DAILY 07/04/19 07/04/19 History omeprazole 20 mg PO DAILY 07/04/19 07/04/19 History Allergies Allergy/AdvReac Type Severity Reaction Status Date / Time pneumococcal vaccine Allergy Mild DIZZINESS Verified 07/04/19 16:03 AND FELT LOUSY Sulfa (Sulfonamide Allergy Unknown high Verified 07/04/19 16:03 Antibiotics) fever/ rash aspirin AdvReac Unknown epistaxis Verified 07/04/19 16:03 Past Med/Surg History Medical History Anterior epistaxis (Resolved) History of ischemic bowel disease (Chronic) Hypertensive urgency Osteoporosis (Inactive) Stroke-like symptoms Surgical History H/O exploratory laparotomy (Inactive) "H/O Volvulus, adhesions and ischemic bowel/appendix" H/O laminectomy (Inactive) H/O shoulder surgery (Inactive) Hx of cardiac cath (Inactive) Hx of tonsillectomy (Inactive) S/P ELEN-BSO (Inactive) Family History Other Family history non-contributory Social History Feels Safe at Home: Yes Smoking Status: Never smoker Review of Systems See HPI for pertinent positives & negatives. and A total of 10 systems reviewed and were otherwise negative Physical Exam Vital Signs Vital Signs - 24 hr 07/04/19 14:48 07/04/19 15:02 Temperature 36.5 C Temperature Source Oral Pulse Rate 86 Respiratory Rate 18 Blood Pressure 210/133 H Blood Pressure Mean 158 Pulse Oximetry 98 Oxygen Delivery Method Room Air Sepsis Recent Fever Within 48 Hours No Sepsis New/Unexplained Change in Mental Status No Sepsis Action Taken by Nursing No Action Required GENERAL: The patient is awake and alert. She is very anxious appearing. EYES: The conjunctivae are clear. The pupils are round and reactive. EARS, NOSE, MOUTH AND THROAT: The nose is without any evidence of any deformity. Mucous membranes are moist. Tongue is midline. NECK: The neck is nontender and supple. RESPIRATORY: Normal respiratory effort is noted there is no evidence of wheezing rhonchi or rales CARDIOVASCULAR: Regular rate and rhythm noted there no murmurs rubs or gallops normal S1 normal S2. GASTROINTESTINAL: The abdomen is soft and nontender. Rectal exam revealed gross blood per rectum which was extensive and clotted. MUSCULOSKELETAL/EXTREMITIES: There is no evidence of gross deformity full range of motion is noted in the hips and shoulders. SKIN: There is no obvious evidence of any rash. Skin was cool pale and dry. There is trace pedal edema bilaterally. NEUROLOGIC: Patient is awake alert and oriented x3. Course Course 1453: The patient was evaluated in room A09B. A complete history and physical exam was performed. 164: Upon reevaluation, the patient is resting comfortably. I discussed laboratory and radiographic results with her. She verbalized agreement of the treatment plan. The patient will be evaluated for further management and care. 1650: I reviewed the patient's case with Lissa Padron PA-C, [facility], attending Dr. Bernard. She will evaluate the patient for further management. Medical Decision Making Differential Diagnosis Differential diagnosis includes etiologies such as diverticulosis, AVM, coagulopathy, colitis, inflammatory bowel disease, malignancy, Ammy-Dennison tear, esophagitis, peptic ulcer disease, variceal bleed, gastritis, epistaxis, fissure, hemorrhoids, as well as others were entertained. Medical Records Attestation: I reviewed the patient's medical records. Home Medications Current Medication List: was personally reviewed by me Laboratory Data Attestation: I reviewed the patient's lab results. Result diagrams: 07/04/19 15:10 07/04/19 15:10 Lab Results 07/04/19 07/04/19 07/04/19 Range/Units 15:10 15:10 15:10 WBC 9.74 (4.8-10.8) K/uL RBC 3.60 L (4.2-5.4) M/uL Hgb 12.1 (12.0-16.0) g/dL Hct 37.1 (37-47) % MCV 103.1 H (80-100) fL MCH 33.6 (25-34) pg MCHC 32.6 (32-36) g/dL RDW Std Deviation 50.8 H (36.4-46.3) fL RDW Coeff of Maddi 13.5 (11.5-14.5) % Plt Count 284 (130-400) K/uL MPV 11.1 H (7.4-10.4) fL Immature Gran % (Auto) 0.2 % Neut % (Auto) 71.5 % Lymph % (Auto) 19.2 % Lea % (Auto) 8.4 % Eos % (Auto) 0.3 % Baso % (Auto) 0.4 % Immature Gran # (Auto) 0.02 (0.00-0.02) K/uL Neut # (Auto) 6.96 H (1.4-6.5) K/uL Lymph # (Auto) 1.87 (1.2-3.4) K/uL Lea # (Auto) 0.82 H (0.11-0.59) K/uL Eos # (Auto) 0.03 (0-0.5) K/uL Baso # (Auto) 0.04 (0-0.2) K/uL PT 23.6 H (9.0-12.0) Seconds INR 2.3 H (0.9-1.1) APTT 34.4 H (21.0-31.0) Seconds PTT Ratio 1.2 Sodium (136-145) mmol/L Potassium (3.5-5.1) mmol/L Chloride (98-107) mmol/L Carbon Dioxide (21-32) mmol/L Anion Gap (3-11) BUN (7-18) mg/dl Creatinine (0.6-1.2) mg/dl Est Cr Clr Drug Dosing ml/min Est GFR ( Amer) Est GFR (Non-Af Amer) BUN/Creatinine Ratio (10-20) Glucose (70-99) mg/dl Calcium (8.5-10.1) mg/dl Total Bilirubin (0.2-1) mg/dl AST (15-37) U/L ALT (12-78) U/L Alkaline Phosphatase (45-117) U/L Troponin I (0-0.045) ng/ml Total Protein (6.4-8.2) gm/dl Albumin (3.4-5.0) gm/dl Globulin (2.5-4.0) gm/dl Albumin/Globulin Ratio (0.9-2) Lipase (73-393) U/L Blood Type O Positive Antibody Screen NEGATIVE 07/04/19 Range/Units 15:10 WBC (4.8-10.8) K/uL RBC (4.2-5.4) M/uL Hgb (12.0-16.0) g/dL Hct (37-47) % MCV (80-100) fL MCH (25-34) pg MCHC (32-36) g/dL RDW Std Deviation (36.4-46.3) fL RDW Coeff of Maddi (11.5-14.5) % Plt Count (130-400) K/uL MPV (7.4-10.4) fL Immature Gran % (Auto) % Neut % (Auto) % Lymph % (Auto) % Lea % (Auto) % Eos % (Auto) % Baso % (Auto) % Immature Gran # (Auto) (0.00-0.02) K/uL Neut # (Auto) (1.4-6.5) K/uL Lymph # (Auto) (1.2-3.4) K/uL Lea # (Auto) (0.11-0.59) K/uL Eos # (Auto) (0-0.5) K/uL Baso # (Auto) (0-0.2) K/uL PT (9.0-12.0) Seconds INR (0.9-1.1) APTT (21.0-31.0) Seconds PTT Ratio Sodium 138 (136-145) mmol/L Potassium 4.0 (3.5-5.1) mmol/L Chloride 106 (98-107) mmol/L Carbon Dioxide 23 (21-32) mmol/L Anion Gap 9.0 (3-11) BUN 17 (7-18) mg/dl Creatinine 0.93 (0.6-1.2) mg/dl Est Cr Clr Drug Dosing 34.0 ml/min Est GFR ( Amer) 65.4 Est GFR (Non-Af Amer) 56.4 BUN/Creatinine Ratio 17.8 (10-20) Glucose 115 H (70-99) mg/dl Calcium 9.2 (8.5-10.1) mg/dl Total Bilirubin 1.0 (0.2-1) mg/dl AST 26 (15-37) U/L ALT 22 (12-78) U/L Alkaline Phosphatase 94 (45-117) U/L Troponin I < 0.015 (0-0.045) ng/ml Total Protein 8.0 (6.4-8.2) gm/dl Albumin 3.3 L (3.4-5.0) gm/dl Globulin 4.7 H (2.5-4.0) gm/dl Albumin/Globulin Ratio 0.7 L (0.9-2) Lipase 106 (73-393) U/L Blood Type Antibody Screen Imaging Data Radiologist's Impression: Radiology results as stated below per my review and the radiologist's interpretation: XR chest 1V portable, XR KUB/Abdomen 1 view HISTORY: 83 years-old Female GIB acute GI bleeding COMPARISON: Acute abdominal series radiographs and CT abdomen and pelvis 11/02/2016 TECHNIQUE: AP view of the chest with KUB radiograph FINDINGS: CHEST: Cardiac silhouette is enlarged, unchanged. Chronic reticular opacities suggestive of fibrotic changes. No pneumothorax, large pleural effusion, overt pulmonary edema or new airspace consolidation. Degenerative changes of the shoulders and spine. ORIF changes of the right humerus. Mild convex left curvatu re of the lower thoracic spine. KUB: Bowel gas pattern is nonobstructive. Mild to moderate fecal retention. No pneumatosis or pneumoperitoneum. No definite urolith. Degenerative changes of the spine, pelvis and hips. IMPRESSION: 1. Cardiomegaly without acute cardiopulmonary abnormality. 3. Chronic interstitial lung disease. 3. Nonobstructive bowel gas pattern without pneumoperitoneum. ACT 112: Negative or not required by law. The above report was generated using voice recognition software. It may contain grammatical, syntax or spelling errors. Electronically signed by: Isaiah Hines M.D. 07/04/2019 3:45 PM ECG Data Attestation: I personally reviewed and interpreted this ECG as follows: Indication: + other (hx of afib) Rate (beats per minute): 80 Rhythm: + atrial fibrillation ECG ST segments: + ST depression (Lateral) ECG Findings: no PACs and no PVCs Comparison ECG Date: from (11/04/16) Change: the following changes noted (ST abn is new) Blood Pressure Blood Pressure Findings: Elevated blood pressure Blood Pressure Disposition: further management by hospitalist RANDAL Narrative The patient is an 83-year-old female who presented to the emergency department for an evaluation of rectal bleeding. The patient takes Coumadin because of atrial fibrillation. She was seen by her primary care physician and sent to the emergency department because of extensive rectal bleeding. The patient's physical exam was consistent with a large amount of clotted blood. There is no definite external source on my physical exam although the area was obscured with dark blood. The patient had no abdominal tenderness on palpation. I discussed the patient's laboratory and radiographic studies with her. At this time she does not appear to have any significant anemia. I discussed the patient's laboratory and radiographic studies with the on-call [facility] hospitalist group. They have agreed to evaluate the patient in the emergency department for further management disposition. The patient had elevated blood pressure initia lly but this does appear to be improving with just observation. The patient does have a history of diverticular disease. Impression & Plan Acute lower GI bleeding Discharge Plan Visit Data Chief Complaint: Rectal Bleed Stated Complaint: BLEEDING ED Provider: Salvador Zarate Discharge Problem: Acute lower GI bleeding Patient Disposition: Being Evaluated by Hospitalist Forms Stand Alone Forms: My [facility] Prescriptions Prescriptions: No Action multivitamin Tablet 1 tab PO DAILY RF: 0 atorvastatin [Lipitor] 80 mg tablet 80 mg PO DAILY RF: 0 metoprolol tartrate 100 mg tablet 100 mg PO BID RF: 0 lisinopril 20 mg tablet 20 mg PO BID RF: 0 clonidine HCl 0.2 mg tablet 0.2 mg PO BID RF: 0 ascorbic acid (vitamin C) [Vitamin C] 500 mg Tablet 500 mg PO DAILY RF: 0 omeprazole 20 mg capsule,delayed release(DR/EC) 20 mg PO DAILY RF: 0 digoxin [Digox] 125 mcg (0.125 mg) tablet 125 mcg PO Q OTHER DAY RF: 0 metronidazole [Rosadan] 0.75 % gel 1 applic TOPICAL BID RF: 0 Prolia 60 mg/mL Syringe 60 mg SUBCUT .Q6MO RF: 0 Caltrate 600 plus D 600 mg (1,500 mg)-800 unit Tablet,Chewable 1 tab PO DAILY RF: 0 magnesium oxide 400 mg magnesium Tablet 200 mg PO DAILY RF: 0 Referrals Referrals: José Vergara DO [Primary Care Provider] - The scribe's documentation has been prepared under my direction and personally reviewed by me in its entirety. I confirm that the note above accurately reflects all work, treatment, procedures, and medical decision making performed by me.
[2019-07-04 15:41] LABS: INR 2.3 (0.9-1.1); Partial Thromboplastin Ratio 1.2; Partial Thromboplastin Time 34.4 Seconds (21.0-31.0); Prothrombin Time 23.6 Seconds (9.0-12.0)
[2019-07-04 15:46] LABS: Alanine Aminotransferase 22 U/L (12-78); Albumin Level 3.3 gm/dl (3.4-5.0); Aspartate Aminotransferase 26 U/L (15-37); BUN Creatinine Ratio 17.8 (10-20); Blood Urea Nitrogen 17 mg/dl (7-18); Calcium 9.2 mg/dl (8.5-10.1); Carbon Dioxide 23 mmol/L (21-32); Chloride 106 mmol/L (98-107); Est GFR (African American) 65.4; Est GFR (Non-African American) 56.4; Glucose 115 mg/dl (70-99); Lipase 106 U/L (73-393); Sodium 138 mmol/L (136-145)
--- NOTE | 2019-07-04 15:46 | XRay Report ---
XR chest 1V portable, XR KUB/Abdomen 1 view HISTORY: 83 years-old Female GIB acute GI bleeding COMPARISON: Acute abdominal series radiographs and CT abdomen and pelvis 11/02/2016 TECHNIQUE: AP view of the chest with KUB radiograph FINDINGS: CHEST: Cardiac silhouette is enlarged, unchanged. Chronic reticular opacities suggestive of fibrotic changes . No pneumothorax, large pleural effusion, overt pulmonary edema or new airspace consolidation. Degen erative changes of the shoulders and spine. ORIF changes of the right humerus. Mild convex left curva ture of the lower thoracic spine. KUB: Bowel gas pattern is nonobstructive. Mild to moderate fecal retention. No pneumatosis or pneumoperito neum. No definite urolith. Degenerative changes of the spine, pelvis and hips. IMPRESSION: 1. Cardiomegaly without acute cardiopulmonary abnormality. 3. Chronic interstitial lung disease. 3. Nonobstructive bowel gas pattern without pneumoperitoneum. ACT 112: Negative or not required by law. The above report was generated using voice recognition software. It may contain grammatical, syntax o r spelling errors. Electronically signed by: Isaiah Hines M.D. 07/04/2019 3:45 PM
[2019-07-04 15:51] LABS: Albumin Globulin Ratio 0.7 (0.9-2); Alkaline Phosphatase 94 U/L (45-117); Globulin 4.7 gm/dl (2.5-4.0); Troponin I < 0.015 ng/ml (0-0.045)
[2019-07-04 15:52] LABS: Basophils # (auto) 0.04 K/uL (0-0.2); Basophils % (auto) 0.4 %; Eosinophils # (auto) 0.03 K/uL (0-0.5); Eosinophils % (auto) 0.3 %; Hematocrit (blood only) 37.1 % (37-47); Hemoglobin 12.1 g/dL (12.0-16.0); Immature Granulocytes # (auto) 0.02 K/uL (0.00-0.02); Immature Granulocytes % (auto) 0.2 %; Lymphocytes # (auto) 1.87 K/uL (1.2-3.4); Lymphocytes % (auto) 19.2 %; Mean Corpuscular Hemoglobin 33.6 pg (25-34); Mean Corpuscular Hgb Conc 32.6 g/dL (32-36); Mean Corpuscular Volume 103.1 fL (80-100); Mean Platelet Volume 11.1 fL (7.4-10.4); Monocytes # (auto) 0.82 K/uL (0.11-0.59); Monocytes % (auto) 8.4 %; Neutrophils # (auto) 6.96 K/uL (1.4-6.5); Neutrophils % (auto) 71.5 %; Platelet Count 284 K/uL (130-400); RDW Coefficient of Variation 13.5 % (11.5-14.5); RDW Standard Deviation 50.8 fL (36.4-46.3); White Blood Count 9.74 K/uL (4.8-10.8)
[2019-07-04] MEDS ORDERED: PHYTONADIONE 5 MG in SODIUM CHLORIDE 0.9% 50 ML IV ONE (17:30)
--- NOTE | 2019-07-04 17:45 | History & Physical Report ---
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 In ED patient remained hemodynamically stable, she was actually hypertensive. Her blood pressure upon my evaluation was 160/102. Lab work revealed stable H&H at 12.1 and 37.1, WBC 9.71, INR 2.3, BUN 17, creatinine 0.93, glucose 115, troponin WNL. Chest x-ray revealed cardiomegaly without acute cardiopulmonary disease, chronic interstitial lung disease. KUB revealed nonobstructive bowel gas pattern without pneumoperitoneum. Ddx: Lower diverticular GI bleed Admit to PCU Administer 5 mg IV vitamin K given continued lower GI bleeding IVF 75 cc/h Type and cross 2 units, hold Monitor H&H every 6 Consult GI - Dr. Kaminski Clear liquid diet per GI recommends watchful waiting with anticipation GIB to cease once coagulopathy corrected (2) Chronic atrial fibrillation: Rate and rhythm controlled with metoprolol and digoxin On warfarin 3 mg Sunday, 2 mg all other days Hold warfarin and give 5 mg vitamin K Repeat INR in a.m (3) History of CVA (cerebrovascular accident): No residual deficit On statin, Plavix, warfarin as outpatient Hold Plavix and warfarin in setting of lower GI bleed (4) HTN (hypertension): Patient significantly hypertensive in ED Continue oral antihypertensives cautiously with parameters On clonidine, lisinopril, metoprolol (5) HLD (hyperlipidemia): Continue statin (6) GERD (gastroesophageal reflux disease): Continue PPI (7) DVT prophylaxis: SCD/TEDS Disposition: Admit to PCU Follow-up: PCP Dr. Vergara upon discharge Patient was seen and examined in collaboration with Dr. Bernard, please see addendum History of Present Illness Chief Complaint: Bright red blood per rectum x 1 day. 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 She was in her usual state of health until this morning whenever she woke up went to move her bowels and noticed that she had bright red blood per rectum. She has had frequent bowel movements since this morning all with associated blood. She states she is passing, "clots." "It comes out whenever it wants to." She can pass clots without even passing any stool. She recalls having something similar to this in the past however it was much less severe and resolved on its own. She denies any fever, chills, sweats, lightheadedness, dizziness, syncope, chest pain, shortness of breath, palpitations, nausea, vomiting, diarrhea, abdominal pain. She elicits to decreased urination but denies any dysuria, increased urgency or hematuria. She has not had anything to eat or drink today due to, "spending too much time on the toilet." Up until yesterday though her appetite has been normal. She denies any associated weight gain or weight loss. She does have a family hist ory of colon cancer but her last colonoscopy was in 2015 which was normal per patient. In ED patient remained hemodynamically stable, she was actually hypertensive. Her blood pressure upon my evaluation was 160/102. Lab work revealed stable H&H at 12.1 and 37.1, WBC 9.71, INR 2.3, BUN 17, creatinine 0.93, glucose 115, troponin WNL. Chest x-ray revealed cardiomegaly without acute cardiopulmonary disease, chronic interstitial lung disease. KUB revealed nonobstructive bowel gas pattern without pneumoperitoneum. Allergies Allergy/AdvReac Type Severity Reaction Status Date / Time pneumococcal vaccine Allergy Mild DIZZINESS Verified 07/04/19 16:03 AND FELT LOUSY Sulfa (Sulfonamide Allergy Unknown high Verified 07/04/19 16:03 Antibiotics) fever/ rash aspirin AdvReac Unknown epistaxis Verified 07/04/19 16:03 Home Medications Home Medications Medication Instructions Recorded Confirmed Type ascorbic acid (vitamin C) [Vitamin 500 mg PO DAILY 07/04/19 07/04/19 History C] atorvastatin [Lipitor] 80 mg PO DAILY 07/04/19 07/04/19 History calcium carbonate-vitamin D3 1 tab PO DAILY 07/04/19 07/04/19 History [Caltrate 600 plus D] clonidine HCl 0.2 mg PO BID 07/04/19 07/04/19 History clopidogrel [Plavix] 75 mg PO DAILY 07/04/19 07/04/19 History denosumab [Prolia] 60 mg SUBCUT .Q6MO 07/04/19 07/04/19 History digoxin [Digox] 125 mcg PO Q OTHER DAY 07/04/19 07/04/19 History lisinopril 20 mg PO BID 07/04/19 07/04/19 History magnesium oxide 200 mg PO DAILY 07/04/19 07/04/19 History metoprolol tartrate 100 mg PO BID 07/04/19 07/04/19 History metronidazole [Rosadan] 1 applic TOPICAL BID 07/04/19 07/04/19 History multivitamin 1 tab PO DAILY 07/04/19 07/04/19 History omeprazole 20 mg PO DAILY 07/04/19 07/04/19 History warfarin 2 mg PO SUTUTHSA 07/04/19 07/04/19 History warfarin 3 mg PO MOWEFR 07/04/19 07/04/19 History Past Med/Surg History Medical History (Updated 07/04/19 @ 17:59 by Lissa Padron PA-C) Chronic atrial fibrillation Diverticulosis GERD (gastroesophageal reflux disease) History of CVA (cerebrovascular accident) L MCA CVA History of ischemic bowel disease (Chronic) HLD (hyperlipidemia) HTN (hypertension) Osteoporosis (Inactive) Surgical History H/O exploratory laparotomy (Inactive) "H/O Volvulus, adhesions and ischemic bowel/appendix" H/O laminectomy (Inactive) H/O shoulder surgery (Inactive) Hx of cardiac cath (Inactive) Hx of tonsillectomy (Inactive) S/P ELEN-BSO (Inactive) Family History Mother Colorectal cancer Father Diabetes Brother Diabetes Social History (Updated 07/04/19 @ 17:55 by Lissa Padron PA-C) Communication Ability: Effective marital status: / Current Living Situation: Alone Feels Safe at Home: Yes Smoking Status: Never smoker Hx Alcohol Use: Yes Alcohol type: wine Alcohol type Comment: daily Hx Substance Use: No Review of Systems Review of Systems: All systems reviewed & are unremarkable except as noted in HPI & below Physical Exam Physical Exam: Const: WD/WN, elderly, fraile, F, vitals as above, NAD, sitting up in bed, pleasant, conversing easily Head: Normocephalic, Atraumatic Eyes: PERRL, conjunctivae normal, anicteric sclerae ENMT: external ear and nose normal, oropharynx normal, dry mucous membranes Neck: trachea midline, no thyromegaly normal visual inspection Respiratory: normal respiratory effort, lungs clear to auscultation, no wheeze, rales, rhonchi. Normal insp/exp effort, no accessory muscle use Cardiovascular: IRR/IRR, no murmur, no edema Vessels: no JVD or carotid bruit Chest: normal inspection of chest Abdomen: petite, flat abd, normal bowel sounds, soft, nontender, no hepatosplenomegaly Musculoskeletal: no cyanosis or clubbing, extremities motor strength 5/5 Skin: no rashes, warm and dry mild turgor Neurologic: PERRL, EOMI, accommodation nl, no face palsy, no dysarthria CN's II-XI intact bilaterally and moves all extremities Psychiatric: A+Ox3, euthymic affect Lymphatic: no cervical or axillary lymphadenopathy : deferred Results & Data Vital Signs (Past 12 Hours) Vital Signs Temp Pulse Resp BP Pulse Ox 07/04/19 14:48 36.5 C 86 18 210/133 H 98 Laboratory Results Short CBC 07/04/19 Range/Units 15:10 WBC 9.74 (4.8-10.8) K/uL Hgb 12.1 (12.0-16.0) g/dL Hct 37.1 (37-47) % Plt Count 284 (130-400) K/uL BMP 07/04/19 15:10 Sodium 138 Potassium 4.0 Chloride 106 Carbon Dioxide 23 BUN 17 Creatinine 0.93 Glucose 115 H Calcium 9.2 Cardiac Enzymes 07/04/19 Range/Units 15:10 Troponin I < 0.015 (0-0.045) ng/ml Liver Function 07/04/19 Range/Units 15:10 Total Bilirubin 1.0 (0.2-1) mg/dl AST 26 (15-37) U/L ALT 22 (12-78) U/L Alkaline Phosphatase 94 (45-117) U/L Albumin 3.3 L (3.4-5.0) gm/dl Diagnostic Findings CXR/KUB: FINDINGS: CHEST: Cardiac silhouette is enlarged, unchanged. Chronic reticular opacities sugg estive of fibrotic changes. No pneumothorax, large pleural effusion, overt pulmonary edema or new airspace consolidation. Degenerative changes of the shoulders and spine. ORIF changes of the right humerus. Mild convex left curvature of the lower thoracic spine. KUB: Bowel gas pattern is nonobstructive. Mild to moderate fecal retention. No pneumatosis or pneumoperitoneum. No definite urolith. Degenerative changes of the spine, pelvis and hips. IMPRESSION: 1. Cardiomegaly without acute cardiopulmonary abnormality. 3. Chronic interstitial lung disease. 3. Nonobstructive bowel gas pattern without pneumoperitoneum. ECG Rate (beats per minute): 80 Rhythm: atrial fibrillation Findings: + prolonged QT (qtc 459ms) Code Status & VTE Plan Code Status Full VTE Prophylaxis Plan VTE Prophylaxis will be ordered: Yes Reason for no VTE drug order: Contraindicated Supervising Physician Co-Signing Physician Notes Attending addendum The patient was seen and examined in emergency room She was admitted with acute lower GI bleed Painless bleeding since this morning associated with loose stool Denies any other symptoms On examination No apparent distress at rest Hemodynamically stable but noted to have a very high blood pressure Chest-clear to auscultate bilaterally Heart-S1-S2 irregular Abdomen-mildly distended, soft, nontender, bowel sounds present Extremities-negative for any edema 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 Generally weak, no focal sensory or motor deficit Admission labs and imaging studies reviewed Has bright red rectal bleeding without any abdominal pain Likely diagnosis diverticular bleed/hemorrhoid Check H&H GI consult Reverse anticoagulation Agree with assessment and plan as outlined above by EVONNE Yao Dr
[2019-07-04] MEDS: SODIUM CHLORIDE 0.9% 1000ML 1,000 ML IV SCH (18:46)
[2019-07-04] MEDS ORDERED: cloNIDine HCL 0.1 MG TAB ONE (19:17)
[2019-07-04] MEDS: lisinopriL 20 MG TAB PO SCH ×2 (19:25→23:15)
[2019-07-04] MEDS: CLONIDINE HCL 0.2 MG PO SCH ×2 (19:25→23:15)
[2019-07-04] MEDS ORDERED: SODIUM CHLORIDE 0.9% 250 ML IV PRN (20:42)
[2019-07-04] MEDS ORDERED: ALUMINUM/MAGNESIUM SUSP 30 ML UDC PO PRN (20:42)
[2019-07-04] MEDS ORDERED: POLYETHYLENE (MIRALAX) 17 GM PACK PO PRN (20:42)
[2019-07-04] MEDS ORDERED: ONDANSETRON INJ 2 MG/ML 2 ML VIAL IV PRN (20:42)
[2019-07-04] MEDS ORDERED: ACETAMINOPHEN 325 MG TAB PO PRN (20:42)
[2019-07-04 22:23] LABS: Hematocrit (blood only) 27.5 % (37-47)
[2019-07-04] MEDS: METOPROLOL TARTRATE 100 MG TAB PO SCH (23:15)
[2019-07-05 04:32] LABS: Hematocrit (blood only) 25.3 % (37-47); Hemoglobin 8.5 g/dL (12.0-16.0); Mean Corpuscular Hgb Conc 33.6 g/dL (32-36); Mean Corpuscular Volume 104.1 fL (80-100); Mean Platelet Volume 10.7 fL (7.4-10.4); Platelet Count 228 K/uL (130-400); RDW Coefficient of Variation 13.6 % (11.5-14.5); RDW Standard Deviation 50.9 fL (36.4-46.3); Red Blood Count 2.43 M/uL (4.2-5.4); White Blood Count 7.47 K/uL (4.8-10.8)
[2019-07-05 04:43] LABS: BUN Creatinine Ratio 28.9 (10-20); Calcium 7.8 mg/dl (8.5-10.1); Creatinine Clr Calc Pharmacy 47.2 ml/min; Est GFR (African American) 93.6; Est GFR (Non-African American) 80.7; Potassium 3.7 mmol/L (3.5-5.1)
[2019-07-05 04:45] LABS: INR 1.5 (0.9-1.1); Prothrombin Time 15.5 Seconds (9.0-12.0)
[2019-07-05] MEDS: SODIUM CHLORIDE 0.9% 1000ML 1,000 ML IV SCH ×2 (06:11→19:28)
[2019-07-05 10:01] LABS: Hemoglobin 8.3 g/dL (12.0-16.0)
[2019-07-05] MEDS: lisinopriL 20 MG TAB PO SCH (11:15)
[2019-07-05] MEDS: CLONIDINE HCL 0.2 MG PO SCH (11:18)
--- NOTE | 2019-07-05 11:53 | Gastrointestinal Consultation ---
Date of Consultation July 05, 2019 History of Present Illness Attending Physician: Aida Jimenez MD 83 yo female with PMH sig for Afib on coumadin, h/o CVA on Plavix, h/o volvulus sp exp lap now admit with mult episodes of painless large volume BRBPR since yesterday. On admit, she was hypertensive and hgb 12. She received vit K with correction of INR. Overnight, hgb fell to 8 and she was intermittently hypotensive with systolic BP 90's. Her BP meds (clonidine, betablocker) were held. She has had no further bleeding since admit. She is now hypertensive and BP meds have been resumed. No NSAIDs, on PPI once daily.. No upper GI symptoms. Remote colonoscopy. PE: comfortable, pleasant CV: IRIR Resp: CTA Abd: soft NT Extrem: no edema A/P: Afib with h/o CVA on coumadin/plavix LGIB, presumably diverticular - Would prefer conservative care/observation - will defer cscopy and follow for recurrent bleeding now that anti-coag therapy and anti-plt therapy has been held. Continue clears today, may advance to full liquids tomorrow if no further bleeding. Vol resuscitation per primary service; transfuse for goal hgb 7. She is at high risk for recurrent CVA - anticipate resuming coumadin and Plavix if has no bleeding for 48 hours. Allergies Allergy/AdvReac Type Severity Reaction Status Date / Time pneumococcal vaccine Allergy Mild DIZZINESS Verified 07/04/19 16:03 AND FELT LOUSY Sulfa (Sulfonamide Allergy Unknown high Verified 07/04/19 16:03 Antibiotics) fever/ rash aspirin AdvReac Unknown epistaxis Verified 07/04/19 16:03 Home Medications Home Medications Medication Instructions Recorded Confirmed Type ascorbic acid (vitamin C) [Vitamin 500 mg PO DAILY 07/04/19 07/04/19 History C] atorvastatin [Lipitor] 80 mg PO DAILY 07/04/19 07/04/19 History calcium carbonate-vitamin D3 1 tab PO DAILY 07/04/19 07/04/19 History [Caltrate 600 plus D] clonidine HCl 0.2 mg PO BID 07/04/19 07/04/19 History clopidogrel [Plavix] 75 mg PO DAILY 07/04/19 07/04/19 History denosumab [Prolia] 60 mg SUBCUT .Q6MO 07/04/19 07/04/19 History digoxin [Digox] 125 mcg PO Q OTHER DAY 07/04/19 07/04/19 History lisinopril 20 mg PO BID 07/04/19 07/04/19 History magnesium oxide 200 mg PO DAILY 07/04/19 07/04/19 History metoprolol tartrate 100 mg PO BID 07/04/19 07/04/19 History metronidazole [Rosadan] 1 applic TOPICAL BID 07/04/19 07/04/19 History multivitamin 1 tab PO DAILY 07/04/19 07/04/19 History omeprazole 20 mg PO DAILY 07/04/19 07/04/19 History warfarin 2 mg PO SUTUTHSA 07/04/19 07/04/19 History warfarin 3 mg PO MOWEFR 07/04/19 07/04/19 History Patient History Medical History (Updated 07/04/19 @ 17:59 by Lissa Padron PA-C) Chronic atrial fibrillation Diverticulosis GERD (gastroesophageal reflux disease) History of CVA (cerebrovascular accident) L MCA CVA History of ischemic bowel disease (Chronic) HLD (hyperlipidemia) HTN (hypertension) Osteoporosis (Inactive) Surgical History H/O exploratory laparotomy (Inactive) "H/O Volvulus, adhesions and ischemic bowel/appendix" H/O laminectomy (Inactive) H/O shoulder surgery (Inactive) Hx of cardiac cath (Inactive) Hx of tonsillectomy (Inactive) S/P ELEN-BSO (Inactive) Family History Mother Colorectal cancer Father Diabetes Brother Diabetes Social History (Updated 07/04/19 @ 17:55 by Lissa Padron PA-C) Preferred Language: Jordanian Communication Ability: Effective 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
[2019-07-05] MEDS ORDERED: IOVERSOL 100ml IV PRN (12:17)
--- NOTE | 2019-07-05 12:36 | CT Scan Report ---
CT abd pelvis IV con only CLINICAL HISTORY: 83 years-old Female presenting with diverticulitis, possible diverticular bleed, ga stric intestinal hemorrhage. TECHNIQUE: Multidetector CT of the abdomen and pelvis was performed after the administration of intra venous contrast. IV contrast: 93 mL of Optiray 320. One or more dose lowering techniques were used co nsistent with the principles of ALARA (as low as reasonably achievable), including automatic exposure control, mA or kV adjustment to individual patient size, and/or use of iterative reconstruction. COMPARISON: 11/02/2016. CT DOSE (mGy.cm): The estimated cumulative dose is 240.51 mGy.cm. FINDINGS: Undercar Specialist topogram: Unremarkable. Lung bases: Right atrial enlargement. Coronary artery, aortic valve, and mitral annular calcification . No pericardial or pleural effusion. Extensive reticular opacities at the lung bases without evidenc e of honeycombing. Mosaic attenuation. Nodular interlobular septal thickening may be present. Liver: Normal morphology. No liver lesion. Patent hepatic vasculature. Biliary: No intrahepatic or extrahepatic biliary ductal dilatation. Normal gallbladder. Pancreas: Moderate parenchymal atrophy. Spleen: Normal. Adrenal glands: Normal. Kidneys and ureters: Cyst noted at the upper pole of the right kidney. No hydronephrosis or nephrolit hiasis. Extrarenal pelvises with mild bilateral urothelial thickening. Ureters nondistended. Bladder: Circumferential bladder wall thickening. Pelvic organs: Uterus surgically absent. No adnexal masses. Bowel: Diverticulosis of the sigmoid and distal descending colon with wall thickening of the mid to d istal sigmoid colon. No pericolonic inflammatory change. The appendix is not visualized. No bowel obs truction. Peritoneal cavity: No free fluid or intraperitoneal gas. Lymph nodes: No enlarged lymph nodes in the abdomen or pelvis. Vasculature: Atherosclerosis of the abdominal aorta, which is normal in caliber. Mild tortuosity of t he iliac vessels. Abdominal wall: Small fat-containing inguinal hernias. Musculoskeletal: Degenerative changes of the spine. Osteopenia. IMPRESSION: 1. 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 No convincing evidence of diverticulitis. 2. No extravasation of intravenous contrast into the bowel lumen to suggest a site of gastrointestin al hemorrhage, however, diverticulosis is the likely culprit. 3. Circumferential bladder wall thickening could either represent cystitis or chronic functional karla dder outlet obstruction. 4. Chronic lung disease as on prior exam. ACT 112: Negative or not required by law. Electronically signed by: Valente Corrales M.D. 07/05/2019 12:34 PM
[2019-07-05 15:23] LABS: Hematocrit (blood only) 24.8 % (37-47); Hemoglobin 8.3 g/dL (12.0-16.0)
[2019-07-05 15:26] LABS: INR 1.3 (0.9-1.1); Prothrombin Time 13.6 Seconds (9.0-12.0)
[2019-07-05] MEDS ORDERED: DIGOXIN 0.125 MG TAB PO SCH (16:00)
[2019-07-05] MEDS: cloNIDine HCL 0.1 MG TAB PO SCH ×2 (16:27→20:28)
[2019-07-05] MEDS: METOPROLOL TARTRATE 100 MG TAB PO SCH ×2 (16:28→20:28)
--- NOTE | 2019-07-05 18:04 | Hospitalist Progress Note ---
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 No convincing evidence of diverticulitis. Appreciate input from GI, no role of colonoscopy recommends to hold off anticoagulation Monitor clinically (2) Chronic atrial fibrillation: Rate and rhythm controlled with metoprolol and digoxin On warfarin 3 mg Sunday, 2 mg all other days Hold warfarin and give 5 mg vitamin K INR 1.3 (3) History of CVA (cerebrovascular accident): No residual deficit On statin, Plavix, warfarin as outpatient Hold Plavix and warfarin in setting of lower GI bleed (4) HTN (hypertension): Patient significantly hypertensive in ED Continue oral antihypertensives cautiously with parameters On clonidine, lisinopril, metoprolol (5) HLD (hyperlipidemia): Continue statin (6) GERD (gastroesophageal reflux disease): Continue PPI (7) DVT prophylaxis: SCD/TEDS Disposition: Admit to PCU Follow-up: PCP Dr. Vergara upon discharge Admission and Anticipated Discharge Date Admission Date: July 04, 2019 Subjective Episode of painless bloody bowel movement overnight, and once this morning No complaint of shortness of breath no dizzy spell lightheadedness Vitals remained stable Hemoglobin Noted12-> 9-> 8.3 No fever no abdominal pain no nausea vomiting No indication for blood transfusion Review of Systems Review of Systems: All systems reviewed & are unremarkable except as noted in HPI & below Gastrointestinal: + blood in stools; no vomiting, no coffee ground emesis and no dysphagia Physical Exam Constitutional: WD/WN, vitals as above Eyes: PERRL, conjunctivae normal, anicteric sclerae ENMT: external ear and nose normal, oropharynx normal Neck: trachea midline, no thyromegaly Respiratory: normal respiratory effort, lungs clear to auscultation Cardiovascular: RRR, no murmur, no edema Gastrointestinal (Abdomen): normal bowel sounds, soft, nontender, no hepatosplenomegaly Musculoskeletal: no cyanosis or clubbing, extremities motor strength 5/5 Skin: no rashes, warm and dry Neurologic: PERRL, EOMI, accommodation nl, no face palsy, no dysarthria Psychiatric: A+Ox3, euthymic affect Results & Data ([facility]) Vital Signs (Past 12 Hours) Vital Signs Temp Pulse Pulse Pulse Resp BP Pulse Ox 07/05/19 16:50 84 07/05/19 15:33 37.1 C 85 16 133/80 99 07/05/19 12:03 37 C 96 H 18 121/74 99 07/05/19 07:44 36.9 C 60 18 153/90 H 100
[2019-07-05 21:05] LABS: Appearance Urine Cloudy (Clear); Bacteria Urine Automated 4+ (Negative); Bilirubin Urine Negative (Negative); Blood Urine 3+ (Negative); Color Urine Yellow; Epithelial Cell Urine Auto 0-5 /lpf (0-5); Glucose Urine UA Negative (Negative); Ketones Urine Trace (Negative); Leukocyte Esterase Urine 2+ (Negative); Nitrite Urine Positive (Negative); Protein Urine Negative (Negative); Specific Gravity Urine 1.037 (1.000-1.030); Urobilinogen Urine Negative (Negative); pH Urine 5.5 (4.5-7.5)
[2019-07-05 21:12] LABS: RBC Urine Automated 0-4 /hpf (0-4)
[2019-07-06 07:03] LABS: Hematocrit (blood only) 22.5 % (37-47); Hemoglobin 7.4 g/dL (12.0-16.0); Mean Corpuscular Hemoglobin 33.8 pg (25-34); Mean Corpuscular Hgb Conc 32.9 g/dL (32-36); Mean Corpuscular Volume 102.7 fL (80-100); Mean Platelet Volume 10.7 fL (7.4-10.4); Platelet Count 198 K/uL (130-400); RDW Coefficient of Variation 13.9 % (11.5-14.5); RDW Standard Deviation 51.4 fL (36.4-46.3); Red Blood Count 2.19 M/uL (4.2-5.4); White Blood Count 4.74 K/uL (4.8-10.8)
[2019-07-06 07:11] LABS: INR 1.3 (0.9-1.1); Prothrombin Time 13.6 Seconds (9.0-12.0)
[2019-07-06 07:39] LABS: Calcium 7.5 mg/dl (8.5-10.1); Creatinine Clr Calc Pharmacy 51.8 ml/min; Est GFR (African American) 96.5; Est GFR (Non-African American) 83.2; Potassium 3.5 mmol/L (3.5-5.1)
[2019-07-06] MEDS: METOPROLOL TARTRATE 100 MG TAB PO SCH ×2 (08:41→20:14)
[2019-07-06] MEDS: SODIUM CHLORIDE 0.9% 1000ML 1,000 ML IV SCH (08:41)
[2019-07-06] MEDS: cloNIDine HCL 0.1 MG TAB PO SCH ×2 (08:42→20:38)
[2019-07-06] MEDS: cefTRIAXone SODIUM 1,000 MG in DEXTROSE 5% 50 ML IV SCH (10:51)
--- NOTE | 2019-07-06 11:04 | Gastroenterology Progress Note ---
Date of Service July 06, 2019 Assessment & Plan Admission and Anticipated Discharge Date Admission Date: July 04, 2019 Subjective Nurses notes state no bowel movement this am. BP has recovered - hypertensive/normotensive overnight. Hgb 8 yesterday, currently [address] ordered by PCP for indication of "bleeding" shows tics, no extrav of contrast. A/P: LGIB, probably diverticular. - Full liquids today. X fuse for Hgb < 7; ok to check q 12. Plan to d/c tomorrow if no further bleeding. OK to resume plavx, coumadin on d/c. Please d/c on iron /folate supplements with f/u and CBC check by PCP. No need for outpt GI follow up. Results & Data ([facility]) Vital Signs (Past 12 Hours) Vital Signs Temp Pulse Resp BP Pulse Ox 07/06/19 07:50 37.4 C 73 18 137/82 99 07/06/19 03:06 36.4 C L 80 19 150/93 H 100 07/05/19 23:43 36.8 C 77 20 117/61 99
--- NOTE | 2019-07-06 12:32 | Hospitalist Progress Note ---
Date of Service July 06, 2019 Assessment & Plan (1) Acute lower GI bleeding: LGIB, probably diverticular. Appreciate input from GI, no role of colonoscopy recommends to advance diet to - Full liquids today. H&H Q12 , repeat lab at 6 pm transfuse for Hgb < 7; Plan to d/c tomorrow if no further bleeding. OK to resume plavx, coumadin on d/c. will be d/c on iron /folate supplements with f/u and CBC check by PCP. No need for outpt GI follow up. 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 Probable diverticular bleed in the setting of coagulopathy: On Coumadin and Plavix CT abdomen pelvis: Evidence of chronic diverticular disease 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 No convincing evidence of diverticulitis. (2) Acute blood loss anemia: Due to above, Hemoglobin drop noted from 12 on 07/04/2019-> 9-> 8 today No further episode of GI bleed, continue to monitor H&H every 12 hours Transfuse for hemoglobin less than 7 (3) Chronic atrial fibrillation: Rate and rhythm controlled with metoprolol and digoxin On warfarin 3 mg Sunday, 2 mg all other days Hold warfarin and give 5 mg vitamin K INR 1.3 today, Continue monitor, Coumadin will be resumed on discharge (4) History of CVA (cerebrovascular accident): No residual deficit On statin, Plavix, warfarin as outpatient Hold Plavix and warfarin in setting of lower GI bleed No further episode of GI bleed overnight, will monitor patient in telemetry Anticoagulation warfarin and Plavix can be resumed on discharge per GI (5) HTN (hypertension): Blood pressure stable On clonidine, lisinopril, metoprolol (6) HLD (hyperlipidemia): Continue statin (7) GERD (gastroesophageal reflux disease): Continue PPI (8) DVT prophylaxis: SCD/TEDS Disposition: Monitor in PCU Plan for discharge home tomorrow if no further episode of GI bleed Follow-up: PCP Dr. Vergara upon discharge Admission and Anticipated Discharge Date Admission Date: July 04, 2019 Anticipated date of discharge: 07/07/19 Subjective No further episode of bowel movement, No bright red blood per rectum Feels fine, Vital stable, denies of any episode of dizzy spell or lightheadedness, no shortness of breath or dyspnea on exertion No complaint of abdominal pain, no nausea vomiting Diet advanced to full liquid Review of Systems Review of Systems: All systems reviewed & are unremarkable except as noted in HPI & below Gastrointestinal: no abdominal pain, no nausea, no vomiting, no diarrhea/loose stools and no blood in stools Physical Exam Constitutional: WD/WN, vitals as above Eyes: PERRL, conjunctivae normal, anicteric sclerae ENMT: external ear and nose normal, oropharynx normal Neck: trachea midline, no thyromegaly Respiratory: normal respiratory effort, lungs clear to auscultation Cardiovascular: RRR, no murmur, no edema Gastrointestinal (Abdomen): normal bowel sounds, soft, nontender, no hepatosplenomegaly Musculoskeletal: no cyanosis or clubbing, extremities motor strength 5/5 Skin: no rashes, warm and dry Neurologic: PERRL, EOMI, accommodation nl, no face palsy, no dysarthria Psychiatric: A+Ox3, euthymic affect Results & Data ([facility]) Vital Signs (Past 12 Hours) Vital Signs Temp Pulse Resp BP Pulse Ox 07/06/19 11:40 36.8 C 84 18 118/69 98 07/06/19 07:50 37.4 C 73 18 137/82 99 07/06/19 03:06 36.4 C L 80 19 150/93 H 100 07/05/19 23:43 36.8 C 77 20 117/61 99
[2019-07-06 17:51] LABS: Hematocrit (blood only) 25.8 % (37-47); Hemoglobin 8.3 g/dL (12.0-16.0)
[2019-07-06] MEDS: metroNIDAZOLE 0.75% TOPICAL GEL 45 GM TUBE TOP SCH (20:38)
[2019-07-06] MEDS: lisinopriL 20 MG TAB PO SCH (20:38)
[2019-07-07 06:42] LABS: Hemoglobin 8.4 g/dL (12.0-16.0)
[2019-07-07 06:57] LABS: INR 1.2 (0.9-1.1); Prothrombin Time 12.4 Seconds (9.0-12.0)
[2019-07-07] MEDS: ATORVASTATIN 40 MG TAB PO SCH (08:26)
[2019-07-07] MEDS: cloNIDine HCL 0.1 MG TAB PO SCH ×2 (08:26→20:46)
[2019-07-07] MEDS: FERROUS FUMARATE/ASCORBIC ACID 65 MG CAPCR PO SCH (08:26)
[2019-07-07] MEDS: lisinopriL 20 MG TAB PO SCH ×2 (08:26→20:46)
[2019-07-07] MEDS: MULTIVITAMIN TAB PO SCH (08:27)
[2019-07-07] MEDS: MAGNESIUM OXIDE 400 MG TAB PO SCH (08:27)
[2019-07-07] MEDS: CALCIUM 600MG + VIT D 400 IU TAB PO SCH (08:27)
[2019-07-07] MEDS: ASCORBIC ACID 500 MG TAB PO SCH (08:27)
[2019-07-07] MEDS: FOLIC ACID 1 MG TAB PO SCH (08:27)
[2019-07-07] MEDS: metroNIDAZOLE 0.75% TOPICAL GEL 45 GM TUBE TOP SCH ×2 (08:28→20:46)
[2019-07-07] MEDS: cefTRIAXone SODIUM 1,000 MG in DEXTROSE 5% 50 ML IV SCH (10:29)
--- NOTE | 2019-07-07 12:04 | Electrocardiogram Report ---
Test Reason : Blood Pressure : / mmHG Vent. Rate : 080 BPM Atrial Rate : 108 BPM P-R Int : 000 ms QRS Dur : 082 ms QT Int : 398 ms P-R-T Axes : 000 002 012 degrees QTc Int : 459 ms Atrial fibrillation Possible Anterior infarct , age undetermined Abnormal ECG When compared with ECG of 04-NOV-2016 07:16, No significant change Confirmed by Jossue Weeks ([id number]) on 07/07/2019 12:04:23 PM Referred By: José Vergara Confirmed By:Jossue Weeks
--- NOTE | 2019-07-07 12:13 | Hospitalist Progress Note ---
Date of Service July 07, 2019 Assessment & Plan (1) Acute lower GI bleeding: LGIB, probably diverticular. GI bleed has resolved, Patient had 1 dark bowel movement yesterday possible from old blood No hemodynamic instability, hemoglobin is stable at 8.4 Appreciate input from GI, no role of colonoscopy Patient has tolerated full liquid diet, advanced to solid today, Plan to discharge home today afternoon if patient is able to tolerate solid, and no further episode of GI bleed/blood in stool Patient is instructed to resume plavx, coumadin tomorrow 07/08/2019 will be d/c on iron /folate supplements with f/u lab work: CBC check by PCP. No need for outpt GI follow up. 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 No convincing evidence of diverticulitis. No further episode of active GI bleed in the last 48 hours/over the weekend (2) Acute blood loss anemia: Due to above, Hemoglobin drop noted from 12 on 07/04/2019-> 9-> 8 No further episode of GI bleed, Hemoglobin stayed stable at 8.4 Patient will be discharged with iron supplement and folic acid Instructed to avoid NSAIDs Will be continued with Plavix for prior history of CVA Repeat lab work: CBC in 1 week to monitor anemia (3) Chronic atrial fibrillation: Patient of bradycardia noted over telemetry Heart rate as low as 30s at 9:16 AM this morning, patient asymptomatic Patient is on metoprolol 100 mg twice daily,/and digoxin DC digoxin, patient will be discharged on beta-marva only Will need outpatient ZIO patch monitoring to assess for tachybradycardia syndrome Not had any episode of palpitation dizzy spell lightheadedness during this hospital stay Will schedule cardiology follow-up in the clinic Coumadin was kept on hold on admission secondary to GI bleed Will be discharged home today Resume Coumadin with prior dose starting from tomorrow 07/08/2019 On warfarin 3 mg Sunday, 2 mg all other days (4) History of CVA (cerebrovascular accident): No residual deficit On statin, Plavix, warfarin as outpatient Plavix and warfarin was kept on hold in setting of lower GI bleed No further episode of GI bleed overnight, Anticoagulation warfarin and Plavix can be resumed on discharge (5) HTN (hypertension): Blood pressure stable On clonidine, lisinopril, metoprolol (6) HLD (hyperlipidemia): Continue statin (7) GERD (gastroesophageal reflux disease): Continue PPI (8) DVT prophylaxis: SCD/TEDS Disposition: expected to be discharged home Follow-up: PCP Dr. Vergara upon discharge Admission and Anticipated Discharge Date Admission Date: July 04, 2019 Anticipated date of discharge: 07/07/19 Subjective Had an uneventful night, had one bowel movement last night with dark blood Finished full liquid breakfast, no abdominal pain, no nausea vomiting Ambulating independently no dizzy spell or lightheadedness Hemoglobin stayed stable at 8.4 Eager to be discharged home today Review of Systems Review of Systems: All systems reviewed & are unremarkable except as noted in HPI & below Constitutional: no fever and no chills Respiratory: no cough, no dyspnea and no dyspnea on exertion Cardiovascular: no chest pain, no dyspnea, no dyspnea on exertion, no orthopnea, no palpitations, no lightheadedness and no syncope Gastrointestinal: + blood in stools; no abdominal pain, no heartburn, no nausea, no vomiting, no coffee ground emesis and no hematemesis Physical Exam Constitutional: WD/WN, vitals as above Eyes: PERRL, conjunctivae normal, anicteric sclerae ENMT: external ear and nose normal, oropharynx normal Neck: trachea midline, no thyromegaly Respiratory: normal respiratory effort, lungs clear to auscultation Cardiovascular: RRR, no murmur, no edema Gastrointestinal (Abdomen): normal bowel sounds, soft, nontender, no hepatosplenomegaly Musculoskeletal: no cyanosis or clubbing, extremities motor strength 5/5 Skin: no rashes, warm and dry Neurologic: PERRL, EOMI, accommodation nl, no face palsy, no dysarthria Psychiatric: A+Ox3, euthymic affect Results & Data ([facility]) Vital Signs (Past 12 Hours) Vital Signs Temp Pulse Resp BP Pulse Ox 07/07/19 11:19 36.7 C 82 17 152/85 H 98 03/09/20 07:11 36.8 C 83 17 164/82 H 100 07/07/19 02:54 36.4 C L 77 18 156/87 H 99
[2019-07-07] MEDS: CIPROFLOXACIN 500 MG TAB PO SCH ×2 (12:36→20:46)
--- NOTE | 2019-07-07 13:05 | Cardiology Consultation ---
Date of Consultation July 07, 2019 Assessment & Plan (1) Chronic atrial fibrillation: (2) Acute lower GI bleeding: (3) Bradycardia: At this point I would recommend that we continue to hold the metoprolol and digoxin while the patient remains on telemetry. We will reassess her tomorrow after she has been off these medications for for over 24 hours. I did discuss with the patient the potential need for pacemaker. She is willing to stay in the hospital for further monitoring. History of Present Illness Attending Physician: Aida Jimenez MD History of Present Illness This is a pleasant 83-year-old female with the past history as outlined below. She was admitted earlier this week with diverticular bleeding. That problem has resolved. On the telemetry, she has been having slow heart rates which at times while awake are in the 30 bpm range. These heart rates are asymptomatic. She has been on a combination of metoprolol and digoxin which have been held and this morning she had additional slow heart rates. She has no cardiac complaints. She denies chest pain or shortness of breath. She has had no dizziness, lightheadedness, syncope or presyncope. Past medical history: 1.Longstanding hypertension with hypertensive heart disease. 2.Moderate left ventricular hypertroph with moderate MR and moderate TR 3.Chronic atrial fibrillation on chronic anticoagulation. 4.History of left middle cerebral artery CVA in September 2016 with initial diagnosis of atrial fibrillation. 5. Dyslipidemia, aortic atherosclerosis - on statin Allergies Allergy/AdvReac Type Severity Reaction Status Date / Time pneumococcal vaccine Allergy Mild DIZZINESS Verified 07/04/19 16:03 AND FELT LOUSY Sulfa (Sulfonamide Allergy Unknown high Verified 07/04/19 16:03 Antibiotics) fever/ rash aspirin AdvReac Unknown epistaxis Verified 07/04/19 16:03 Home Medications Home Medications Medication Instructions Recorded Confirmed Type ascorbic acid (vitamin C) [Vitamin 500 mg PO DAILY 07/04/19 07/04/19 History C] atorvastatin [Lipitor] 80 mg PO DAILY 07/04/19 07/04/19 History calcium carbonate-vitamin D3 1 tab PO DAILY 07/04/19 07/04/19 History [Caltrate 600 plus D] clonidine HCl 0.2 mg PO BID 07/04/19 07/04/19 History clopidogrel [Plavix] 75 mg PO DAILY 07/04/19 07/04/19 History denosumab [Prolia] 60 mg SUBCUT .Q6MO 07/04/19 07/04/19 History digoxin [Digox] 125 mcg PO Q OTHER DAY 07/04/19 07/04/19 History lisinopril 20 mg PO BID 07/04/19 07/04/19 History magnesium oxide 200 mg PO DAILY 07/04/19 07/04/19 History metoprolol tartrate 100 mg PO BID 07/04/19 07/04/19 History metronidazole [Rosadan] 1 applic TOPICAL BID 07/04/19 07/04/19 History multivitamin 1 tab PO DAILY 07/04/19 07/04/19 History omeprazole 20 mg PO DAILY 07/04/19 07/04/19 History warfarin 2 mg PO SUTUTHSA 07/04/19 07/04/19 History warfarin 3 mg PO MOWEFR 07/04/19 07/04/19 History Patient History Medical History Chronic atrial fibrillation Diverticulosis GERD (gastroesophageal reflux disease) History of CVA (cerebrovascular accident) L MCA CVA History of ischemic bowel disease (Chronic) HLD (hyperlipidemia) HTN (hypertension) Osteoporosis (Inactive) Surgical History H/O exploratory laparotomy (Inactive) "H/O Volvulus, adhesions and ischemic bowel/appendix" H/O laminectomy (Inactive) H/O shoulder surgery (Inactive) Hx of cardiac cath (Inactive) Hx of tonsillectomy (Inactive) S/P ELEN-BSO (Inactive) Family History Mother Colorectal cancer Father Diabetes Brother Diabetes Social History Preferred Language: Upper Sorbian Communication Ability: Effective [employer] Required: No Beliefs That Will Affect Care: None marital status: / Current Living Situation: Alone Feels Safe at Home: Yes Safety Concerns: Feels Safe At This Time Smoking Status: Never smoker Hx Alcohol Use: Yes Alcohol type: wine Alcohol type Comment: daily Hx Substance Use: No Review of Systems Review of Systems: All systems reviewed & are unremarkable except as noted in HPI & below Nothing additional to add. Physical Exam Physical Exam: General: no acute distress and stated age Head: normocephalic, no masses, lesions, tenderness or abnormalities Eyes: conjunctiva are pink and non-injected, sclera clear Neck: supple, no adenopathy, no bruits, normal jugular venous pulse, no hepatojugular reflux Chest: normal shape and normal respiratory effort Lungs: clear to auscultation and percussion Cardiac Exam: - irregular rate & rhythm, no murmurs gallops or rubs - normal S1, normal S2 Pulses: 2(+) throughout Abdomen: abdomen soft, non-tender, no abnormal masses and no hepatosplenomegaly Musculoskeletal: no gait disturbance, no joint inflammation, no deforming arthritis Extremities: no edema and no cyanosis Neuro: grossly normal exam Results & Data ([facility]) Vital Signs (Past 12 Hours) Vital Signs Temp Pulse Resp BP Pulse Ox 07/07/19 11:19 36.7 C 82 17 152/85 H 98 07/07/19 07:11 36.8 C 83 17 164/82 H 100 07/07/19 02:54 36.4 C L 77 18 156/87 H 99 Laboratory Results Laboratory Results - last 24 hr 07/06/19 07/07/19 07/07/19 17:41 06:29 06:29 Hgb 8.3 L 8.4 L Hct 25.8 L 26.0 L PT 12.4 H INR 1.2 H Medications Administered Current Inpatient Medications Acetaminophen (Tylenol) 650 mg PO Q4H PRN PRN Reason: Pain or Fever Stop: 08/03/19 20:41 Al Hydrox/Mg Hydrox/Simethicone (Maalox) 15 ml PO Q4H PRN PRN Reason: Dyspepsia Stop: 08/03/19 20:41 Ascorbic Acid (Vitamin C) 500 mg PO DAILY [facility] Stop: 08/06/19 08:59 Last Admin: 07/07/19 08:27 Dose: 500 mg Documented by: Atorvastatin Calcium (Lipitor) 80 mg PO DAILY [facility] Stop: 08/06/19 08:59 Last Admin: 07/07/19 08:26 Dose: 80 mg Documented by: Ciprofloxacin (Cipro) 500 mg PO BID [facility] Stop: 07/12/19 11:44 Last Admin: 07/07/19 12:36 Dose: 500 mg Documented by: Clonidine HCl (Catapres) 0.2 mg PO BID [facility] Stop: 08/04/19 08:59 Last Admin: 07/07/19 08:26 Dose: 0.2 mg Documented by: Docusate Sodium/Ferrous Fumarate (Petra-Sequels) 65 mg PO QAM [facility] Stop: 08/06/19 08:59 Last Admin: 07/07/19 08:26 Dose: 65 mg Documented by: Folic Acid (Folvite) 1 mg PO QAM [facility] Stop: 08/06/19 08:59 Last Admin: 07/07/19 08:27 Dose: 1 mg Documented by: Ioversol (Optiray 320 100ml) 93 ml IV ONCE PRN PRN Reason: Interaction Checking Stop: 07/09/19 12:16 Last Admin: 07/05/19 12:17 Dose: 93 ml Documented by: Lisinopril (Zestril) 20 mg PO BID [facility] Stop: 08/03/19 19:09 Last Admin: 07/07/19 08:26 Dose: 20 mg Documented by: Magnesium Oxide (Mag-Ox) 400 mg PO DAILY [facility] Stop: 08/06/19 08:59 Last Admin: 07/07/19 08:27 Dose: 400 mg Documented by: Metronidazole (Metrogel) 1 appln TOP BID [facility] Stop: 07/16/19 20:59 Last Admin: 07/07/19 08:28 Dose: Not Given Documented by: Multivitamins (Multivitamin Tab) 1 tab PO DAILY [facility] Stop: 08/06/19 08:59 Last Admin: 07/07/19 08:27 Dose: 1 tab Documented by: Multivitamins/Minerals (Caltrate Plus) 1 tab PO DAILY [facility] Stop: 08/06/19 08:59 Last Admin: 07/07/19 08:27 Dose: 1 tab Documented by: Polyethylene Glycol (Miralax Powder Packet) 17 gm PO DAILY PRN PRN Reason: Constipation Stop: 08/03/19 20:41
[2019-07-07] MEDS ORDERED: cloNIDine HCL 0.1 MG TAB PO PRN (16:11)
[2019-07-08 07:43] LABS: Hematocrit (blood only) 23.5 % (37-47); Hemoglobin 7.8 g/dL (12.0-16.0); Mean Corpuscular Hemoglobin 34.7 pg (25-34); Mean Corpuscular Hgb Conc 33.2 g/dL (32-36); Mean Corpuscular Volume 104.4 fL (80-100); Platelet Count 218 K/uL (130-400); RDW Coefficient of Variation 13.9 % (11.5-14.5); RDW Standard Deviation 51.7 fL (36.4-46.3); Red Blood Count 2.25 M/uL (4.2-5.4); White Blood Count 5.43 K/uL (4.8-10.8)
[2019-07-08 07:47] LABS: INR 1.3 (0.9-1.1); Prothrombin Time 13.5 Seconds (9.0-12.0)
[2019-07-08] MEDS: lisinopriL 20 MG TAB PO SCH (08:23)
[2019-07-08] MEDS: ATORVASTATIN 40 MG TAB PO SCH (08:23)
[2019-07-08] MEDS: MAGNESIUM OXIDE 400 MG TAB PO SCH (08:23)
[2019-07-08] MEDS: MULTIVITAMIN TAB PO SCH (08:23)
[2019-07-08] MEDS: CALCIUM 600MG + VIT D 400 IU TAB PO SCH (08:23)
[2019-07-08] MEDS: CIPROFLOXACIN 500 MG TAB PO SCH (08:24)
[2019-07-08] MEDS: cloNIDine HCL 0.1 MG TAB PO SCH (08:24)
[2019-07-08] MEDS: ASCORBIC ACID 500 MG TAB PO SCH (08:24)
[2019-07-08] MEDS: FERROUS FUMARATE/ASCORBIC ACID 65 MG CAPCR PO SCH (08:24)
[2019-07-08] MEDS: metroNIDAZOLE 0.75% TOPICAL GEL 45 GM TUBE TOP SCH (08:24)
[2019-07-08] MEDS: FOLIC ACID 1 MG TAB PO SCH (08:24)
--- NOTE | 2019-07-08 11:46 | Electrocardiogram Report ---
Test Reason : Blood Pressure : / mmHG Vent. Rate : 065 BPM Atrial Rate : 000 BPM P-R Int : 000 ms QRS Dur : 082 ms QT Int : 390 ms P-R-T Axes : 000 007 002 degrees QTc Int : 405 ms Atrial fibrillation Minimal voltage criteria for LVH, may be normal variant ( [employer] product ) Poor R wave progression, consider anterior NE vs. lead placement vs. LVH Abnormal ECG When compared with ECG of 04-JUL-2019 15:22, No significant change Confirmed by Alfredo Alston ([id number] on 07/08/2019 11:46:47 AM Referred By: José Vergara Confirmed By:Alfredo Alston
[2019-07-08] MEDS ORDERED: METOPROLOL TARTRATE 50 MG TAB PO STA (13:47)
--- NOTE | 2019-07-08 13:58 | Cardiology Progress Note ---
Date of Service July 08, 2019 Assessment & Plan (1) Chronic atrial fibrillation: (2) Acute lower GI bleeding: (3) Bradycardia: I will restart the patient's metoprolol. She will get 50 mg now and start her usual dose of 100 mg twice daily later this evening. Consideration has to be given regarding her Coumadin which I will leave up to be hospitalist. I think she can be discharged to outpatient follow-up. I will arrange follow-up for the patient after discharge through our office. Subjective The patient has no new complaints today. Her heart rates have improved but also at times have been high in the 130s. She is asymptomatic. She has no complaints and very much wants to go home. Review of Systems Review of Systems: All systems reviewed & are unremarkable except as noted in HPI & below Nothing additional to add. Physical Exam Physical Exam: General: no acute distress and stated age Head: normocephalic, no masses, lesions, tenderness or abnormalities Eyes: conjunctiva are pink and non-injected, sclera clear Neck: supple, no adenopathy, no bruits, normal jugular venous pulse, no hepatojugular reflux Chest: normal shape and normal respiratory effort Lungs: clear to auscultation and percussion Cardiac Exam: - irregular rate & rhythm, no murmurs gallops or rubs - normal S1, normal S2 Pulses: 2(+) throughout Abdomen: abdomen soft, non-tender, no abnormal masses and no hepatosplenomegaly Musculoskeletal: no gait disturbance, no joint inflammation, no deforming arthritis Extremities: no edema and no cyanosis Neuro: grossly normal exam Results & Data Vital Signs (Past 12 Hours) Vital Signs Temp Pulse Pulse Resp BP Pulse Ox 07/08/19 11:12 36.7 C 97 H 18 146/78 H 100 07/08/19 07:44 36.8 C 83 20 167/94 H 100 07/08/19 07:18 79 07/08/19 03:10 36.9 C 75 20 146/86 H 100 Laboratory Results Laboratory Results - last 24 hr 07/04/19 07/08/19 07/08/19 15:10 07:21 07:21 WBC 5.43 RBC 2.25 L Hgb 7.8 L Hct 23.5 L MCV 104.4 H MCH 34.7 H MCHC 33.2 RDW Std Deviation 51.7 H RDW Coeff of Maddi 13.9 Plt Count 218 MPV 10.0 PT 13.5 H INR 1.3 H Crossmatch See Detail Medications Administered Current Inpatient Medications Acetaminophen (Tylenol) 650 mg PO Q4H PRN PRN Reason: Pain or Fever Stop: 08/03/19 20:41 Al Hydrox/Mg Hydrox/Simethicone (Maalox) 15 ml PO Q4H PRN PRN Reason: Dyspepsia Stop: 08/03/19 20:41 Ascorbic Acid (Vitamin C) 500 mg PO DAILY [facility] Stop: 08/06/19 08:59 Last Admin: 07/08/19 08:24 Dose: 500 mg Documented by: Atorvastatin Calcium (Lipitor) 80 mg PO DAILY [facility] Stop: 08/06/19 08:59 Last Admin: 07/08/19 08:23 Dose: 80 mg Documented by: Ciprofloxacin (Cipro) 500 mg PO BID [facility] Stop: 07/12/19 11:44 Last Admin: 07/08/19 08:24 Dose: 500 mg Documented by: Clonidine HCl (Catapres) 0.2 mg PO BID [facility] Stop: 08/04/19 08:59 Last Admin: 07/08/19 08:24 Dose: 0.2 mg Documented by: Clonidine HCl (Catapres) 0.1 mg PO Q8 PRN PRN Reason: SBP> 160 Stop: 08/06/19 16:10 Last Admin: 07/07/19 16:40 Dose: 0.1 mg Documented by: Docusate Sodium/Ferrous Fumarate (Petra-Sequels) 65 mg PO QAM [facility] Stop: 08/06/19 08:59 Last Admin: 07/08/19 08:24 Dose: 65 mg Documented by: Folic Acid (Folvite) 1 mg PO QAM [facility] Stop: 08/06/19 08:59 Last Admin: 07/08/19 08:24 Dose: 1 mg Documented by: Ioversol (Optiray 320 100ml) 93 ml IV ONCE PRN PRN Reason: Interaction Checking Stop: 07/09/19 12:16 Last Admin: 07/05/19 12:17 Dose: 93 ml Documented by: Lisinopril (Zestril) 20 mg PO BID [facility] Stop: 08/03/19 19:09 Last Admin: 07/08/19 08:23 Dose: 20 mg Documented by: Magnesium Oxide (Mag-Ox) 400 mg PO DAILY [facility] Stop: 08/06/19 08:59 Last Admin: 07/08/19 08:23 Dose: 400 mg Documented by: Metoprolol Tartrate (Lopressor) 100 mg PO BID [facility] Stop: 08/07/19 20:59 Metronidazole (Metrogel) 1 appln TOP BID [facility] Stop: 07/16/19 20:59 Last Admin: 07/08/19 08:24 Dose: Not Given Documented by: Multivitamins (Multivitamin Tab) 1 tab PO DAILY [facility] Stop: 08/06/19 08:59 Last Admin: 07/08/19 08:23 Dose: 1 tab Documented by: Multivitamins/Minerals (Caltrate Plus) 1 tab PO DAILY [facility] Stop: 08/06/19 08:59 Last Admin: 07/08/19 08:23 Dose: 1 tab Documented by: Polyethylene Glycol (Miralax Powder Packet) 17 gm PO DAILY PRN PRN Reason: Constipation Stop: 08/03/19 20:41
--- NOTE | 2019-07-08 14:43 | Hospitalist Progress Note ---
Date of Service July 08, 2019 Assessment & Plan (1) Acute lower GI bleeding: LGIB, probably diverticular. 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 melanotic stools, multiple painless bowel movement with passage of blood clots and bright red blood per rectum Presented with dizzy spell and lightheadedness, Plavix and Coumadin was kept on hold CT abdomen pelvis shows chronic diverticular disease GI consulted, appreciate input-diverticular bleed, No role of colonoscopy, anticoagulation Plavix and Coumadin was kept on hold Spontaneous resolution of GI bleeding noted while in hospital Stable to be discharged home, Patient is instructed to resume Plavix and Coumadin tomorrow 07/09/2019 will be d/c on iron /folate supplements f/u lab work: CBC check at [facility] in 2 days 07/11/2019 diverticular bleed in the setting of coagulopathy: On Coumadin and Plavix CT abdomen pelvis: Evidence of chronic diverticular disease 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 No convincing evidence of diverticulitis. No further episode of active GI bleed in the last 48 hours/over the weekend (2) Acute blood loss anemia: Due to above, Hemoglobin drop noted from 12 on 07/04/2019-> 9-> 8 -> 7.8 No further episode of GI bleed, Patient will be discharged with iron supplement and folic acid Instructed to avoid NSAIDs Plavix and Coumadin will be resumed on discharge for prior history of CVA Repeat lab work: CBC on 07/11/2019 anemia (3) Chronic atrial fibrillation: History of chronic A. fib on metoprolol 100 mg twice daily and digoxin Patient was kept overnight for bradycardic episode 1 day before Lopressor and digoxin was kept on hold Overnight telemetry shows no episode of bradycardia, heart rate remained stable between 70s, A. fib RVR noted with heart rate going up to 130s Patient remains asymptomatic Appreciate cardiology Given 50 mg p.o. Lopressor x1 now Patient will be discharged home with prior dose of metoprolol on amiodarone twice daily, discontinue digoxin Follow-up scheduled with cardiology office in the next 1-2 weeks (4) History of CVA (cerebrovascular accident): No residual deficit On statin, Plavix, warfarin as outpatient Plavix and warfarin was kept on hold in setting of lower GI bleed No further episode of GI bleed Anticoagulation warfarin and Plavix will be resumed on discharge Close follow-up with family physician and outpatient CBC check to assess any episode of GI bleed causing anemia (5) HTN (hypertension): Blood pressure stable On clonidine, lisinopril, metoprolol (6) HLD (hyperlipidemia): Continue statin (7) GERD (gastroesophageal reflux disease): Continue PPI (8) DVT prophylaxis: SCD/TEDS Disposition: Stable to be discharged home today Follow-up: Hospital follow-up scheduled with patient's family physician Dr. Ruffin Cardiology appointment in 1-2 weeks will be scheduled by clinic at [facility] clinic Admission and Anticipated Discharge Date Admission Date: July 04, 2019 Anticipated date of discharge: 07/08/19 Subjective Did not had any episode of bright red blood per rectum Had one bowel movement, with old/dark clot No complaint of abdominal pain, Vitals been stable no dizzy spell or lightheadedness Very eager to be discharged home Review of Systems Review of Systems: All systems reviewed & are unremarkable except as noted in HPI & below Gastrointestinal: + blood in stools; no abdominal pain, no nausea, no vomiting and no coffee ground emesis Physical Exam Constitutional: WD/WN, vitals as above Eyes: PERRL, conjunctivae normal, anicteric sclerae ENMT: external ear and nose normal, oropharynx normal Neck: trachea midline, no thyromegaly Respiratory: normal respiratory effort, lungs clear to auscultation Cardiovascular: RRR, no murmur, no edema Gastrointestinal (Abdomen): normal bowel sounds, soft, nontender, no hepatosplenomegaly Musculoskeletal: no cyanosis or clubbing, extremities motor strength 5/5 Skin: no rashes, warm and dry Neurologic: PERRL, EOMI, accommodation nl, no face palsy, no dysarthria Psychiatric: A+Ox3, euthymic affect Results & Data ([facility]) Vital Signs (Past 12 Hours) Vital Signs Temp Pulse Pulse Pulse Resp BP BP 07/08/19 14:21 36.7 C 96 H 97 H 18 131/83 146/78 H 07/08/19 11:12 36.7 C 97 H 18 146/78 H 07/08/19 07:44 36.8 C 83 20 167/94 H 07/08/19 07:18 79 07/08/19 03:10 36.9 C 75 20 146/86 H Pulse Ox 07/08/19 14:21 100 07/08/19 11:12 100 07/08/19 07:44 100 07/08/19 07:18 07/08/19 03:10 100
--- NOTE | 2019-07-08 14:45 | Discharge Summary ---
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 She was in her usual state of health until this morning whenever she woke up went to move her bowels and noticed that she had bright red blood per rectum. She has had frequent bowel movements since this morning all with associated blood. She states she is passing, "clots." "It comes out whenever it wants to." She can pass clots without even passing any stool. She recalls having something similar to this in the past however it was much less severe and resolved on its own. She denies any fever, chills, sweats, lightheadedness, dizziness, syncope, chest pain, shortness of breath, palpitations, nausea, vomiting, diarrhea, abdominal pain. She elicits to decreased urination but denies any dysuria, increased urgency or hematuria. She has not had anything to eat or drink today due to, "spending too much time on the toilet." Up until yesterday though her appetite has been normal. She denies any associated weight gain or weight loss. She does have a family history of colon cancer but her last colonoscopy was in 2016 which was normal per patient. In ED patient remained hemodynamically stable, she was actually hypertensive. Her blood pressure upon my evaluation was 160/102. Lab work revealed stable H&H at 12.1 and 37.1, WBC 9.71, INR 2.3, BUN 17, creatinine 0.93, glucose 115, troponin WNL. Chest x-ray revealed cardiomegaly without acute cardiopulmonary disease, chronic interstitial lung disease. KUB revealed nonobstructive bowel gas pattern without pneumoperitoneum. Principal Diagnosis Acute diverticular bleed, Acute blood loss anemia UTI Discharge Exam Constitutional WD/WN, vitals as above Eyes PERRL, conjunctivae normal, anicteric sclerae ENMT external ear and nose normal, oropharynx normal Neck trachea midline, no thyromegaly Respiratory normal respiratory effort, lungs clear to auscultation Cardiovascular RRR, no murmur, no edema Gastrointestinal (Abdomen) normal bowel sounds, soft, nontender, no hepatosplenomegaly Musculoskeletal no cyanosis or clubbing, extremities motor strength 5/5 Skin no rashes, warm and dry Neurologic PERRL, EOMI, accommodation nl, no face palsy, no dysarthria Psychiatric A+Ox3, euthymic affect Discharge Data Allergies Allergy/AdvReac Type Severity Reaction Status Date / Time pneumococcal vaccine Allergy Mild DIZZINESS Verified 07/04/19 16:03 AND FELT LOUSY Sulfa (Sulfonamide Allergy Unknown high Verified 07/04/19 16:03 Antibiotics) fever/ rash aspirin AdvReac Unknown epistaxis Verified 07/04/19 16:03 Consultations 07/04/19 16:54 ED Decision to Admit Stat 07/04/19 20:42 Consult Case Management - Discharge Planning Routine Consult Gastroenterology Routine 07/07/19 12:47 Consult Cardiology Routine Ordered Studies 07/05/19 11:21 CT abd pelvis IV con only Stat Hospital Course (1) Acute lower GI bleeding: LGIB, probably diverticular. 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 melanotic stools, multiple painless bowel movement with passage of blood clots and bright red blood per rectum Presented with dizzy spell and lightheadedness, Plavix and Coumadin was kept on hold CT abdomen pelvis shows chronic diverticular disease GI consulted, appreciate input-diverticular bleed, No role of colonoscopy, anticoagulation Plavix and Coumadin was kept on hold Spontaneous resolution of GI bleeding noted while in hospital Stable to be discharged home, Patient is instructed to resume Plavix and Coumadin tomorrow 07/09/2019 will be d/c on iron /folate supplements f/u lab work: CBC check at [facility] in 2 days 07/11/2019 diverticular bleed in the setting of coagulopathy: On Coumadin and Plavix CT abdomen pelvis: Evidence of chronic diverticular disease 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 No convincing evidence of diverticulitis. No further episode of active GI bleed in the last 48 hours/over the weekend (2) Acute blood loss anemia: Due to above, Hemoglobin drop noted from 12 on 07/04/2019-> 9-> 8 -> 7.8 No further episode of GI bleed, Patient will be discharged with iron supplement and folic acid Instructed to avoid NSAIDs Plavix and Coumadin will be resumed on discharge for prior history of CVA Repeat lab work: CBC on 07/11/2019 anemia (3) Chronic atrial fibrillation: History of chronic A. fib on metoprolol 100 mg twice daily and digoxin Patient was kept overnight for bradycardic episode 1 day before Lopressor and digoxin was kept on hold Overnight telemetry shows no episode of bradycardia, heart rate remained stable between 70s, A. fib RVR noted with heart rate going up to 130s Patient remains asymptomatic Appreciate cardiology Given 50 mg p.o. Lopressor x1 now Patient will be discharged home with prior dose of metoprolol on amiodarone twice daily, discontinue digoxin Follow-up scheduled with cardiology office in the next 1-2 weeks (4) History of CVA (cerebrovascular accident): No residual deficit On statin, Plavix, warfarin as outpatient Plavix and warfarin was kept on hold in setting of lower GI bleed No further episode of GI bleed Anticoagulation warfarin and Plavix will be resumed on discharge Close follow-up with family physician and outpatient CBC check to assess any episode of GI bleed causing anemia (5) HTN (hypertension): Blood pressure stable On clonidine, lisinopril, metoprolol (6) HLD (hyperlipidemia): Continue statin (7) GERD (gastroesophageal reflux disease): Continue PPI (8) DVT prophylaxis: SCD/TEDS Disposition: Stable to be discharged home today Follow-up: Hospital follow-up scheduled with patient's family physician Dr. Ruffin Cardiology appointment in 1-2 weeks will be scheduled by clinic at [facility] Total Time Total Time Spent Total Time Spent (In Minutes): 40 minutes Total Time Includes: Examination of the Patient, Discharge Planning, Medication Reconciliation and Communication With Other Providers Discharge Plan Discharge Items Patient Disposition: Home - Self-Care Reason For Visit: LGIB Discharge Diagnosis: Acute diverticular bleed, Acute blood loss anemia UTI Activity: Resume your previous activity Non-emergency contact: Primary Care Provider Call non-emergency contact if: you have any medication questions Follow-up/Referrals: José Vergara, [Primary Care Provider] - 07/15/19 11:05 am (PX NOTIFIED OF FOLLOW-UP APPT WITH DR. VERGARA AT DISCHARGE) Diet: Heart Healthy Ambulatory Orders: Complete Blood Count no Diff (Routine) Timeframe: [id number] Location: Determined by Patient Ordered By: Aida Lee Attending Provider Instructions: Do not take high-dose aspirin, Advil, Aleve, Motrin, ibuprofen, naproxen-can cause severe gastric reflux, bleeding in the stomach Lab work: CBC on sunday07/11/19 Can resume taking aspirin and Plavix from tomorrow 07/09/19 Please notify family physician or come to ER with any evidence of blood in stool or dark-colored stool NEW MEDICATION : 1.FERROUS SULFATE 1 TABLET TWICE DAILY -IRON SUPPLEMENT FOR ANEMIA MAY CHANGE THE COLOR OF STOOL TO BLACK take over the counter stool softener -Colace and Miralx while taking Iron table to prevent constipation 2.Folic acid 1 mg -1 tablet daily -for anemia DO NOT TAKE DIGOXIN FOLLOW UP WITH CARDIOLOGY IN OFFICE SCHEDULED CIPROFLOXACIN 500 MG 1 TABLET TWICE DAILY FOR URINARY TRACT INFECTION Pending Studies at Discharge: Yes Studies:: Lab work: Complete blood count Stand-Alone Forms: [facility], Smoking Cessation Medications and DC Order Prescriptions: New ferrous sulfate [FeroSul] 325 mg (65 mg iron) tablet 325 mg PO BID Qty: 60 RF: 0 folic acid 1 mg tablet 1 mg PO DAILY Qty: 30 RF: 0 ciprofloxacin HCl 500 mg Tablet 500 mg PO BID 2 Days Qty: 4 RF: 0 Continued multivitamin Tablet 1 tab PO DAILY RF: 0 atorvastatin [Lipitor] 80 mg tablet 80 mg PO DAILY RF: 0 metoprolol tartrate 100 mg tablet 100 mg PO BID RF: 0 lisinopril 20 mg tablet 20 mg PO BID RF: 0 clonidine HCl 0.2 mg tablet 0.2 mg PO BID RF: 0 ascorbic acid (vitamin C) [Vitamin C] 500 mg Tablet 500 mg PO DAILY RF: 0 omeprazole 20 mg capsule,delayed release(DR/EC) 20 mg PO DAILY RF: 0 metronidazole [Rosadan] 0.75 % gel 1 applic TOPICAL BID RF: 0 Prolia 60 mg/mL Syringe 60 mg SUBCUT .Q6MO RF: 0 Caltrate 600 plus D 600 mg (1,500 mg)-800 unit Tablet,Chewable 1 tab PO DAILY RF: 0 magnesium oxide 400 mg magnesium Tablet 200 mg PO DAILY RF: 0 clopidogrel [Plavix] 75 mg Tablet 75 mg PO DAILY RF: 0 warfarin 3 mg Tablet 3 mg PO MOWEFR RF: 0 warfarin 2 mg Tablet 2 mg PO SUTUTHSA RF: 0 Discontinued digoxin [Digox] 125 mcg (0.125 mg) tablet 125 mcg PO Q OTHER DAY RF: 0 Discharge Orders: Discharge Order (Routine); Ordered 07/08/19 Ordered By: Aida Mckenzie/Other Patient Handouts: Diverticulosis Diverticulitis, Bleeding Rectal Admission Data Admit Date/Time: 07/04/19 17:31 Attending Provider: Aida Jimenez Admit Provider: Lyudmila Bernard Primary Care Provider: José Vergara Other Providers: Lyudmila Bernard ; Aleyda Kaminski ; Philippe Valencia ; Stas Holguin ; Sami Sahni ; Charan Cassidy ; Tony Garcia. ; Santi Thomas ; Fina Chavira ; Corinne Tran ; Duran Henson Other Interventions: Discharge Summary Assessment (RN) Last Done: 07/08/19 14:21 DC Date/Time DO NOT enter until pt leaves facility: 07/08/19 14:52
[2019-07-08] MEDS ORDERED: METOPROLOL TARTRATE 100 MG TAB PO SCH (21:00)
== END 2019-07-08 14:52 | disposition home or self-care (01) | DRG 813 ==
LOC: ED 14:46 → SUATTDRO 17:31 → 2S 17:31

== ENCOUNTER 2019-09-28 22:10 | Inpatient (IN) ==
[2019-09-28] MEDS ORDERED: OPTIRAY 320 125ml IV PRN (22:27)
[2019-09-28] MEDS ORDERED: LABETALOL HCL IV 5 MG/ML 20ML IV ONE (22:36)
[2019-09-28] MEDS ORDERED: LABETALOL HCL IV 5 MG/ML 20ML IV STA (22:38)
[2019-09-28 22:46] LABS: Basophils # (auto) 0.04 K/uL (0-0.2); Basophils % (auto) 0.3 %; Eosinophils # (auto) 0.04 K/uL (0-0.5); Eosinophils % (auto) 0.3 %; Hematocrit (blood only) 43.6 % (37-47); Hemoglobin 13.9 g/dL (12.0-16.0); Immature Granulocytes # (auto) 0.02 K/uL (0.00-0.02); Immature Granulocytes % (auto) 0.2 %; Lymphocytes # (auto) 1.76 K/uL (1.2-3.4); Lymphocytes % (auto) 14.2 %; Mean Corpuscular Hgb Conc 31.9 g/dL (32-36); Mean Corpuscular Volume 103.6 fL (80-100); Monocytes # (auto) 0.83 K/uL (0.11-0.59); Monocytes % (auto) 6.7 %; Neutrophils # (auto) 9.72 K/uL (1.4-6.5); Neutrophils % (auto) 78.3 %; Platelet Count 392 K/uL (130-400); RDW Coefficient of Variation 13.6 % (11.5-14.5); RDW Standard Deviation 51.8 fL (36.4-46.3); Red Blood Count 4.21 M/uL (4.2-5.4); White Blood Count 12.41 K/uL (4.8-10.8)
[2019-09-28 22:54] LABS: Appearance Urine Clear (Clear); Bacteria Urine Automated Negative (Negative); Bilirubin Urine Negative (Negative); Blood Urine Negative (Negative); Color Urine Yellow; Glucose Urine UA Negative (Negative); Ketones Urine Negative (Negative); Leukocyte Esterase Urine Trace (Negative); Nitrite Urine Negative (Negative); Protein Urine Negative (Negative); RBC Urine Automated 0-4 /hpf (0-4); Specific Gravity Urine 1.011 (1.000-1.030); Urobilinogen Urine Negative (Negative)
[2019-09-28 22:58] LABS: iSTAT Creatinine 0.8 mg/dl (0.6-1.3); iSTAT Hemoglobin 15.3 g/dl (12.0-16.0); iSTAT Ionized Calcium 1.23 mmol/l (1.12-1.32); iSTAT Potassium 3.6 mmol/L (3.3-5.0)
[2019-09-28 22:58] LABS: INR 1.3 (0.9-1.1); Prothrombin Time 13.6 Seconds (9.0-12.0)
[2019-09-28 23:03] LABS: Albumin Level 3.3 gm/dl (3.4-5.0); BUN Creatinine Ratio 15.5 (10-20); Calcium 9.3 mg/dl (8.5-10.1); Creatinine Clr Calc Pharmacy 36.1 ml/min; Est GFR (African American) 67.6; Est GFR (Non-African American) 58.3; Magnesium 1.8 mg/dl (1.8-2.4); Potassium 3.8 mmol/L (3.5-5.1)
[2019-09-28 23:08] LABS: Albumin Globulin Ratio 0.7 (0.9-2); Bilirubin,Total 0.4 mg/dl (0.2-1); Total Protein 8.3 gm/dl (6.4-8.2); Troponin I 0.02 ng/ml (0-0.045)
--- NOTE | 2019-09-28 23:10 | Emergency Department Note ---
History of Present Illness General Chief complaint: Stroke/CVA Symptoms Stated complaint: STROKE SX, ETOH Time Seen by Provider: 09/28/19 22:11 Source: EMS Mode of arrival: EMS Limitations: other (Dysarthria) History of Present Illness Provider complaint: Possible stroke Onset (ago): unknown This is an 84-year-old female who presents via EMS from home with slurred speech. EMS stated that the daughter called to check on her mom this evening and noticed her speech was slurred and garbled. She then contacted neighbors who stated they had last seen her in her usual state of health at 3 PM this afternoon. Patient does take Coumadin due to atrial fibrillation. Patient has had a prior stroke. EMS reported that the daughter inform them that the patient had slurred speech with her prior stroke also. Patient found to be hypertensive in route. Patient's sugar prehospital was elevated. Neighbors told EMS patient did have some wine earlier this evening. No additional information provided to EMS from neighbors her daughter. Pt seen during a time of high acuity and national emergency pandemic while wearing PPE. Home Medications Home Medications Medication Instructions Recorded Confirmed Type Caltrate 600 plus D 1 tab PO QPM 07/04/19 09/28/19 History Prolia 60 mg SUBCUT .Q6MO 07/04/19 09/28/19 History ascorbic acid (vitamin C) [Vitamin 500 mg PO QPM 07/04/19 09/28/19 History C] atorvastatin [Lipitor] 80 mg PO HS 07/04/19 09/28/19 History clonidine HCl 0.2 mg PO BID 07/04/19 09/28/19 History clopidogrel [Plavix] 75 mg PO QAM 07/04/19 09/28/19 History lisinopril 20 mg PO BID 07/04/19 09/28/19 History metoprolol tartrate 100 mg PO BID 07/04/19 09/28/19 History multivitamin 1 tab PO QPM 07/04/19 09/28/19 History folic acid 1 mg PO QPM 07/24/19 09/28/19 History ferrous sulfate [FeroSul] 325 mg PO BID 09/07/19 09/28/19 History magnesium oxide 250 mg PO DAILY 09/07/19 09/28/19 History metronidazole 1 applic TOPICAL DAILY 09/28/19 09/28/19 History amlodipine [Norvasc] 5 mg PO QAM 10 Days #10 tab 10/02/19 Rx pantoprazole 40 mg PO QPM 30 Days #30 tab 10/02/19 Rx rivaroxaban [Xarelto] 15 mg PO QDD 30 Days #30 tab 10/02/19 Rx Allergies Allergy/AdvReac Type Severity Reaction Status Date / Time pneumococcal vaccine Allergy Mild DIZZINESS Verified 09/28/19 23:24 AND FELT LOUSY Sulfa (Sulfonamide Allergy Unknown high Verified 09/28/19 23:24 Antibiotics) fever/ rash aspirin AdvReac Unknown epistaxis Verified 09/28/19 23:24 Past Med/Surg History Medical History (Updated 09/29/19 @ 13:33 by Max Sales, DO) Anemia Cardiac murmur "told years ago" Carotid stenosis, bilateral Cataract Chronic atrial fibrillation Chronic back pain Diverticular disease Diverticulosis Exertional dyspnea with stairs FH: total abdominal hysterectomy and bilateral salpingo-oophorectomy GERD (gastroesophageal reflux disease) GI bleed "blood in stool" History of CVA (cerebrovascular accident) L MCA CVA History of ischemic bowel disease (Chronic) HLD (hyperlipidemia) HTN (hypertension) Inguinal hernia Osteoarthritis Osteoporosis (Inactive) Surgical History H/O exploratory laparotomy (Inactive) "H/O Volvulus, adhesions and ischemic bowel/appendix" H/O laminectomy (Inactive) H/O shoulder surgery (Inactive) H/O shoulder surgery right History of adenoidectomy History of appendectomy History of cardiac cath [place], "years ago" History of colonoscopy History of discectomy History of surgery small bowel malrotation History of tonsillectomy Hx of cardiac cath (Inactive) Hx of tonsillectomy (Inactive) S/P ELEN-BSO (Inactive) Status post Mohs surgery Family History Mother Colorectal cancer Family hx of colon cancer Father Diabetes Brother Diabetes Social History Preferred Language: Tristanian Communication Ability: Impaired 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: No Beliefs That Will Affect Care: None marital status: / Current Living Situation: Alone Other Information That Helps Us Care for You: No Feels Safe at Home: Yes Smoking Status: Unknown if ever smoked Hx Alcohol Use: No Hx Substance Use: No Review of Systems Other (Unable due to significant dysarthria) Physical Exam Vital Signs Vital Signs - 24 hr 09/28/19 22:32 09/28/19 22:34 09/28/19 22:35 Temperature 36.9 C Temperature Source Oral Pulse Rate 95 H 108 H 90 Pulse Rate [Apical] Pulse Rate from SpO2 Sensor Respiratory Rate 18 36 H 23 Respiratory Effort / Characteristics Respiratory Depth Blood Pressure 217/141 H 217/141 H Blood Pressure [Right Arm] Blood Pressure Mean 166 165 Blood Pressure Mean [Right Arm] Blood Pressure Position [Right Arm] Pulse Oximetry Oxygen Delivery Method Sepsis Recent Fever Within 48 Hours No Sepsis New/Unexplained Change in Mental Status No Sepsis Action Taken by Nursing No Action Required 09/28/19 22:40 09/28/19 22:41 09/28/19 22:45 Temperature Temperature Source Pulse Rate 105 H 94 H 103 H Pulse Rate [Apical] Pulse Rate from SpO2 Sensor 108 H 104 H 86 Respiratory Rate 36 H 43 H 40 H Respiratory Effort / Characteristics Respiratory Depth Blood Pressure 194/139 H 201/115 H Blood Pressure [Right Arm] Blood Pressure Mean 170 144 Blood Pressure Mean [Right Arm] Blood Pressure Position [Right Arm] Pulse Oximetry 96 98 93 Oxygen Delivery Method Sepsis Recent Fever Within 48 Hours Sepsis New/Unexplained Change in Mental Status Sepsis Action Taken by Nursing 09/28/19 22:47 09/28/19 22:50 09/28/19 22:55 Temperature Temperature Source Pulse Rate 96 H 93 H 96 H Pulse Rate [Apical] Pulse Rate from SpO2 Sensor 103 H 104 H 92 H Respiratory Rate 36 H 29 H 34 H Respiratory Effort / Characteristics Respiratory Depth Blood Pressure 191/133 H 179/113 H 182/120 H Blood Pressure [Right Arm] Blood Pressure Mean 160 146 136 Blood Pressure Mean [Right Arm] Blood Pressure Position [Right Arm] Pulse Oximetry 98 98 98 Oxygen Delivery Method Sepsis Recent Fever Within 48 Hours Sepsis New/Unexplained Change in Mental Status Sepsis Action Taken by Nursing 09/28/19 23:00 09/28/19 23:01 09/28/19 23:05 Temperature Temperature Source Pulse Rate 112 H 103 H 86 Pulse Rate [Apical] Pulse Rate from SpO2 Sensor 99 H 103 H 86 Respiratory Rate 34 H 36 H 33 H Respiratory Effort / Characteristics Respiratory Depth Blood Pressure 179/130 H 199/112 H Blood Pressure [Right Arm] Blood Pressure Mean 143 125 Blood Pressure Mean [Right Arm] Blood Pressure Position [Right Arm] Pulse Oximetry 91 96 96 Oxygen Delivery Method Sepsis Recent Fever Within 48 Hours Sepsis New/Unexplained Change in Mental Status Sepsis Action Taken by Nursing 09/28/19 23:10 09/29/19 00:05 Temperature Temperature Source Pulse Rate 96 H Pulse Rate [Apical] 84 Pulse Rate from SpO2 Sensor 97 H Respiratory Rate 32 H 18 Respiratory Effort / Characteristics Non-Labored Respiratory Depth Normal Blood Pressure 162/117 H Blood Pressure [Right Arm] 178/110 H Blood Pressure Mean 138 Blood Pressure Mean [Right Arm] 132 Blood Pressure Position [Right Arm] Lying Pulse Oximetry 97 99 Oxygen Delivery Method Room Air Sepsis Recent Fever Within 48 Hours Sepsis New/Unexplained Change in Mental Status Sepsis Action Taken by Nursing GENERAL: alert, well appearing, well nourished, moderate distress, non-toxic, tearful, anxious EYE EXAM: normal conjunctiva, PERRL and EOM's grossly intact OROPHARYNX: no exudate, no erythema, lips, buccal mucosa, and tongue normal and mucous membranes are moist NECK: supple, no nuchal rigidity, no adenopathy, non-tender LUNGS: Clear to auscultation. Normal chest wall mechanics, no w/r/r HEART: no murmurs, S1 normal and S2 normal ABDOMEN: abdomen soft, non-tender, normo-active bowel sounds, no masses, no rebound or guarding. BACK: Back is symmetrical on inspection and there is no deformity, no midline tenderness, no CVA tenderness. SKIN: no rashes and no bruising UPPER EXTREMITIES: upper extremities are grossly normal. FROM, nml pulses b/l. LOWER EXTREMITIES: No pitting edema. FROM, nml pulses b/l. NEURO EXAM: Normal sensorium, cranial nerves II-XII grossly intact, significant dysarthria/aphasia, some difficulty following commands intermittently, no gross weakness of arms, no gross weakness of legs. Gross sensation intact. NIHSS 4. Course Course 232: Discussed with pt's daughterIzzy. Updated on condition. 2329: Pt's speech slightly improved. Pt updated on conversation with daughter. 2347: Discussed with Dr. Jackson, [place] [facility], pt not a candidate for other neurointervention for a stroke. Pt potentially should have additional evaluation and have possible anticoagulation after clarification with radiology. 2353: Discussed with Dr. Priest, radiology. 0025: Discussed with Dr. Yanez for additional mgmt. Administered Medications Discontinued Medications Amlodipine Besylate (Norvasc) 10 mg PO QAM [facility] Stop: 10/29/19 11:29 Last Admin: 10/01/19 09:58 Dose: 10 mg Documented by: [id number] Admin: 09/30/19 08:07 Dose: 10 mg Documented by: [id number] Admin: 09/29/19 13:21 Dose: 10 mg Documented by: [id number] A[facility]odipine [facility] ([facility]asc) [facility] Stop: 11/01/19 08:59 Last Admin: 10/02/19 07:43 Dose: 5 mg Documented by: [id number] Atorvastatin Calcium (Lipitor) 80 mg PO HS [facility] Stop: 10/29/19 20:59 Last Admin: 10/01/19 20:44 Dose: 80 mg Documented by: [id number] Admin: 09/30/19 21:16 Dose: 80 mg Documented by: [id number] Admin: 09/29/19 19:58 Dose: 80 mg Documented by: [id number] Clonidine HCl (Catapres) 0.2 mg PO BID [facility] Stop: 10/29/19 08:59 Last Admin: 10/02/19 07:44 Dose: 0.2 mg Documented by: [id number] Admin: 10/01/19 20:43 Dose: 0.2 mg Documented by: [id number] Admin: 10/01/19 09:57 Dose: 0.2 mg Documented by: [id number] Admin: 09/30/19 21:15 Dose: 0.2 mg Documented by: [id number] Admin: 09/30/19 08:07 Dose: 0.2 mg Documented by: [id number] Admin: 09/29/19 19:59 Dose: 0.2 mg Documented by: [id number] Admin: 09/29/19 10:48 Dose: 0.2 mg Documented by: [id number] Clopidogrel Bisulfate (Plavix) 75 mg PO QAM [facility] Stop: 10/29/19 08:59 Last Admin: 10/02/19 07:43 Dose: 75 mg Documented by: [id number] Admin: 10/01/19 09:57 Dose: 75 mg Documented by: [id number] Admin: 09/30/19 08:07 Dose: 75 mg Documented by: [id number] Admin: 09/29/19 10:49 Dose: 75 mg Documented by: [id number] Enalapril Maleate (Vasotec) 20 mg PO BID [facility] Stop: 10/29/19 11:29 Last Admin: 10/02/19 07:43 Dose: 20 mg Documented by: [id number] Admin: 10/01/19 20:43 Dose: 20 mg Documented by: [id number] Admin: 10/01/19 09:58 Dose: 20 mg Documented by: [id number] Admin: 09/30/19 21:14 Dose: 20 mg Documented by: [id number] Admin: 09/30/19 08:07 Dose: 20 mg Documented by: [id number] Admin: 09/29/19 20:01 Dose: 20 mg Documented by: [id number] Admin: 09/29/19 13:21 Dose: 20 mg Documented by: [id number] Ferrous Sulfate (Feosol) 325 mg PO BID [facility] Stop: 10/29/19 08:59 Last Admin: 10/02/19 07:43 Dose: 325 mg Documented by: [id number] Admin: 10/01/19 20:43 Dose: 325 mg Documented by: [id number] Admin: 10/01/19 09:57 Dose: 325 mg Documented by: [id number] Admin: 09/30/19 21:14 Dose: 325 mg Documented by: [id number] Admin: 09/30/19 08:07 Dose: 325 mg Documented by: [id number] Admin: 09/29/19 19:59 Dose: 325 mg Documented by: [id number] Admin: 09/29/19 10:48 Dose: 325 mg Documented by: [id number] Folic Acid (Folvite) 1 mg PO QPM [facility] Stop: 10/29/19 20:59 Last Admin: 10/01/19 20:43 Dose: 1 mg Documented by: [id number] Admin: 09/30/19 21:16 Dose: 1 mg Documented by: [id number] Admin: 09/29/19 19:57 Dose: 1 mg Documented by: [id number] Furosemide (Lasix) 40 mg IV NOW STA Stop: 09/29/19 00:05 Last Admin: 09/29/19 00:28 Dose: 40 mg Documented by: [id number] Gadobutrol (Gadavist 65ml) 5 ml IV ONCE PRN PRN Reason: Interaction Checking Stop: 10/03/19 12:42 Last Admin: 09/29/19 12:44 Dose: 5 ml Documented by: [id number] Heparin Sodium/Dextrose () 1 ea N/A ONE ONE; Protocol Stop: 09/29/19 00:03 Last Admin: 09/29/19 00:42 Dose: 1 ea Documented by: [id number] Heparin Sodium/Dextrose (Heparin Sodium/Dextrose) 25,000 units in 500 mls @ 13 mls/hr IV .Q24H CHARLES; Protocol Stop: 10/29/19 00:14 Last Titration: 09/30/19 10:50 Dose: 0 units/hr, 0 mls/hr Documented by: [id number] Cosigned by: [id number] Titration: 09/30/19 07:02 Dose: 650 units/hr, 13 mls/hr Documented by: [id number] Cosigned by: [id number] Titration: 09/29/19 19:26 Dose: 650 units/hr, 13 mls/hr Documented by: [id number] Cosigned by: [id number] Titration: 09/29/19 06:54 Dose: 650 units/hr, 13 mls/hr Documented by: [id number] Cosigned by: [id number] Admin: 09/29/19 00:28 Dose: 650 units/hr, 13 mls/hr Documented by: [id number] Cosigned by: [id number] Sodium Chloride (Nss 1000ml) 1,000 mls @ 50 mls/hr IV .Q20H [facility]LES Stop: 10/29/19 01:57 Last Infusion: 09/29/19 09:25 Dose: 0 mls/hr Documented by: [id number] Admin: 09/29/19 02:56 Dose: 50 mls/hr Documented by: [id number] Heparin Sodium (Porcine) 4,000 (units/ Syringe) 4 mls @ 10 mls/min IV ONE ONE Stop: 09/29/19 08:01 Last Admin: 09/29/19 08:33 Dose: 10 mls/min Documented by: [id number] Cosigned by: [id number] Heparin Sodium/Dextrose (Heparin Sodium/Dextrose) 25,000 units in 500 mls @ 13 mls/hr IV .Q24H CHARLES; Protocol Stop: 10/01/19 16:30 Last Titration: 10/01/19 20:39 Dose: 0 units/hr, 0 mls/hr Documented by: [id number] Cosigned by: [id number] Admin: 10/01/19 09:59 Dose: Not Given Documented by: [id number] Titration: 10/01/19 07:07 Dose: 650 units/hr, 13 mls/hr Documented by: [id number] Cosigned by: [id number] Titration: 10/01/19 06:03 Dose: 650 units/hr, 13 mls/hr Documented by: [id number] Cosigned by: [id number] Titration: 09/30/19 19:03 Dose: 650 units/hr, 13 mls/hr Documented by: [id number] Cosigned by: [id number] Admin: 09/30/19 09:59 Dose: 650 units/hr, 13 mls/hr Documented by: [id number] Cosigned by: [id number] Titration: 09/30/19 09:59 Dose: 650 units/hr, 13 mls/hr Documented by: [id number] Cosigned by: [id number] Titration: 09/30/19 05:14 Dose: 650 units/hr, 13 mls/hr Documented by: [id number] Cosigned by: [id number] Titration: 09/29/19 22:06 Dose: 650 units/hr, 13 mls/hr Documented by: [id number] Cosigned by: [id number] Titration: 09/29/19 15:05 Dose: 650 units/hr, 13 mls/hr Documented by: [id number] Cosigned by: [id number] Titration: 09/29/19 14:39 Dose: 0 units/hr, 0 mls/hr Documented by: [id number] Cosigned by: [id number] Admin: 09/29/19 08:33 Dose: 750 units/hr, 15 mls/hr Documented by: [id number] Cosigned by: [id number] Multivitamins 10 ml/ Thiamine HCl 100 mg/ Folic Acid 1 mg/Sodium Chloride 1,011.2 mls @ 1,011.2 mls/hr IV .Q1H ONE Stop: 09/29/19 10:14 Last Infusion: 09/29/19 11:57 Dose: 0 mls/hr Documented by: [id number] Admin: 09/29/19 10:12 Dose: 1,011.2 mls/hr Documented by: [id number] Dextrose/Sodium Chloride (D5w And 1/2nss) 1,000 mls @ 60 mls/hr IV .[id number] [facility]LES Stop: 10/29/19 09:14 Last Infusion: 09/29/19 11:04 Dose: 0 mls/hr Documented by: [id number] Admin: 09/29/19 10:12 Dose: 60 mls/hr Documented by: [id number] Potassium Chloride (K Bruce / Wtr) 10 meq in 100 mls @ 100 mls/hr IV Q1H [facility] Stop: 09/29/19 11:14 Last Infusion: 09/29/19 13:00 Dose: 0 mls/hr Documented by: [id number] Admin: 09/29/19 11:29 Dose: 100 mls/hr Documented by: [id number] Infusion: 09/29/19 11:12 Dose: 100 mls/hr Documented by: [id number] Admin: 09/29/19 10:12 Dose: 100 mls/hr Documented by: [id number] Ioversol (Optiray 320 125ml) 120 ml IV ONCE PRN PRN Reason: Interaction Checking Stop: 10/02/19 22:26 Last Admin: 09/28/19 22:28 Dose: 120 ml Documented by: [id number] Labetalol HCl (Normodyne) Confirm Administered Dose 5 mg IV .STK-MED ONE Stop: 09/28/19 22:37 Last Admin: 09/28/19 22:38 Dose: 10 mg Documented by: [id number] Cosigned by: [id number] Labetalol HCl (Normodyne) 10 mg IV NOW STA Stop: 09/28/19 22:39 Last Admin: 09/28/19 23:13 Dose: Not Given Documented by: [id number] Labetalol HCl (Normodyne) 10 mg IV Q4H PRN PRN Reason: Hypertension Stop: 10/29/19 01:57 Last Admin: 09/29/19 07:32 Dose: 10 mg Documented by: [id number] Cosigned by: [id number] Labetalol HCl (Normodyne) 5 mg IV NOW STA Stop: 09/29/19 11:24 Last Admin: 09/29/19 11:55 Dose: 5 mg Documented by: [id number] Cosigned by: [id number] Magnesium Oxide (Mag-Ox) 400 mg PO DAILY [facility] Stop: 10/29/19 08:59 Last Admin: 10/02/19 07:43 Dose: 400 mg Documented by: [id number] Admin: 10/01/19 09:57 Dose: 400 mg Documented by: [id number] Admin: 09/30/19 08:07 Dose: 400 mg Documented by: [id number] Admin: 09/29/19 10:48 Dose: 400 mg Documented by: [id number] Metoprolol Tartrate (Lopressor) 100 mg PO BID [facility] Stop: 10/29/19 08:59 Last Admin: 10/02/19 07:43 Dose: 100 mg Documented by: [id number] Admin: 10/01/19 20:43 Dose: 100 mg Documented by: [id number] Admin: 10/01/19 09:58 Dose: 100 mg Documented by: [id number] Admin: 09/30/19 21:15 Dose: 100 mg Documented by: [id number] Admin: 09/30/19 08:07 Dose: 100 mg Documented by: [id number] Admin: 09/29/19 19:58 Dose: 100 mg Documented by: [id number] Admin: 09/29/19 10:48 Dose: 100 mg Documented by: [id number] Miscellaneous (Stop Order) 1 ea N/A TODAY@1630 ONE Stop: 10/01/19 16:31 Last Admin: 10/01/19 16:31 Dose: 1 ea Documented by: [id number] Morphine Sulfate (Morphine Sulfate) 2 mg IV NOW STA Stop: 09/29/19 09:08 Last Admin: 09/29/19 09:20 Dose: 2 mg Documented by: [id number] Multivitamins/Minerals (Caltrate Plus) 1 tab PO QPM [facility] Stop: 10/29/19 20:59 Last Admin: 10/01/19 20:43 Dose: 1 tab Documented by: [id number] Admin: 09/30/19 21:17 Dose: 1 tab Documented by: [id number] Admin: 09/29/19 20:00 Dose: 1 tab Documented by: [id number] Pantoprazole Sodium (Protonix) 40 mg PO QPM [facility] Stop: 10/29/19 20:59 Last Admin: 10/01/19 20:43 Dose: 40 mg Documented by: [id number] Admin: 09/30/19 21:16 Dose: 40 mg Documented by: [id number] Admin: 09/29/19 20:00 Dose: 40 mg Documented by: [id number] Potassium Chloride (Klor-Con M20) 20 meq PO NOW STA Stop: 09/30/19 11:18 Last Admin: 09/30/19 12:28 Dose: 20 meq Documented by: [id number] Potassium Chloride (Janeth Ciel Elix) 40 meq PO ONE ONE Stop: 10/01/19 13:01 Last Admin: 10/01/19 14:12 Dose: 40 meq Documented by: [id number] Rivaroxaban (Xarelto) 15 mg PO QDD [facility] Stop: 10/31/19 16:29 Last Admin: 10/01/19 16:31 Dose: 15 mg Documented by: [id number] Sennosides (Senokot) 8.6 mg PO QAM [facility] Stop: 10/30/19 12:59 Last Admin: 10/02/19 07:43 Dose: 8.6 mg Documented by: [id number] Admin: 10/01/19 09:57 Dose: 8.6 mg Documented by: [id number] Admin: 09/30/19 13:59 Dose: 8.6 mg Documented by: [id number] Warfarin Sodium (Coumadin) 4 mg PO DAILY@1600 [facility] Stop: 09/30/19 16:01 Last Admin: 09/30/19 16:54 Dose: 4 mg Documented by: [id number] Admin: 09/29/19 16:17 Dose: 4 mg Documented by: [id number] Critical Care Time Critical Care Time: Yes Total Critical Care Time: 55 Critical care of 55 min performed to assess and manage high likelihood of life- threatening cva, involving labs and imaging performed with assessment to evaluate stroke diagnosis with frequent reassessment. This time includes bedside time, treatment discussions with patient/family/consultants, documentation time and excludes procedure time. Medical Decision Making Differential Diagnosis Differential Diagnosis includes but is not limited to ischemic Stroke, hemorrhagic stroke, bells palsy, mass, neoplasm, migraine headache, seizure, subarachnoid hemorrhage, TIA, and transient global amnesia. Medical Records Attestation: I reviewed the patient's medical records. Home Medications Current Medication List: was personally reviewed by me Laboratory Data Attestation: I reviewed the patient's lab results. Result diagrams: 10/02/19 06:55 10/02/19 06:55 Lab Results 09/28/19 09/28/19 09/28/19 Range/Units 22:30 22:30 22:30 WBC 12.41 H (4.8-10.8) K/uL RBC 4.21 (4.2-5.4) M/uL Hgb 13.9 (12.0-16.0) g/dL POC Hgb (12.0-16.0) g/dl Hct 43.6 (37-47) % POC Hct (37-47) % MCV 103.6 H (80-100) fL MCH 33.0 (25-34) pg MCHC 31.9 L (32-36) g/dL RDW Std Deviation 51.8 H (36.4-46.3) fL RDW Coeff of Maddi 13.6 (11.5-14.5) % Plt Count 392 (130-400) K/uL MPV 11.0 H (7.4-10.4) fL Immature Gran % (Auto) 0.2 % Neut % (Auto) 78.3 % Lymph % (Auto) 14.2 % [place] % (Auto) 6.7 % Eos % (Auto) 0.3 % Baso % (Auto) 0.3 % Immature Gran # (Auto) 0.02 (0.00-0.02) K/uL Neut # (Auto) 9.72 H (1.4-6.5) K/uL Lymph # (Auto) 1.76 (1.2-3.4) K/uL [place] # (Auto) 0.83 H (0.11-0.59) K/uL Eos # (Auto) 0.04 (0-0.5) K/uL Baso # (Auto) 0.04 (0-0.2) K/uL PT 13.6 H (9.0-12.0) Seconds INR 1.3 H (0.9-1.1) APTT 29.0 (21.0-31.0) Seconds PTT Ratio 1.0 POC Sodium (135-144) mmol/L Sodium 138 (136-145) mmol/L POC Potassium (3.3-5.0) mmol/L Potassium 3.8 (3.5-5.1) mmol/L POC Chloride (101-112) mmol/L Chloride 105 (98-107) mmol/L Carbon Dioxide 23 (21-32) mmol/L POC Total CO2 (24-31) mmol/L Anion Gap 9.0 (3-11) POC Anion Gap (16-25) mmol/L POC BUN (7-18) mg/dl BUN 14 (7-18) mg/dl Creatinine 0.90 (0.6-1.2) mg/dl POC Creatinine (0.6-1.3) mg/dl Est Cr Clr Drug Dosing 36.1 ml/min Est GFR ( Amer) 67.6 Est GFR (Non-Af Amer) 58.3 BUN/Creatinine Ratio 15.5 (10-20) Glucose 112 H (70-99) mg/dl POC Glucose (70-99) mg/dl POC Glucose (other) (70-99) mg/dl Calcium 9.3 (8.5-10.1) mg/dl POC Ioniz Calcium Opal (1.12-1.32) mmol/l Magnesium 1.8 (1.8-2.4) mg/dl Total Bilirubin 0.4 (0.2-1) mg/dl AST 25 (15-37) U/L ALT 26 (12-78) U/L Alkaline Phosphatase 110 (45-117) U/L Troponin I 0.020 (0-0.045) ng/ml NT-Pro-B Natriuret Pep 2302 H (0-1800) pg/ml Total Protein 8.3 H (6.4-8.2) gm/dl Albumin 3.3 L (3.4-5.0) gm/dl Globulin 5.0 H (2.5-4.0) gm/dl Albumin/Globulin Ratio 0.7 L (0.9-2) Urine Color Urine Appearance (Clear) Urine pH (4.5-7.5) Ur Specific [place] (1.000-1.030) Urine Protein (Negative) Urine Glucose (UA) (Negative) Urine Ketones (Negative) Urine Blood (Negative) Urine Nitrite (Negative) Urine Bilirubin (Negative) Urine Urobilinogen (Negative) Ur Leukocyte Esterase (Negative) Urine WBC (Auto) (0-5) /hpf Urine RBC (Auto) (0-4) /hpf U Hyaline Cast (Auto) (0-5) /lpf U Epithel Cells (Auto) (0-5) /lpf Urine Bacteria (Auto) (Negative) Ethyl Alcohol mg/dL (0-3) mg/dl Blood Type Antibody Screen 09/28/19 09/28/19 09/28/19 Range/Units 22:30 22:38 22:38 WBC (4.8-10.8) K/uL RBC (4.2-5.4) M/uL Hgb (12.0-16.0) g/dL POC Hgb (12.0-16.0) g/dl Hct (37-47) % POC Hct (37-47) % MCV (80-100) fL MCH (25-34) pg MCHC (32-36) g/dL RDW Std Deviation (36.4-46.3) fL RDW Coeff of Maddi (11.5-14.5) % Plt Count (130-400) K/uL MPV (7.4-10.4) fL Immature Gran % (Auto) % Neut % (Auto) % Lymph % (Auto) % [place] % (Auto) % Eos % (Auto) % Baso % (Auto) % Immature Gran # (Auto) (0.00-0.02) K/uL Neut # (Auto) (1.4-6.5) K/uL Lymph # (Auto) (1.2-3.4) K/uL [place] # (Auto) (0.11-0.59) K/uL Eos # (Auto) (0-0.5) K/uL Baso # (Auto) (0-0.2) K/uL PT (9.0-12.0) Seconds INR (0.9-1.1) APTT (21.0-31.0) Seconds PTT Ratio POC Sodium (135-144) mmol/L Sodium (136-145) mmol/L POC Potassium (3.3-5.0) mmol/L Potassium (3.5-5.1) mmol/L POC Chloride (101-112) mmol/L Chloride (98-107) mmol/L Carbon Dioxide (21-32) mmol/L POC Total CO2 (24-31) mmol/L Anion Gap (3-11) POC Anion Gap (16-25) mmol/L POC BUN (7-18) mg/dl BUN (7-18) mg/dl Creatinine (0.6-1.2) mg/dl POC Creatinine (0.6-1.3) mg/dl Est Cr Clr Drug Dosing ml/min Est GFR ( Amer) Est GFR (Non-Af Amer) BUN/Creatinine Ratio (10-20) Glucose (70-99) mg/dl POC Glucose (70-99) mg/dl POC Glucose (other) (70-99) mg/dl Calcium (8.5-10.1) mg/dl POC Ioniz Calcium Opal (1.12-1.32) mmol/l Magnesium (1.8-2.4) mg/dl Total Bilirubin (0.2-1) mg/dl AST (15-37) U/L ALT (12-78) U/L Alkaline Phosphatase (45-117) U/L Troponin I (0-0.045) ng/ml NT-Pro-B Natriuret Pep (0-1800) pg/ml Total Protein (6.4-8.2) gm/dl Albumin (3.4-5.0) gm/dl Globulin (2.5-4.0) gm/dl Albumin/Globulin Ratio (0.9-2) Urine Color Yellow Urine Appearance Clear (Clear) Urine pH 7.0 (4.5-7.5) Ur Specific [place] 1.011 (1.000-1.030) Urine Protein Negative (Negative) Urine Glucose (UA) Negative (Negative) Urine Ketones Negative (Negative) Urine Blood Negative (Negative) Urine Nitrite Negative (Negative) Urine Bilirubin Negative (Negative) Urine Urobilinogen Negative (Negative) Ur Leukocyte Esterase Trace H (Negative) Urine WBC (Auto) 5-10 H (0-5) /hpf Urine RBC (Auto) 0-4 (0-4) /hpf U Hyaline Cast (Auto) 1-5 (0-5) /lpf U Epithel Cells (Auto) 10-20 H (0-5) /lpf Urine Bacteria (Auto) Negative (Negative) Ethyl Alcohol mg/dL 20.3 H (0-3) mg/dl Blood Type O Positive Antibody Screen NEGATIVE 09/28/19 09/28/19 Range/Units 22:40 22:46 WBC (4.8-10.8) K/uL RBC (4.2-5.4) M/uL Hgb (12.0-16.0) g/dL POC Hgb 15.3 (12.0-16.0) g/dl Hct (37-47) % POC Hct 45 (37-47) % MCV (80-100) fL MCH (25-34) pg MCHC (32-36) g/dL RDW Std Deviation (36.4-46.3) fL RDW Coeff of Maddi (11.5-14.5) % Plt Count (130-400) K/uL MPV (7.4-10.4) fL Immature Gran % (Auto) % Neut % (Auto) % Lymph % (Auto) % [place] % (Auto) % Eos % (Auto) % Baso % (Auto) % Immature Gran # (Auto) (0.00-0.02) K/uL Neut # (Auto) (1.4-6.5) K/uL Lymph # (Auto) (1.2-3.4) K/uL [place] # (Auto) (0.11-0.59) K/uL Eos # (Auto) (0-0.5) K/uL Baso # (Auto) (0-0.2) K/uL PT (9.0-12.0) Seconds INR (0.9-1.1) APTT (21.0-31.0) Seconds PTT Ratio POC Sodium 139 (135-144) mmol/L Sodium (136-145) mmol/L POC Potassium 3.6 (3.3-5.0) mmol/L Potassium (3.5-5.1) mmol/L POC Chloride 103 (101-112) mmol/L Chloride (98-107) mmol/L Carbon Dioxide (21-32) mmol/L POC Total CO2 22 L (24-31) mmol/L Anion Gap (3-11) POC Anion Gap 18.0 (16-25) mmol/L POC BUN 14 (7-18) mg/dl BUN (7-18) mg/dl Creatinine (0.6-1.2) mg/dl POC Creatinine 0.8 (0.6-1.3) mg/dl Est Cr Clr Drug Dosing ml/min Est GFR ( Amer) Est GFR (Non-Af Amer) BUN/Creatinine Ratio (10-20) Glucose (70-99) mg/dl POC Glucose 95 (70-99) mg/dl POC Glucose (other) 116 H (70-99) mg/dl Calcium (8.5-10.1) mg/dl POC Ioniz Calcium Opal 1.23 (1.12-1.32) mmol/l Magnesium (1.8-2.4) mg/dl Total Bilirubin (0.2-1) mg/dl AST (15-37) U/L ALT (12-78) U/L Alkaline Phosphatase (45-117) U/L Troponin I (0-0.045) ng/ml NT-Pro-B Natriuret Pep (0-1800) pg/ml Total Protein (6.4-8.2) gm/dl Albumin (3.4-5.0) gm/dl Globulin (2.5-4.0) gm/dl Albumin/Globulin Ratio (0.9-2) Urine Color Urine Appearance (Clear) Urine pH (4.5-7.5) Ur Specific [place] (1.000-1.030) Urine Protein (Negative) Urine Glucose (UA) (Negative) Urine Ketones (Negative) Urine Blood (Negative) Urine Nitrite (Negative) Urine Bilirubin (Negative) Urine Urobilinogen (Negative) Ur Leukocyte Esterase (Negative) Urine WBC (Auto) (0-5) /hpf Urine RBC (Auto) (0-4) /hpf U Hyaline Cast (Auto) (0-5) /lpf U Epithel Cells (Auto) (0-5) /lpf Urine Bacteria (Auto) (Negative) Ethyl Alcohol mg/dL (0-3) mg/dl Blood Type Antibody Screen Imaging Data My Impression: X-ray: I interpreted the following studies. Chest: A single view study of the chest was reviewed and was negative for cardiomegaly, focal infiltrate, effusion, or wide mediastinum. Generous mediastinum with tortuous aorta noted. Increased interstitial markings noted bilaterally. No fulminant pulmonary edema. Radiologist's Impression: CT head: There is mucosal thickening filling the left maxillary sinus most of the right maxillary sinus with previous surgical resection of the medial sinus arenas and septations dividing the ethmoid air cells. This is consistent with acute on chronic sinusitis. No skull fracture or scalp hematoma. There is a normal gyral pattern of the brain. There is no mass lesion or midline shift. There is mild central cerebral volume loss and mild to moderate periventricular white matter low-density consistent with chronic small vessel disease. No evidence of acute large vessel infarct or intracranial hemorrhage. Radiologist: Elder Priest MD CTA head: There is moderate calcification of the cavernous portion of the distal internal carotid arteries bilaterally with up to 30% stenosis bilaterally. The A1 and M1 segments are widely patent bilaterally. The distal vertebral arteries are mildly tortuous but patent bilaterally. The basilar artery is unremarkable. The right P1 segment is hypoplastic with origin of the right posterior cerebral artery from the anterior circulation. The visualized portions of the anterior, middle, and posterior cerebral arteries appear unremarkable. No aneurysm, vascular formation, or arterial thrombus is identified. Radiologist: Elder Priest MD CTA neck: Comparison to MR angiography of the neck from October 10, 2016. The thoracic aorta is mildly calcified but nondilated. There is no aneurysm or dissection. Great vessels are tortuous. There is a large calcified plaque which appears to cause at least 90% stenosis of the origin of the subclavian artery. Densely calcified plaque in the right carotid bifurcation and proximal right internal carotid artery concept to 60% stenosis of the right internal carotid artery. Calcified plaque in the left carotid bifurcation there is an ulcerated plaque in the left carotid bulb with possible small nonflow limiting focal intimal flap. No significant stenosis. The vertebral arteries are somewhat small but widely patent bilaterally. No focal stenosis or dissection. Moderate to severe multilevel degenerative disc disease and facet arthrosis throughout the cervical spine. No acute fracture or canal compromise is identified. Mild fibrotic changes in the lungs. Radiologist: Elder Priest MD ECG Data Attestation: I personally reviewed and interpreted this ECG as follows: Indication: + altered mental status Rate (beats per minute): 96 Rhythm: + atrial fibrillation ECG Intervals/blocks: + Normal QRS and + Normal QT ECG [place]: + Normal ECG ST segments: + Nonspecific ST abnormalities Comparison ECG Date: from (07/07/2019) Change: no significant change Blood Pressure Blood Pressure Findings: Elevated blood pressure Blood Pressure Disposition: further management by hospitalist MDM Narrative Pt presenting with stroke like symptoms, however report from EMS was pt last seen well at 1500. This would put her >7 hr from onset of symptoms and pt also on coumadin for chronic a.fib. Ct and labs performed and reviewed. VS stable. Pt initially markedly hypertensive, this did improve with medication. With this lower BP, there was slight improvement in her speech/comprehension also. Daughter updated on pt's condition. I did discuss the CT findings and case with the radiologist as well as with neurology via Debi given pt subtherapeutic to see if she was a candidate for any additional therapy. Pt started on heparin drip as she was subtherapeutic and also given unclear chronicity of possible focal dissection of carotid. Case discussed with hospitalist. An order was placed for continuous cardiac monitoring. The monitor shows a rate of _90 with _atrial fibrillation_ rhythm. Impression & Plan Acute CVA (cerebrovascular accident), Subtherapeutic international normalized ratio (INR), Uncontrolled hypertension Discharge Plan Visit Data *Final* Discharge Date/Time: 09/29/19 01:32 Chief Complaint: Stroke/CVA Symptoms Stated Complaint: STROKE SX, ETOH ED Provider: Yulia Sanchez Discharge Problem: Acute CVA (cerebrovascular accident), Subtherapeutic international normalized ratio (INR), Uncontrolled hypertension Patient Disposition: Admitted As Inpatient Condition: Fair Discharge Instructions Interventions: ED Discharge Assessment Last Done: 09/29/19 01:32
[2019-09-29] MEDS ORDERED: Heparin IV Low Dose *NO* Bolus ONE (00:02)
[2019-09-29] MEDS ORDERED: FUROSEMIDE 40 MG/4 ML VIAL IV STA (00:04)
[2019-09-29] MEDS ORDERED: HEPARIN SODIUM/DEXTROSE 25,000 UNITS/500 ML BAG IV SCH (00:15)
[2019-09-29] MEDS ORDERED: ONDANSETRON INJ 2 MG/ML 2 ML VIAL IV PRN (01:58)
[2019-09-29] MEDS ORDERED: PHARMACIST DISCHARGE MED REC CONSULT PRN (01:58)
[2019-09-29] MEDS ORDERED: NITROGLYCERIN SL 0.4 MG/TAB TAB SL PRN (01:58)
[2019-09-29] MEDS ORDERED: SODIUM CHLORIDE 0.9% 1000ML 1,000 ML IV SCH (01:58)
[2019-09-29] MEDS ORDERED: ACETAMINOPHEN 325 MG TAB PO PRN (01:58)
[2019-09-29] MEDS ORDERED: LABETALOL HCL IV 5 MG/ML 20ML IV PRN ×2 (01:58→12:00)
--- NOTE | 2019-09-29 03:30 | History and Physical Report ---
DATE OF ADMISSION: 09/29/2019 CHIEF COMPLAINT: Stroke-like symptoms. HISTORY OF PRESENT ILLNESS: This is an 84-year-old female with past medical history significant for hyperlipidemia, obstructive sleep apnea on CPAP, nonrheumatic aortic sclerosis, atrial fibrillation, hypertension, LVH, diverticulosis, GERD, lumbar disc disease, senile osteoporosis, Raynaud phenomena, history of humerus fracture, history of left MCA CVA, on Plavix, who was brought in because of stroke-like symptoms. The patient seems to live alone. She is quarantining and daughter lives 3 hours away and she calls her every day and around 8:00 to 9:00 p.m. when daughter called her speech seemed to be dysarthric and she called EMS and she also called neighbors. When neighbors and EMS came in, she was dysarthric and sometimes aphasic, but was able to move her extremities. As per neighbor, they saw her around 3:00 p.m. and she was fine at that time, so last known well was about 3:00 p.m. By the time the patient came in to the ER, she was about 7 hours from 3:00 p.m. and stroke alert was not called. CT of the head was done which is unremarkable, but CTA of the head and neck also done which shows some 90% stenosis of the origin of the subclavian artery and also right internal carotid artery, 60% stenosis . At the left carotid bifurcation is an ulcerative plaque. When the ER physician called stat radiologist and asked about the dissection, he was not sure and said probably there could be some dissection. The patient was supposed to be on Coumadin, INR is subtherapeutic at 1.3, so she was started on IV heparin. Then the ER physician also called the [employer] stroke neurologist electronic component processor and explained things and they agreed with IV heparin and sergio do a full stroke workup. The patient's blood pressure was running high, she received a dose of IV labetalol. Currently now she is able to speak. When I spoke with her, she is talking, but not answering appropriately. When asked one question, she is answering something else, but able to obey the simple commands and lift her upper extremities and move her lower extremities. ER physician was able to talk to her daughter and as per her the patient seemed to be very sharp and she was learning piano during this lock down and she was quarantining well. Tried to call her daughter, but could not reach her, [facility]. ALLERGIES: SULFA ANTIBIOTICS. PAST MEDICAL HISTORY: As mentioned above. PAST SURGICAL HISTORY: Cardiac catheterization, colonoscopy, exploration of abdomen with lysis of adhesions, intestinal surgery for twisted colon, lumbar laminotomy, appendectomy for acute bowel ischemia secondary to adhesions, tonsillectomy, right shoulder surgery, total abdominal hysterectomy with removal of the tubes. MEDICATIONS: The patient is on ferrous sulfate 325 mg p.o. daily, folic acid 1 mg p.o. daily, Lipitor 80 mg p.o. daily, Lopressor 100 mg p.o. b.i.d., lisinopril 20 mg p.o. b.i.d., MetroGel applied to affected areas b.i.d., Prolia 60 mg under skin every 6 months, clonidine 0.2 mg p.o. b.i.d., Coumadin 2 mg p.o. daily, omeprazole 20 mg p.o. daily, magnesium 200 mg p.o. daily, vitamin C 500 mg p.o. daily, Caltrate 600 plus D 1 tablet daily, multivitamins 1 tablet daily. FAMILY HISTORY: Significant for mother had colon cancer; father had diabetes and heart disorder; brother has diabetes. SOCIAL HISTORY: , lives alone. No smoking. Alcohol, glass of wine daily. As per EPIC, no drug use. REVIEW OF SYSTEMS: Unobtainable at this time. PHYSICAL EXAMINATION: GENERAL: The patient is alert and awake, not oriented. HEENT: No pallor, no icterus. Pupils equal, round, and reactive to light. NECK: No JVD, no neck masses seen. CARDIOVASCULAR: S1, S2 heard, regular rate and rhythm, no murmur, no gallop. RESPIRATORY SYSTEM: Normal AP diameter. No accessory muscle use. No wheezing, no crackles. ABDOMEN: Soft, bowel sounds present. No distention, no guarding. CENTRAL NERVOUS SYSTEM: Alert and awake. Speech is currently clear, but answering tangentially. Obeys simple commands. Able to lift her extremities. Able to do alternating movements of her palms. EXTREMITIES: No edema, no erythema. LABORATORY DATA: WBC 12.4, hemoglobin 13.9, hematocrit 43.6, platelets 392. PT 13.6, INR 1.3, APTT 29. Sodium 139, potassium 3.8, chloride 103, bicarbonate 23, BUN 14, creatinine 0.9, serum glucose 112, calcium 9.3, total bilirubin 0.4, AST 25, ALT 26, alkaline phosphatase 110. Troponin I of 0.02. BNP 2300. Urinalysis, trace leukocyte esterase. Ethyl alcohol 20. IMAGING DATA: CT of the head, preliminary report, no acute findings. CTA of the head, no acute findings. CTA of the neck, 90% stenosis of the origin of the subclavian artery with ulcerative plaque in the left carotid bulb, 60% stenosis of the proximal right internal carotid artery. Chest x-ray, pulmonary congestion. EKG: Atrial fibrillation at a rate of 96, no significant change from previous EKG. ASSESSMENT AND PLAN: This is an 84-year-old female who presents with stroke-like symptoms. 1. Stroke-like symptoms with dysarthria and aphasia, currently speaking, but answering differently for questions. Initial workup with CT of the head was okay. CTA of the head, preliminary report okay. CTA of the neck, preliminary report shows some questionable ulcerative plaque on the left internal carotid bulb. Questionable dissection. ER physician started on IV heparin which we will continue. History of cerebrovascular accident in the past, on aspirin and statin, which we will continue, and we will do a full stroke workup with MRI scan and echocardiogram. Neuro checks. Neurology consult in a.m. Speech evaluation, PT, OT evaluation in the a.m. Closely monitor in the tele floor. 2. Hypertensive urgency. Blood pressure was high running 217/141 when she came in. Received a dose of labetalol, and is currently 170/110. We will allow permissive hypertension. We will continue her home p.o. medications and we will place on IV labetalol p.r.n. for systolic blood pressure greater than 190 and closely monitor. 3. Possible congestive heart failure with pulmonary congestion on chest x-ray and she was short of breath when she came in. Received a dose of Lasix. We will follow the echocardiogram. Currently n.p.o. Placed on gentle fluids. Monitor for any volume overload. 4. History of atrial fibrillation, rate controlled on Lopressor. Supposed to be on Coumadin, but INR subtherapeutic. Recently she was in the ER on 09/11/2019 with a fall and at that vitamin K was given. Currently on IV heparin. We will hold Coumadin for now. 5. History of left ventricular hypertrophy. We will follow the echocardiogram. 6. Gastroesophageal reflux disease, on PPI. 7. Sleep apnea, on CPAP. 8. Deep venous thrombosis prophylaxis, sequential compression devices. DISPOSITION: We will closely monitor in the tele floor. Code status, we will keep her full code for now until we speak to the daughter. RADHA
--- NOTE | 2019-09-29 07:06 | CT Scan Report ---
HEAD CT NONCONTRAST CT DOSE: HISTORY: Stroke evaluation TECHNIQUE: Multiaxial CT images of the head were performed without the use of intravenous contrast. A utomated exposure control was utilized for this study. A dose lowering technique was utilized adheri ng to the principles of ALARA. Comparison: Head CT 09/07/2019. Findings: Opacified left maxillary sinus and near complete opacification the right maxillary sinus, u nchanged. The mastoid air cells are clear. The calvarium and skull base are intact. There is no mass, hematoma, midline shift, acute infarct. White matter hypodensity is nonspecific but suggestive of mi crovascular ischemic change. The ventricles and sulci demonstrate mild age-related involutional bonilla es. Impression: No significant change compared to the prior study. No acute intracranial abnormality. Sinus disease p ersists as described above. ACT 112: Negative or not required by law. Electronically signed by: Edgar Barroso M.D. 09/29/2019 7:04 AM
[2019-09-29 07:11] LABS: Basophils # (auto) 0.02 K/uL (0-0.2); Basophils % (auto) 0.3 %; Eosinophils # (auto) 0.04 K/uL (0-0.5); Eosinophils % (auto) 0.5 %; Hematocrit (blood only) 38.9 % (37-47); Immature Granulocytes # (auto) 0.01 K/uL (0.00-0.02); Immature Granulocytes % (auto) 0.1 %; Lymphocytes % (auto) 26.9 %; Mean Corpuscular Hemoglobin 33.7 pg (25-34); Mean Corpuscular Hgb Conc 33.4 g/dL (32-36); Mean Corpuscular Volume 100.8 fL (80-100); Mean Platelet Volume 10.8 fL (7.4-10.4); Monocytes # (auto) 0.92 K/uL (0.11-0.59); Monocytes % (auto) 12.4 %; Neutrophils # (auto) 4.44 K/uL (1.4-6.5); Neutrophils % (auto) 59.8 %; Platelet Count 343 K/uL (130-400); RDW Coefficient of Variation 13.7 % (11.5-14.5); RDW Standard Deviation 50.4 fL (36.4-46.3); Red Blood Count 3.86 M/uL (4.2-5.4); White Blood Count 7.43 K/uL (4.8-10.8)
--- NOTE | 2019-09-29 07:20 | CT Scan Report ---
HEAD CTA HISTORY: Stroke symptoms. Stroke evaluation TECHNIQUE: Multiaxial CT images of the head were performed both before and after the intravenous admi nistration of contrast to evaluate the major cerebral vessels. Maximum intensity projection images we re also obtained. A dose lowering technique was utilized adhering to the principles of ALARA. COMPARISON: Head CT 09/28/2019. FINDINGS: There is no mass, hematoma, midline shift, or acute infarct. Moderate calcified plaque with in the bilateral carotid siphons. Visualized intracranial internal carotid arteries, distal vertebral arteries, and basilar artery are widely patent. There is no significant stenosis, occlusion, or aneu rysm seen within the bilateral ACAs, MCAs, or property preservation specialist. IMPRESSION: No significant stenosis, occlusion, or aneurysm within the [place]. ACT 112: Negative or not required by law. Electronically signed by: Edgar Barroso M.D. 09/29/2019 7:19 AM
[2019-09-29 07:35] LABS: Partial Thromboplastin Ratio 1.4; Partial Thromboplastin Time 39.9 Seconds (21.0-31.0)
--- NOTE | 2019-09-29 07:36 | CT Scan Report ---
CT ANGIOGRAM OF THE NECK CLINICAL HISTORY: Strokelike symptoms. COMPARISON STUDY: MR angiogram of the neck dated 10/10/2016. TECHNIQUE: Following the IV administration of 120 of Optiray 320, CT angiogram of the neck was perfor med from the aortic arch to the skull base. Images are reviewed in the axial, sagittal, and coronal p lanes. 3-D MIPS images are created and assessed. IV contrast was administered without complication. A ll measurements were calculated based on NASCET criteria. A dose lowering technique was utilized adh ering to the principles of ALARA. The examination is degraded by motion artifact. FINDINGS: Thoracic aorta: There is atherosclerotic calcification of the thoracic aorta. Visualized portions of the thoracic aorta are normal in caliber. The aortic arch demonstrates standard 3-vessel anatomy. Right carotid arterial system: The right common carotid artery is widely patent. Calcified plaque cau ses approximately 50% luminal narrowing of the proximal internal carotid artery approximately 8 mm ab ove the bifurcation. The remainder of the internal carotid artery is patent. Left carotid arterial system: The left common carotid artery is widely patent, as are the left applications intern al and external carotid arteries. Calcified plaque is noted in the carotid bulb. Turbulent flow is no martha in the bulb. No dissection is seen. Vertebral arteries: The vertebral arteries are patent bilaterally and codominant. Subclavian arteries: There is at least moderate stenosis at the origin of the left subclavian artery. The subclavian arteries are otherwise patent bilaterally. Intracranial vasculature: The visualized intracranial vessels at the skull base are patent. Jugular veins: Widely patent bilaterally. Brain parenchyma: The visualized brain parenchyma the skull base is within normal limits. Lung apices: Subpleural reticulation is noted in the upper lobes and may correspond to interstitial l eloisa disease. Diffuse intraocular septal thickening suggests a component of congestive failure. There are prominent subcentimeter mediastinal lymph nodes. Soft tissues: The visualized pharyngeal soft tissues are normal in appearance noting angiographic pha se technique. The oropharyngeal airway appears widely patent. The salivary and thyroid glands are nor mal in appearance. No cervical lymphadenopathy is seen. Skeletal structures: The skeletal structures are osteopenic. The visualized calvarium at the skull ba se appears intact. The imaged cervical spine is maintained noting multilevel spondylosis. No lytic or blastic lesion is seen. Sinuses and mastoids: There is evidence of previous paranasal sinus surgery. There is subtotal opacif ication of the maxillary sinuses bilaterally. There is mild mucosal thickening in the sphenoid and et hmoid sinuses. There is a trace right mastoid effusion. The left mastoid air cells are well pneumatiz ed. IMPRESSION: 1. There is approximately 50% short segment stenosis of the proximal right internal carotid artery. 2. The left carotid artery in the vertebral arteries are patent bilaterally. 3. There is at least moderate stenosis the origin of the left subclavian artery. 4. Additional findings as above. ACT 112: Negative or not required by law. Electronically signed by: Kannan Burgess M.D. 09/29/2019 7:35 AM
[2019-09-29 07:39] LABS: BUN Creatinine Ratio 14.8 (10-20); Calcium 9.4 mg/dl (8.5-10.1); Creatinine Clr Calc Pharmacy 41.7 ml/min; Est GFR (African American) 80.3; Est GFR (Non-African American) 69.3; Potassium 3.1 mmol/L (3.5-5.1)
[2019-09-29] MEDS ORDERED: HEPARIN IV BOLUS 4,000 UNITS in SYRINGE 0 ML IV ONE ×2 (07:58→08:00)
--- NOTE | 2019-09-29 07:59 | XRay Report ---
XR chest 1V portable CLINICAL HISTORY: possible cva dyspnea COMPARISON STUDY: 07/04/2019 FINDINGS: Diffuse increase in interstitial markings throughout both hemithoraces. Mild stable cardiom egaly. Diaphragms are smooth. IMPRESSION: Diffuse bilateral interstitial prominence possibly inflammatory and/or related to inters titial pulmonary edema. ACT 112: Negative or not required by law. The above report was generated using voice recognition software. It may contain grammatical, syntax or spelling errors. Electronically signed by: Santi Aguilar M.D. 09/29/2019 7:57 AM
[2019-09-29] MEDS ORDERED: Nursing to Pharmacy Communication ONE (08:13)
[2019-09-29 08:29] LABS: Estimated Average Glucose 111 mg/dl; Hemoglobin A1C 5.5 % (4.5-5.6)
[2019-09-29] MEDS: HEPARIN SODIUM/DEXTROSE 25,000 UNITS/500 ML BAG IV SCH (08:33)
[2019-09-29] MEDS ORDERED: ACETAMINOPHEN 65 ML IV PRN (08:53)
[2019-09-29] MEDS ORDERED: lisinopriL 20 MG TAB PO SCH (09:00)
[2019-09-29] MEDS ORDERED: MoRPHine SULFATE 2 MG/ML CARP IV STA (09:07)
[2019-09-29] MEDS ORDERED: D5W AND 1/2NSS 1,000 ML IV SCH (09:15)
[2019-09-29] MEDS ORDERED: MULTI-VITAMIN INFUSION 10 ML, THIAMINE HCL 100 MG, FOLIC ACID 1 MG in SODIUM CHLORIDE 0... IV ONE (09:15)
[2019-09-29] MEDS ORDERED: POTASSIUM ACETATE 10 MEQ in 0.9 % SODIUM CHLORIDE 100 ML IV SCH (09:30)
[2019-09-29] MEDS: POTASSIUM CHLORIDE / WTR 10 MEQ/100 ML PLCT IV SCH ×2 (10:12→11:29)
[2019-09-29] MEDS: METOPROLOL TARTRATE 100 MG TAB PO SCH ×2 (10:48→19:58)
[2019-09-29] MEDS: FERROUS SULFATE 325 MG TAB PO SCH ×2 (10:48→19:59)
[2019-09-29] MEDS: MAGNESIUM OXIDE 400 MG TAB PO SCH (10:48)
[2019-09-29] MEDS: cloNIDine HCL 0.1 MG TAB PO SCH ×2 (10:48→19:59)
[2019-09-29] MEDS: CLOPIDOGREL BISULFATE 75 MG TAB PO SCH (10:49)
[2019-09-29] MEDS ORDERED: LABETALOL HCL IV 5 MG/ML 20ML IV STA (11:23)
--- NOTE | 2019-09-29 11:36 | Hospitalist Progress Note ---
Date of Service September 29, 2019 Assessment & Plan (1) Stroke-like symptoms: Subclavian artery stenosis Hypertensive urgency -reported history of left CVA in the past and on plavix and coumadin at home -This is an 84-year-old female who presents with stroke-like symptoms mostly appears to be affecting speech -as per admission and notes, "She is quarantining and daughter lives 3 hours away and she calls her every day and around 8:00 to 9:00 p.m. when daughter called her speech seemed to be dysarthric and she called EMS and she also called neighbors. When neighbors and EMS came in, she was dysarthric and sometimes aphasic, but was able to move her extremities. As per neighbor, they saw her around 3:00 p.m. and she was fine at that time, so last known well was about 3:00 p.m. By the time the patient came in to the ER, she was about 7 hours from 3:00 p.m. and stroke alert was not called. -In the ED, the patient was started on IV heparin because of subtherapeutic INR for anticoagulation of atrial fibrillation -CT head: No acute intracranial abnormality. -CTA neck: here is approximately 50% short segment stenosis of the proximal right internal carotid artery, The left carotid artery in the vertebral arteries are patent bilaterally, There is at least moderate stenosis the origin of the left subclavian artery. -echocardiogram: 55 to 60% EF, no atrial septal defect recorded; no evidence of congestive heart failure -CTA head: No significant stenosis, occlusion, or aneurysm within the [place]. -Brain MRI: results pending -Ultrasound of right lower extremity pending -Vascular surgery consult was asked to evaluate subclavian artery stenosis -Neurology consult pending -patient passed speech and swallow testing, was empirically started on IV labetalol, as of 09/29/2019 noon time she can take home medication of clonidine 0.2 mg BID, metoprolol 100 mg BID, lisinopril 20 mg BID, also added amlodipine 10 mg daily, adjust labetalol IV as needed -will need PT/OT evaluations Atrial Fibrillation -continue IV heparin, will benefit from bridging to therapeutic INR -beta marva for rate control -monitor on telemetry -don't see evidence of congestive heart failure on echocardiogram reports or clear evidence of [facility] admission CXR -there is elevated BNP on admission as 2300, monitor fluid status closely -can continue statin Right calf pain -check right lower extremity ultrasound results Sleep apnea, on CPAP. Gastroesophageal reflux disease -can give PPI DVT prophylaxis: IV heparin Admission and Anticipated Discharge Date Admission Date: September 29, 2019 Subjective Patient seen and examined at bedside multiple times. She is cooperative and appears to have comprehension of what is being told to her. But her speech is soft spoken and not able to answer the questions in long sentences. When asking questions about her home life, she cannot really answer them. Patient does not express acute pain other than right calf pain, and left arm pain when IV potassium running. breathing on room air. no acute shortness of breath but sometimes patient appears anxious. Review of Systems Review of Systems: Other (unable to obtain all review of systems as patient with some speech limitations) Physical Exam Constitutional: + thin Eyes: PERRL, conjunctivae normal, anicteric sclerae EOM intact bilaterally ENMT: external ear and nose normal, oropharynx normal Neck: normal visual inspection Respiratory: normal respiratory effort, lungs clear to auscultation Cardiovascular: Rate/Rhythm: regular rate Gastrointestinal (Abdomen): normal bowel sounds, soft, nontender, no hepatosplenomegaly Musculoskeletal: Head/Neck/Chest: normocephalic and head atraumatic Neurologic: moves all extremities Psychiatric: Orientation: alert and cooperative Results & Data Results & Data ([facility]) Vital Signs (Past 12 Hours) Vital Signs Temp Pulse Pulse Resp BP BP Pulse Ox 09/29/19 10:20 80 199/101 H 09/29/19 09:20 87 187/130 H 09/29/19 08:20 78 136/98 09/29/19 08:07 36.4 C L 77 142/107 H 09/29/19 08:00 74 09/29/19 07:20 81 194/126 H 09/29/19 04:00 36.8 C 78 16 182/105 H 98 09/29/19 02:08 37.0 C 72 16 214/104 H 95 09/29/19 01:32 92 H 18 172/105 H 95 09/29/19 00:05 84 18 178/110 H 99
--- NOTE | 2019-09-29 12:09 | Consultation ---
Date of Consultation September 29, 2019 Assessment & Plan (1) Carotid stenosis, bilateral: Pt with very mild BL carotid stenosis and approx 50% R subclavian art stenosis. No indications for vascular surgical intervention at this time. Please call if needed. Present on Admission?: Yes History of Present Illness Reason for Consultation: carotid/subclavian stenosis, CVA Attending Physician: Drew Lees MD History of Present Illness 84 yo f with hx of HTN, a fib, GERD, hyperlipidema, admitted with sx of CVA, seen in consultation for mild carotid stenosis and mild R subclavian art stenosis. Pt with dysarthria/dysphasia that began yesterday sometime. Daughter noted sx when she spoke with her on phone and had her brought to ED. Pt living independently up to now. Unable to get any reliable information from pt d/t dysparthria. Pt denies pain or weakness at this time. CTA neck demonstrates mild carotid stenosis BL of less than 50%, and approx 50% stenosis of R subclavian art. Allergies Allergy/AdvReac Type Severity Reaction Status Date / Time pneumococcal vaccine Allergy Mild DIZZINESS Verified 09/28/19 23:24 AND FELT LOUSY Sulfa (Sulfonamide Allergy Unknown high Verified 09/28/19 23:24 Antibiotics) fever/ rash aspirin AdvReac Unknown epistaxis Verified 09/28/19 23:24 Home Medications Home Medications Medication Instructions Recorded Confirmed Type Caltrate 600 plus D 1 tab PO QPM 07/04/19 09/28/19 History Prolia 60 mg SUBCUT .Q6MO 07/04/19 09/28/19 History ascorbic acid (vitamin C) [Vitamin 500 mg PO QPM 07/04/19 09/28/19 History C] atorvastatin [Lipitor] 80 mg PO HS 07/04/19 09/28/19 History clonidine HCl 0.2 mg PO BID 07/04/19 09/28/19 History clopidogrel [Plavix] 75 mg PO QAM 07/04/19 09/28/19 History lisinopril 20 mg PO BID 07/04/19 09/28/19 History metoprolol tartrate 100 mg PO BID 07/04/19 09/28/19 History multivitamin 1 tab PO QPM 07/04/19 09/28/19 History omeprazole 20 mg PO QPM 07/04/19 09/28/19 History warfarin 2 mg PO DAILY 07/04/19 09/28/19 History folic acid 1 mg PO QPM 07/24/19 09/28/19 History ferrous sulfate [FeroSul] 325 mg PO BID 09/07/19 09/28/19 History magnesium oxide 250 mg PO DAILY 09/07/19 09/28/19 History metronidazole 1 applic TOPICAL DAILY 09/28/19 09/28/19 History Patient History Medical History Anemia Cardiac murmur "told years ago" Cataract Chronic atrial fibrillation Chronic back pain Diverticular disease Diverticulosis Exertional dyspnea with stairs FH: total abdominal hysterectomy and bilateral salpingo-oophorectomy GERD (gastroesophageal reflux disease) GI bleed "blood in stool" History of CVA (cerebrovascular accident) L MCA CVA History of ischemic bowel disease (Chronic) HLD (hyperlipidemia) HTN (hypertension) Inguinal hernia Osteoarthritis Osteoporosis (Inactive) Surgical History H/O exploratory laparotomy (Inactive) "H/O Volvulus, adhesions and ischemic bowel/appendix" H/O laminectomy (Inactive) H/O shoulder surgery (Inactive) H/O shoulder surgery right History of adenoidectomy History of appendectomy History of cardiac cath [place], "years ago" History of colonoscopy History of discectomy History of surgery small bowel malrotation History of tonsillectomy Hx of cardiac cath (Inactive) Hx of tonsillectomy (Inactive) S/P ELEN-BSO (Inactive) Status post Mohs surgery Family History Mother Colorectal cancer Family hx of colon cancer Father Diabetes Brother Diabetes Social History Preferred Language: Spanish Communication Ability: Effective 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 Beliefs That Will Affect Care: None marital status: / Current Living Situation: Alone Other Information That Helps Us Care for You: No Feels Safe at Home: Yes Smoking Status: Unknown if ever smoked Hx Alcohol Use: No Hx Substance Use: No Review of Systems Review of Systems: Unobtainable due to cognitive status Physical Exam Constitutional: WD/WN, vitals as above healthy appearing, cooperative and comfortable; not in distress Eyes: PERRL, conjunctivae normal, anicteric sclerae ENMT: external ear and nose normal, oropharynx normal Ears: no hearing impairment Neck: trachea midline, no thyromegaly normal visual inspection Respiratory: normal respiratory effort, lungs clear to auscultation Cardiovascular: RRR, no murmur, no edema Vessels: femoral pulses present, posterior tibial pulses present, dorsalis pedis pulses present, brachial pulses present and radial pulses present; + abnormal peripheral pulses Extremities: normal capillary refill; no edema Gastrointestinal (Abdomen): normal bowel sounds, soft, nontender, no hepatosplenomegaly Musculoskeletal: no cyanosis or clubbing, extremities motor strength 5/5 Skin: no rashes, warm and dry Neurologic: moves all extremities, awake and + confused; no focal motor deficits Speech / Cognition: + abnormal speech and + expressive aphasia Psychiatric: Orientation: alert and oriented to person; + not oriented to place and + not oriented to time Results & Data Vital Signs (Past 12 Hours) Vital Signs Temp Pulse Pulse Resp BP BP Pulse Ox 09/29/19 10:20 80 199/101 H 09/29/19 09:20 87 187/130 H 09/29/19 08:20 78 136/98 09/29/19 08:07 36.4 C L 77 142/107 H 09/29/19 08:00 74 09/29/19 07:20 81 194/126 H 09/29/19 04:00 36.8 C 78 16 182/105 H 98 09/29/19 02:08 37.0 C 72 16 214/104 H 95 09/29/19 01:32 92 H 18 172/105 H 95 09/29/19 00:05 84 18 178/110 H 99
[2019-09-29] MEDS ORDERED: GADOBUTROL 65ML VIAL IV PRN (12:43)
--- NOTE | 2019-09-29 12:54 | Magnetic Resonance Report ---
Brain MRI WITH AND WITHOUT CONTRAST HISTORY: Stroke symptoms. Difficulty with speech. TECHNIQUE: Multiplanar multisequence MRI of the brain was performed both before and after the intrave nous administration of contrast. COMPARISON STUDY: Head CT 09/28/2019. Brain MRI 10/10/2016. FINDINGS: Small foci of restricted diffusion seen within the periventricular white matter of the left temporal and parietal lobes consistent with acute infarcts. These are within the left MCA distributi on. Dominant infarct within the left parietal lobe on image 13 measures 12 mm. Near-complete opacific ation of the maxillary sinuses, unchanged. The mastoid air cells are clear. The major vascular flow v oids at the skull base are well-maintained. The ventricles and sulci demonstrate moderate age-related involutional changes. Postcontrast sequences show no areas of abnormal enhancement. There is no mass , hematoma, or midline shift. Periventricular white matter T2 hyperintensity likely represents microv ascular ischemic change. Old punctate lacunar infarct within the right cerebellar hemisphere. The mid line structures are intact. IMPRESSION: 1. Small foci of restricted diffusion seen within the periventricular white matter of the left tempor al and parietal lobes consistent with acute left MCA territory infarct. 2. Atrophy and microvascular ischemic changes are again noted. 3. No change in the maxillary sinus disease. ACT 112: Negative or not required by law. Electronically signed by: Edgar Barroso M.D. 09/29/2019 12:53 PM
[2019-09-29] MEDS: AMLODIPINE BESYLATE 5 MG TAB PO SCH (13:21)
[2019-09-29] MEDS: ENALAPRIL MALEATE 10 MG TAB PO SCH ×2 (13:21→20:01)
--- NOTE | 2019-09-29 13:26 | Neurology Consultation ---
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 Etiology likely cardioembolic due to subtherapeutic INR. On examine patient had moderate to severe receptive and expressive aphasia. Agree with Coumadin and Heparin gtt bridge. Goal INR 2-3. Continue Neuro checks with STAT CT head non contrast for acute change in mental status. Agree with resuming slowing normalizing blood pressures. Goal SBP<140 mm Hg and DBP<90 mm Hg. Vacular surgery consulted regarding peripheral vascular disease. No surgical intervention recommended. Agree with resuming home Plavix. agree with resuming high intensity statin. Speech therapy for rehabilitation needs. History of Present Illness Reason for Consultation: Dysarthria Attending Physician: Drew Lees MD History of Present Illness An 7 year old woman with PMH significant for atrial firbrillation on Coumad, obstructive sleep apnea on CPAP, nonrheumatic aortic sclerosis, hypertension, history of left MCA CVA, on Plavix, who was brought in because of dysarthria. Daughter noticed symptoms yesterday when she called around 8:00 to 9:00 p.m. and speech seemed to be dysarthric and she called EMS and she also called neighbors. When neighbors and EMS came in, she was dysarthric and sometimes aphasic, but was able to move her extremities. As per neighbor, they saw her around 3:00 p.m. and she was fine at that time, so last known well was about 3:00 p.m. By the time the patient came in to the ER, she was about 7 hours from 3:00 p.m. and stroke alert was not called. CT of the head was done which is unremarkable, but CTA of the head and neck also done which shows some 90% stenosis of the origin of the subclavian artery and also right internal carotid artery, 50% stenosis . The patient was supposed to be on Coumadin, INR is subtherapeutic at 1.3, so she was started on IV heparin. Allergies Allergy/AdvReac Type Severity Reaction Status Date / Time pneumococcal vaccine Allergy Mild DIZZINESS Verified 09/28/19 23:24 AND FELT LOUSY Sulfa (Sulfonamide Allergy Unknown high Verified 09/28/19 23:24 Antibiotics) fever/ rash aspirin AdvReac Unknown epistaxis Verified 09/28/19 23:24 Home Medications Home Medications Medication Instructions Recorded Confirmed Type Caltrate 600 plus D 1 tab PO QPM 07/04/19 09/28/19 History Prolia 60 mg SUBCUT .Q6MO 07/04/19 09/28/19 History ascorbic acid (vitamin C) [Vitamin 500 mg PO QPM 07/04/19 09/28/19 History C] atorvastatin [Lipitor] 80 mg PO HS 07/04/19 09/28/19 History clonidine HCl 0.2 mg PO BID 07/04/19 09/28/19 History clopidogrel [Plavix] 75 mg PO QAM 07/04/19 09/28/19 History lisinopril 20 mg PO BID 07/04/19 09/28/19 History metoprolol tartrate 100 mg PO BID 07/04/19 09/28/19 History multivitamin 1 tab PO QPM 07/04/19 09/28/19 History omeprazole 20 mg PO QPM 07/04/19 09/28/19 History warfarin 2 mg PO DAILY 07/04/19 09/28/19 History folic acid 1 mg PO QPM 07/24/19 09/28/19 History ferrous sulfate [FeroSul] 325 mg PO BID 09/07/19 09/28/19 History magnesium oxide 250 mg PO DAILY 09/07/19 09/28/19 History metronidazole 1 applic TOPICAL DAILY 09/28/19 09/28/19 History Patient History Medical History (Updated 09/29/19 @ 13:33 by Max Sales DO) Anemia Cardiac murmur "told years ago" Carotid stenosis, bilateral Cataract Chronic atrial fibrillation Chronic back pain Diverticular disease Diverticulosis Exertional dyspnea with stairs FH: total abdominal hysterectomy and bilateral salpingo-oophorectomy GERD (gastroesophageal reflux disease) GI bleed "blood in stool" History of CVA (cerebrovascular accident) L MCA CVA History of ischemic bowel disease (Chronic) HLD (hyperlipidemia) HTN (hypertension) Inguinal hernia Osteoarthritis Osteoporosis (Inactive) Surgical History H/O exploratory laparotomy (Inactive) "H/O Volvulus, adhesions and ischemic bowel/appendix" H/O laminectomy (Inactive) H/O shoulder surgery (Inactive) H/O shoulder surgery right History of adenoidectomy History of appendectomy History of cardiac cath [place], "years ago" History of colonoscopy History of discectomy History of surgery small bowel malrotation History of tonsillectomy Hx of cardiac cath (Inactive) Hx of tonsillectomy (Inactive) S/P ELEN-BSO (Inactive) Status post Mohs surgery Family History Mother Colorectal cancer Family hx of colon cancer Father Diabetes Brother Diabetes Social History Preferred Language: [place]an Communication Ability: Impaired Ecological Modeler Required: No Beliefs That Will Affect Care: None marital status: / Current Living Situation: Alone Other Information That Helps Us Care for You: No Feels Safe at Home: Yes Smoking Status: Unknown if ever smoked Hx Alcohol Use: No Hx Substance Use: No Physical Exam Physical Exam: EXAM: Constitutional: appearance normally developed, no ditress Face: normocephalic and atraumatic Eyes: normal lids, normal conjunctiva Neck: supple Respiratory: normal effort Cardiovascular: irregular pulses Abdomen: non distended Skin: no rashes, lesions, or ulcers noted Psychiatric: normal mood and normal affect NEUROLOGIC EXAMINATION: Appearance: no acute distress Orientation: awake, alert Mental Status: alert Attention: normal Knowledge: BARB due to apjasia Language: aphasic, speech is non fluent and soft, unable to repeat Speech: no dysarthria Cranial Nerves: CN 2 - no visual defect on confrontation and pupils round, equal, reactive to light CN 3, 4, 6 - extra-ocular movements intact CN 5 - facial sensation intact CN 7 - no facial asymmetry CN 8 - intact hearing CN 9, 10 - palate symmetric CN 11 - good shoulder shrug CN 12 - tongue midline Gait: deferredCoordination: no tremor or dyskinesia, not folliwng simple commands for finger to nose due to aphasia Sensory: intact and symmetric to light touch Muscle Tone: normal Muscle exam: Moving all 4 extremities well, difficult for formal muscle strength testing due to aphasia Reflexes: right toe upgoing Results & Data Vital Signs (Past 12 Hours) Vital Signs Temp Pulse Pulse Resp BP BP Pulse Ox 09/29/19 10:20 80 199/101 H 09/29/19 09:20 87 187/130 H 09/29/19 08:20 78 136/98 09/29/19 08:07 36.4 C L 77 142/107 H 09/29/19 08:00 74 09/29/19 07:20 81 194/126 H 09/29/19 04:00 36.8 C 78 16 182/105 H 98 09/29/19 02:08 37.0 C 72 16 214/104 H 95 09/29/19 01:32 92 H 18 172/105 H 95 Diagnostic Findings MRI brain w/o: IMPRESSION: 1. Small foci of restricted diffusion seen within the periventricular white matter of the left temporal and parietal lobes consistent with acute left MCA territory infarct. 2. Atrophy and microvascular ischemic changes are again noted. 3. No change in the maxillary sinus disease. CTA head and neck: . There is approximately 50% short segment stenosis of the proximal right internal carotid artery. 2. The left carotid artery in the vertebral arteries are patent bilaterally. 3. There is at least moderate stenosis the origin of the left subclavian artery.
--- NOTE | 2019-09-29 13:27 | Ultrasound Report ---
US venous doppler LE RT CLINICAL HISTORY: rule out DVT PAIN. EDEMA. COMPARISON STUDY: No previous studies for comparison. FINDINGS: Real-time and color flow Doppler imaging were performed. Flow was seen within the femoral, popliteal and calf veins with no intraluminal thrombus demonstrated. The saphenous vein is patent. IMPRESSION: No evidence of deep venous thrombosis. ACT 112: Negative or not required by law. The above report was generated using voice recognition software. It may contain grammatical, syntax or spelling errors. Electronically signed by: Santi Aguilar M.D. 09/29/2019 1:26 PM
[2019-09-29 14:29] LABS: Calcium 8.4 mg/dl (8.5-10.1); Creatinine Clr Calc Pharmacy 39.2 ml/min; Est GFR (African American) 74.5; Est GFR (Non-African American) 64.3; Potassium 3.5 mmol/L (3.5-5.1)
[2019-09-29 14:32] LABS: Partial Thromboplastin Ratio 3.2
[2019-09-29 14:34] LABS: Partial Thromboplastin Time 88.3 Seconds (21.0-31.0)
[2019-09-29] MEDS ORDERED: WARFARIN SOD 2 MG TAB PO SCH (16:00)
[2019-09-29] MEDS: WARFARIN SOD 4 MG TAB PO SCH (16:17)
--- NOTE | 2019-09-29 16:20 | Electrocardiogram Report ---
Test Reason : Blood Pressure : / mmHG Vent. Rate : 096 BPM Atrial Rate : 090 BPM P-R Int : 000 ms QRS Dur : 092 ms QT Int : 348 ms P-R-T Axes : 000 015 -02 degrees QTc Int : 439 ms Atrial fibrillation Anterior infarct , age undetermined Abnormal ECG When compared with ECG of 07-JUL-2019 12:45, No significant change was found Confirmed by Jossue Weeks ([id number]) on 09/29/2019 4:20:21 PM Referred By: REFERRED SELF Confirmed By:Jossue Weeks
[2019-09-29] MEDS: FOLIC ACID 1 MG TAB PO SCH (19:57)
[2019-09-29] MEDS: ATORVASTATIN 40 MG TAB PO SCH (19:58)
[2019-09-29] MEDS: CALCIUM 600MG + VIT D 400 IU TAB PO SCH (20:00)
[2019-09-29] MEDS: PANTOprazole 40 MG TAB PO SCH (20:00)
[2019-09-29 21:32] LABS: Partial Thromboplastin Ratio 2.1
[2019-09-29 21:35] LABS: Partial Thromboplastin Time 58.7 Seconds (21.0-31.0)
[2019-09-30 04:31] LABS: Basophils # (auto) 0.04 K/uL (0-0.2); Basophils % (auto) 0.6 %; Eosinophils # (auto) 0.16 K/uL (0-0.5); Eosinophils % (auto) 2.3 %; Hematocrit (blood only) 37.2 % (37-47); Hemoglobin 12.2 g/dL (12.0-16.0); Immature Granulocytes # (auto) 0.01 K/uL (0.00-0.02); Immature Granulocytes % (auto) 0.1 %; Lymphocytes # (auto) 2.02 K/uL (1.2-3.4); Lymphocytes % (auto) 28.5 %; Mean Corpuscular Hemoglobin 33.2 pg (25-34); Mean Corpuscular Hgb Conc 32.8 g/dL (32-36); Mean Corpuscular Volume 101.4 fL (80-100); Mean Platelet Volume 10.3 fL (7.4-10.4); Monocytes # (auto) 1.07 K/uL (0.11-0.59); Monocytes % (auto) 15.1 %; Neutrophils % (auto) 53.4 %; Platelet Count 305 K/uL (130-400); RDW Coefficient of Variation 13.6 % (11.5-14.5); RDW Standard Deviation 50.9 fL (36.4-46.3); Red Blood Count 3.67 M/uL (4.2-5.4)
[2019-09-30 04:53] LABS: Partial Thromboplastin Time 55.2 Seconds (21.0-31.0)
[2019-09-30 05:03] LABS: BUN Creatinine Ratio 11.7 (10-20); Calcium 8.3 mg/dl (8.5-10.1); Creatinine Clr Calc Pharmacy 41.7 ml/min; Est GFR (African American) 80.3; Est GFR (Non-African American) 69.3; Potassium 3.5 mmol/L (3.5-5.1)
[2019-09-30] MEDS: cloNIDine HCL 0.1 MG TAB PO SCH ×2 (08:07→21:15)
[2019-09-30] MEDS: FERROUS SULFATE 325 MG TAB PO SCH ×2 (08:07→21:14)
[2019-09-30] MEDS: CLOPIDOGREL BISULFATE 75 MG TAB PO SCH (08:07)
[2019-09-30] MEDS: AMLODIPINE BESYLATE 5 MG TAB PO SCH (08:07)
[2019-09-30] MEDS: ENALAPRIL MALEATE 10 MG TAB PO SCH ×2 (08:07→21:14)
[2019-09-30] MEDS: MAGNESIUM OXIDE 400 MG TAB PO SCH (08:07)
[2019-09-30] MEDS: METOPROLOL TARTRATE 100 MG TAB PO SCH ×2 (08:07→21:15)
[2019-09-30 08:45] LABS: Basophils # (auto) 0.03 K/uL (0-0.2); Basophils % (auto) 0.4 %; Eosinophils # (auto) 0.15 K/uL (0-0.5); Eosinophils % (auto) 1.9 %; Hemoglobin 13.1 g/dL (12.0-16.0); Immature Granulocytes # (auto) 0.01 K/uL (0.00-0.02); Immature Granulocytes % (auto) 0.1 %; Lymphocytes # (auto) 1.59 K/uL (1.2-3.4); Lymphocytes % (auto) 20.2 %; Mean Corpuscular Hemoglobin 33.7 pg (25-34); Mean Corpuscular Hgb Conc 32.8 g/dL (32-36); Mean Corpuscular Volume 102.8 fL (80-100); Mean Platelet Volume 10.8 fL (7.4-10.4); Monocytes # (auto) 0.86 K/uL (0.11-0.59); Monocytes % (auto) 10.9 %; Neutrophils # (auto) 5.23 K/uL (1.4-6.5); Neutrophils % (auto) 66.5 %; Platelet Count 330 K/uL (130-400); RDW Coefficient of Variation 13.8 % (11.5-14.5); Red Blood Count 3.89 M/uL (4.2-5.4); White Blood Count 7.87 K/uL (4.8-10.8)
[2019-09-30 08:54] LABS: INR 1.2 (0.9-1.1); Prothrombin Time 12.9 Seconds (9.0-12.0)
[2019-09-30 09:04] LABS: BUN Creatinine Ratio 12.7 (10-20); Calcium 8.6 mg/dl (8.5-10.1); Creatinine Clr Calc Pharmacy 37.4 ml/min; Est GFR (African American) 70.4; Est GFR (Non-African American) 60.7; Potassium 3.4 mmol/L (3.5-5.1)
[2019-09-30 09:07] LABS: Albumin Globulin Ratio 0.7 (0.9-2); Bilirubin,Total 0.7 mg/dl (0.2-1); Globulin 4.3 gm/dl (2.5-4.0); Total Protein 7.3 gm/dl (6.4-8.2)
[2019-09-30] MEDS: HEPARIN SODIUM/DEXTROSE 25,000 UNITS/500 ML BAG IV SCH (09:59)
--- NOTE | 2019-09-30 10:18 | Hospitalist Progress Note ---
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 when daughter called her speech seemed to be dysarthric and she called EMS and she also called neighbors. When neighbors and EMS came in, she was dysarthric and sometimes aphasic, but was able to move her extremities. As per neighbor, they saw her around 3:00 p.m. and she was fine at that time, so last known well was about 3:00 p.m. By the time the patient came in to the ER, she was about 7 hours from 3:00 p.m. and stroke alert was not called. -In the ED, the patient was started on IV heparin because of subtherapeutic INR for anticoagulation of atrial fibrillation -CT head: No acute intracranial abnormality. -CTA neck: here is approximately 50% short segment stenosis of the proximal right internal carotid artery, The left carotid artery in the vertebral arteries are patent bilaterally, There is at least moderate stenosis the origin of the left subclavian artery. -echocardiogram: 55 to 60% EF, no atrial septal defect recorded; no evidence of congestive heart failure -CTA head: No significant stenosis, occlusion, or aneurysm within the [place]. -Brain MRI: Small foci of restricted diffusion seen within the periventricular white matter of the left temporal and parietal lobes consistent with acute left MCA territory infarct. -Ultrasound of right lower extremity with no DVT -Vascular surgery consult was asked to evaluate subclavian artery stenosis and no acute vascular interventions -Neurology consult initial evaluation on 09/30/2019 -patient passed speech and swallow testing, was empirically started on IV labetalol, as of 09/29/2019 noon time she can take home medication of clonidine 0.2 mg BID, metoprolol 100 mg BID, lisinopril 20 mg BID, also added amlodipine 10 mg daily, adjust labetalol IV as needed -09/30/2019 current blood pressure and heart rate medications -continue PT/OT evaluations, and speech therapies chronic Atrial Fibrillation -continue IV heparin, will benefit from bridging to therapeutic INR -beta marva for rate control -monitor on telemetry -don't see evidence of congestive heart failure on echocardiogram reports or clear evidence of CHF in admission CXR -there is elevated BNP on admission as 2300, monitor fluid status closely -can continue statin , continue plavix and systemic anticoagulation (V heparin with coumadin, countinue couamdin as 4 mg daily from 09/29/19 and on 09/30/2019 and then as 2 mg daily starting from 10/01/2019. adjust as needed by hospitalist team, trend INR to target 2 to 3) Right calf pain -right lower extremity ultrasound results with no DVT, initial calf pain discomforts appears resolved Sleep apnea, on CPAP. Gastroesophageal reflux disease -can give PPI -as per pharmacist: possible drug-drug interaction with outpatient omeprazole and clopidogrel, which may decrease the efficacy of clopidogrel. Given another stroke risk/benefit of continuing omeprazole likely favors discontinuation. Please consider changing omeprazole to pantoprazole on discharge DVT prophylaxis: IV heparin with coumadin, countinue couamdin as 4 mg daily from 09/29/19 and on 09/30/2019 and then as 2 mg daily starting from 10/01/2019. adjust as needed by hospitalist team, trend INR to target 2 to 3 Admission and Anticipated Discharge Date Admission Date: September 29, 2019 Subjective Patient seen and examined at bedside after working with physical therapy. fundamentally seems capable with motor movements and patient able to follow directions. she doesn't speak much and when she talks it is briefly. physical therapist thought patient still with some difficulties with words. patient denies acute pain of the body. breathing comfortably. no shortness of breath. on room air. Review of Systems Review of Systems: All systems reviewed & are unremarkable except as noted in Subjective Physical Exam Constitutional: + thin Eyes: PERRL, conjunctivae normal, anicteric sclerae EOM intact bilaterally ENMT: external ear and nose normal, oropharynx normal Neck: normal visual inspection Respiratory: normal respiratory effort, lungs clear to auscultation Cardiovascular: Rate/Rhythm: regular rate Gastrointestinal (Abdomen): normal bowel sounds, soft, nontender, no hepatosplenomegaly Musculoskeletal: Head/Neck/Chest: normocephalic and head atraumatic Neurologic: moves all extremities Psychiatric: Orientation: alert and cooperative Results & Data Results & Data ([facility]) Vital Signs (Past 12 Hours) Vital Signs Temp Pulse Pulse Pulse Resp BP Pulse Ox 09/30/19 09:32 108/69 09/30/19 08:00 75 09/30/19 07:59 36.7 C 78 21 166/111 H 97 09/30/19 07:22 75 09/30/19 03:15 36.8 C 79 18 138/89 95 09/29/19 23:15 36.5 C 79 16 147/95 H 95
[2019-09-30] MEDS ORDERED: POTASSIUM CHLORIDE 20 MEQ TABCR PO STA (11:17)
[2019-09-30] MEDS ORDERED: POLYETHYLENE (MIRALAX) 17 GM PACK PO PRN (12:58)
[2019-09-30] MEDS: SENNA 8.6 MG TAB PO SCH (13:59)
[2019-09-30] MEDS: WARFARIN SOD 4 MG TAB PO SCH (16:54)
--- NOTE | 2019-09-30 17:03 | Neurology Progress Note ---
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 Etiology likely cardioembolic due to subtherapeutic INR. On examine patient continues to have a moderate to severe receptive and expressive aphasia. Given the subtheraputic INR with compliance with Coumadin dosing I would recommend switching to a NOAC for fpc secondary stroke prevention in the setting of NVAF. Would recommend stopping Heparin gtt and Coumadin. Start Eliquis 2.5 mg BID. Continue Neuro checks with STAT CT head non contrast for acute change in mental status. Blood pressure well controlled. Goal SBP<140 mm Hg and DBP<90 mm Hg. Vacular surgery consulted regarding peripheral vascular disease. No surgical intervention recommended. Agree with resuming home Plavix. agree with resuming high intensity statin. Speech therapy for rehabilitation needs. Admission and Anticipated Discharge Date Admission Date: September 29, 2019 Subjective Patient was seen and examined. Seated in chair watching TV this afternoon. Denies complaint. Physical Exam Physical Exam: EXAM: Constitutional: appearance normally developed, no ditress Face: normocephalic and atraumatic Eyes: normal lids, normal conjunctiva Neck: supple Respiratory: normal effort Cardiovascular: irregular pulses Abdomen: non distended Skin: no rashes, lesions, or ulcers noted Psychiatric: normal mood and normal affect NEUROLOGIC EXAMINATION: Appearance: no acute distress Orientation: awake, alert Mental Status: alert Attention: normal Knowledge: BARB due to apjasia Language: aphasic, speech is non fluent and soft, unable to repeat Speech: no dysarthria Cranial Nerves: CN 2 - no visual defect on confrontation and pupils round, equal, reactive to light CN 3, 4, 6 - extra-ocular movements intact CN 5 - facial sensation intact CN 7 - no facial asymmetry CN 8 - intact hearing CN 9, 10 - palate symmetric CN 11 - good shoulder shrug CN 12 - tongue midline Gait: deferredCoordination: no tremor or dyskinesia, not folliwng simple commands for finger to nose due to aphasia Sensory: intact and symmetric to light touch Muscle Tone: normal Muscle exam: Moving all 4 extremities well, difficult for formal muscle strength testing due to aphasia Reflexes: right toe upgoing Results & Data ([facility]) Vital Signs (Past 12 Hours) Vital Signs Temp Pulse Pulse Pulse Resp BP Pulse Ox 09/30/19 16:00 75 09/30/19 15:43 36.4 C L 81 20 111/65 98 09/30/19 11:52 36.5 C 75 23 110/77 99 09/30/19 11:36 09/30/19 09:32 108/69 09/30/19 08:00 75 09/30/19 07:59 36.7 C 78 21 166/111 H 97 09/30/19 07:22 75 Pulse Ox 09/30/19 16:00 09/30/19 15:43 09/30/19 11:52 09/30/19 11:36 100 09/30/19 09:32 09/30/19 08:00 09/30/19 07:59 09/30/19 07:22
[2019-09-30] MEDS ORDERED: ACETAMINOPHEN 325 MG TAB PO PRN (18:56)
[2019-09-30] MEDS: ATORVASTATIN 40 MG TAB PO SCH (21:16)
[2019-09-30] MEDS: FOLIC ACID 1 MG TAB PO SCH (21:16)
[2019-09-30] MEDS: PANTOprazole 40 MG TAB PO SCH (21:16)
[2019-09-30] MEDS: CALCIUM 600MG + VIT D 400 IU TAB PO SCH (21:17)
[2019-10-01 04:33] LABS: Basophils # (auto) 0.03 K/uL (0-0.2); Basophils % (auto) 0.5 %; Eosinophils # (auto) 0.17 K/uL (0-0.5); Eosinophils % (auto) 2.8 %; Hematocrit (blood only) 37.6 % (37-47); Hemoglobin 12.4 g/dL (12.0-16.0); Immature Granulocytes # (auto) 0.01 K/uL (0.00-0.02); Immature Granulocytes % (auto) 0.2 %; Lymphocytes # (auto) 2.24 K/uL (1.2-3.4); Lymphocytes % (auto) 36.5 %; Mean Corpuscular Hemoglobin 33.3 pg (25-34); Mean Corpuscular Volume 101.1 fL (80-100); Mean Platelet Volume 10.8 fL (7.4-10.4); Monocytes # (auto) 0.97 K/uL (0.11-0.59); Monocytes % (auto) 15.8 %; Neutrophils # (auto) 2.72 K/uL (1.4-6.5); Neutrophils % (auto) 44.2 %; Platelet Count 289 K/uL (130-400); RDW Coefficient of Variation 13.4 % (11.5-14.5); RDW Standard Deviation 50.3 fL (36.4-46.3); Red Blood Count 3.72 M/uL (4.2-5.4); White Blood Count 6.14 K/uL (4.8-10.8)
[2019-10-01 04:52] LABS: INR 1.3 (0.9-1.1); Partial Thromboplastin Ratio 2.2; Prothrombin Time 13.3 Seconds (9.0-12.0)
[2019-10-01 04:54] LABS: Partial Thromboplastin Time 62.7 Seconds (21.0-31.0)
[2019-10-01 05:00] LABS: BUN Creatinine Ratio 13.1 (10-20); Calcium 8.6 mg/dl (8.5-10.1); Creatinine Clr Calc Pharmacy 37.8 ml/min; Est GFR (African American) 71.4; Est GFR (Non-African American) 61.6; Potassium 3.4 mmol/L (3.5-5.1)
--- NOTE | 2019-10-01 08:22 | Hospitalist Progress Note ---
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 when daughter called her speech seemed to be dysarthric and she called EMS and she also called neighbors. When neighbors and EMS came in, she was dysarthric and sometimes aphasic, but was able to move her extremities. As per neighbor, they saw her around 3:00 p.m. and she was fine at that time, so last known well was about 3:00 p.m. By the time the patient came in to the ER, she was about 7 hours from 3:00 p.m. and stroke alert was not called. -In the ED, the patient was started on IV heparin because of subtherapeutic INR for anticoagulation of atrial fibrillation -CT head: No acute intracranial abnormality. -CTA neck: here is approximately 50% short segment stenosis of the proximal right internal carotid artery, The left carotid artery in the vertebral arteries are patent bilaterally, There is at least moderate stenosis the origin of the left subclavian artery. -echocardiogram: 55 to 60% EF, no atrial septal defect recorded; no evidence of congestive heart failure -CTA head: No significant stenosis, occlusion, or aneurysm within the [place]. -Brain MRI: Small foci of restricted diffusion seen within the periventricular white matter of the left temporal and parietal lobes consistent with acute left MCA territory infarct. -Ultrasound of right lower extremity with no DVT -Vascular surgery consult was asked to evaluate subclavian artery stenosis and no acute vascular interventions -Neurology consult initial evaluation on 09/30/2019 -patient passed speech and swallow testing, was empirically started on IV labetalol, as of 09/29/2019 noon time she can take home medication of clonidine 0.2 mg BID, metoprolol 100 mg BID, lisinopril 20 mg BID, also added amlodipine 10 mg daily, adjust labetalol IV as needed -09/30/2019 current blood pressure and heart rate medications -continue PT/OT evaluations, and speech therapies chronic Atrial Fibrillation -continue IV heparin, plan to switch to NOAC, discussed with neurology, plan for Xarelto -beta marva for rate control -monitor on telemetry -don't see evidence of congestive heart failure on echocardiogram reports or clear evidence of CHF in admission CXR -there is elevated BNP on admission as 2300, monitor fluid status closely -can continue statin , continue plavix and systemic anticoagulation (IV heparin now, plan to switch to Xarelto today 10/01/19, previously on Coumadin) Right calf pain -right lower extremity ultrasound results with no DVT, initial calf pain discomforts appears resolved Sleep apnea, on CPAP. Gastroesophageal reflux disease -can give PPI -as per pharmacist: possible drug-drug interaction with outpatient omeprazole and clopidogrel, which may decrease the efficacy of clopidogrel. Given another stroke risk/benefit of continuing omeprazole likely favors discontinuation. Please consider changing omeprazole to pantoprazole on discharge DVT prophylaxis: IV heparin now, plan to switch to Xarelto, previously on Coumadin Admission and Anticipated Discharge Date Admission Date: September 29, 2019 Subjective Patient sitting in chair and watching TV. She is in no acute distress. She is able to answer simple questions and even was able to say a full sentence. Denies any fevers, chills, chest pain, shortness of breath, abdominal pain, nausea or vomiting. Also denies any headache. Plan to stop IV heparin this afternoon and starting Xarelto. Review of Systems Review of Systems: All systems reviewed & are unremarkable except as noted in HPI & below Constitutional: no fever and no chills Respiratory: no cough and no dyspnea Cardiovascular: no chest pain and no palpitations Gastrointestinal: no abdominal pain, no nausea and no vomiting Physical Exam Physical Exam: Constitutional: Elderly thin female sitting up in the chair, in no acute distress Eyes: PERRL, conjunctivae normal, anicteric sclerae EOM intact bilaterally ENMT: external ear and nose normal, oropharynx normal Neck: normal visual inspection Respiratory: normal respiratory effort, lungs clear to auscultation Cardiovascular: Rate/Rhythm: regular rate Gastrointestinal (Abdomen): normal bowel sounds, soft, nontender to palpation, nondistended Musculoskeletal: Head/Neck/Chest: normocephalic and head atraumatic, moves extremity spontaneously Neurologic: moves all extremities Psychiatric: Orientation: alert and cooperative Results & Data Results & Data ([place]) Vital Signs (Past 12 Hours) Vital Signs Temp Pulse Resp BP Pulse Ox 10/01/19 07:44 36.7 C 73 15 149/86 H 99 10/01/19 03:22 36.8 C 69 15 124/88 98 09/30/19 23:26 37.0 C 79 20 110/71 99 Laboratory Results 10/01/19 10/01/19 10/01/19 Range/Units 04:04 04:04 04:04 WBC 6.14 (4.8-10.8) K/uL RBC 3.72 L (4.2-5.4) M/uL Hgb 12.4 (12.0-16.0) g/dL Hct 37.6 (37-47) % MCV 101.1 H (80-100) fL MCH 33.3 (25-34) pg MCHC 33.0 (32-36) g/dL RDW Std Deviation 50.3 H (36.4-46.3) fL RDW Coeff of Maddi 13.4 (11.5-14.5) % Plt Count 289 (130-400) K/uL MPV 10.8 H (7.4-10.4) fL Immature Gran % (Auto) 0.2 % Neut % (Auto) 44.2 % Lymph % (Auto) 36.5 % [place] % (Auto) 15.8 % Eos % (Auto) 2.8 % Baso % (Auto) 0.5 % Immature Gran # (Auto) 0.01 (0.00-0.02) K/uL Neut # (Auto) 2.72 (1.4-6.5) K/uL Lymph # (Auto) 2.24 (1.2-3.4) K/uL [place] # (Auto) 0.97 H (0.11-0.59) K/uL Eos # (Auto) 0.17 (0-0.5) K/uL Baso # (Auto) 0.03 (0-0.2) K/uL PT 13.3 H (9.0-12.0) Seconds INR 1.3 H (0.9-1.1) APTT 62.7 H* (21.0-31.0) Seconds PTT Ratio 2.2 Sodium 139 (136-145) mmol/L Potassium 3.4 L (3.5-5.1) mmol/L Chloride 108 H (98-107) mmol/L Carbon Dioxide 26 (21-32) mmol/L Anion Gap 5.0 (3-11) BUN 11 (7-18) mg/dl Creatinine 0.86 (0.6-1.2) mg/dl Est Cr Clr Drug Dosing 37.8 ml/min Est GFR ( Amer) 71.4 Est GFR (Non-Af Amer) 61.6 BUN/Creatinine Ratio 13.1 (10-20) Glucose 108 H (70-99) mg/dl Calcium 8.6 (8.5-10.1) mg/dl Total Bilirubin (0.2-1) mg/dl AST (15-37) U/L ALT (12-78) U/L Alkaline Phosphatase (45-117) U/L Total Protein (6.4-8.2) gm/dl Albumin (3.4-5.0) gm/dl Globulin (2.5-4.0) gm/dl Albumin/Globulin Ratio (0.9-2) 09/30/19 09/30/19 09/30/19 Range/Units 08:28 08:28 08:28 WBC 7.87 (4.8-10.8) K/uL RBC 3.89 L (4.2-5.4) M/uL Hgb 13.1 (12.0-16.0) g/dL Hct 40.0 (37-47) % MCV 102.8 H (80-100) fL MCH 33.7 (25-34) pg MCHC 32.8 (32-36) g/dL RDW Std Deviation 52.0 H (36.4-46.3) fL RDW Coeff of Maddi 13.8 (11.5-14.5) % Plt Count 330 (130-400) K/uL MPV 10.8 H (7.4-10.4) fL Immature Gran % (Auto) 0.1 % Neut % (Auto) 66.5 % Lymph % (Auto) 20.2 % [place] % (Auto) 10.9 % Eos % (Auto) 1.9 % Baso % (Auto) 0.4 % Immature Gran # (Auto) 0.01 (0.00-0.02) K/uL Neut # (Auto) 5.23 (1.4-6.5) K/uL Lymph # (Auto) 1.59 (1.2-3.4) K/uL [place] # (Auto) 0.86 H (0.11-0.59) K/uL Eos # (Auto) 0.15 (0-0.5) K/uL Baso # (Auto) 0.03 (0-0.2) K/uL PT 12.9 H (9.0-12.0) Seconds INR 1.2 H (0.9-1.1) APTT (21.0-31.0) Seconds PTT Ratio Sodium 135 L (136-145) mmol/L Potassium 3.4 L (3.5-5.1) mmol/L Chloride 104 (98-107) mmol/L Carbon Dioxide 24 (21-32) mmol/L Anion Gap 7.0 (3-11) BUN 11 (7-18) mg/dl Creatinine 0.87 (0.6-1.2) mg/dl Est Cr Clr Drug Dosing 37.4 ml/min Est GFR ( Amer) 70.4 Est GFR (Non-Af Amer) 60.7 BUN/Creatinine Ratio 12.7 (10-20) Glucose 147 H (70-99) mg/dl Calcium 8.6 (8.5-10.1) mg/dl Total Bilirubin 0.7 (0.2-1) mg/dl AST 22 (15-37) U/L ALT 20 (12-78) U/L Alkaline Phosphatase 85 (45-117) U/L Total Protein 7.3 (6.4-8.2) gm/dl Albumin 3.0 L (3.4-5.0) gm/dl Globulin 4.3 H (2.5-4.0) gm/dl Albumin/Globulin Ratio 0.7 L (0.9-2) Medications Administered Current Inpatient Medications Acetaminophen (Tylenol) 325 mg PO Q6H PRN PRN Reason: Pain or Fever Stop: 10/30/19 18:55 Amlodipine Besylate (Norvasc) 10 mg PO [facility] Stop: 10/29/19 11:29 Last Admin: 09/30/19 08:07 Dose: 10 mg Documented by: Atorvastatin Calcium (Lipitor) 80 mg PO [facility] Stop: 10/29/19 20:59 Last Admin: 09/30/19 21:16 Dose: 80 mg Documented by: Clonidine HCl (Catapres) 0.2 mg PO BID [facility] Stop: 10/29/19 08:59 Last Admin: 09/30/19 21:15 Dose: 0.2 mg Documented by: Clopidogrel Bisulfate (Plavix) 75 mg PO QAM [facility] Stop: 10/29/19 08:59 Last Admin: 09/30/19 08:07 Dose: 75 mg Documented by: Enalapril Maleate (Vasotec) 20 mg PO BID [facility] Stop: 10/29/19 11:29 Last Admin: 09/30/19 21:14 Dose: 20 mg Documented by: Ferrous Sulfate (Feosol) 325 mg PO BID [facility] Stop: 10/29/19 08:59 Last Admin: 09/30/19 21:14 Dose: 325 mg Documented by: Folic Acid (Folvite) 1 mg PO QPM [facility] Stop: 10/29/19 20:59 Last Admin: 09/30/19 21:16 Dose: 1 mg Documented by: Heparin Sodium/Dextrose (Heparin Sodium/Dextrose) 25,000 units in 500 mls @ 13 mls/hr IV .Q24H [facility]; Protocol Stop: 10/29/19 08:29 Last Titration: 10/01/19 07:07 Dose: 650 units/hr, 13 mls/hr Documented by: Labetalol HCl (Normodyne) 10 mg IV Q6H PRN PRN Reason: Hypertension Stop: 10/29/19 11:59 Magnesium Oxide (Mag-Ox) 400 mg PO DAILY [facility] Stop: 10/29/19 08:59 Last Admin: 09/30/19 08:07 Dose: 400 mg Documented by: Metoprolol Tartrate (Lopressor) 100 mg PO BID [facility] Stop: 10/29/19 08:59 Last Admin: 09/30/19 21:15 Dose: 100 mg Documented by: Miscellaneous (Pending Order) 1 ea N/A DAILY@1600 [facility] Stop: 10/01/19 23:00 Miscellaneous Information (Pharmacist Discharge Med Rec Consult) 1 ea N/A UD PRN PRN Reason: Consult Stop: 10/29/19 01:57 Multivitamins/Minerals (Caltrate Plus) 1 tab PO QPM [facility] Stop: 10/29/19 20:59 Last Admin: 09/30/19 21:17 Dose: 1 tab Documented by: Nitroglycerin (Nitrostat) 0.4 mg SL UD PRN PRN Reason: Chest Pain Stop: 10/29/19 01:57 Ondansetron HCl (Zofran) 4 mg IV Q6H PRN PRN Reason: Nausea Stop: 10/29/19 01:57 Pantoprazole Sodium (Protonix) 40 mg PO QPM [facility] Stop: 10/29/19 20:59 Last Admin: 09/30/19 21:16 Dose: 40 mg Documented by: Polyethylene Glycol (Miralax Powder Packet) 17 gm PO DAILY PRN PRN Reason: Constipation Stop: 10/30/19 12:57 Sennosides (Senokot) 8.6 mg PO QAM [facility] Stop: 10/30/19 12:59 Last Admin: 09/30/19 13:59 Dose: 8.6 mg Documented by:
[2019-10-01] MEDS: CLOPIDOGREL BISULFATE 75 MG TAB PO SCH (09:57)
[2019-10-01] MEDS: FERROUS SULFATE 325 MG TAB PO SCH ×2 (09:57→20:43)
[2019-10-01] MEDS: MAGNESIUM OXIDE 400 MG TAB PO SCH (09:57)
[2019-10-01] MEDS: cloNIDine HCL 0.1 MG TAB PO SCH ×2 (09:57→20:43)
[2019-10-01] MEDS: SENNA 8.6 MG TAB PO SCH (09:57)
[2019-10-01] MEDS: ENALAPRIL MALEATE 10 MG TAB PO SCH ×2 (09:58→20:43)
[2019-10-01] MEDS: METOPROLOL TARTRATE 100 MG TAB PO SCH ×2 (09:58→20:43)
[2019-10-01] MEDS: AMLODIPINE BESYLATE 5 MG TAB PO SCH (09:58)
[2019-10-01] MEDS: HEPARIN SODIUM/DEXTROSE 25,000 UNITS/500 ML BAG IV SCH (09:59)
[2019-10-01] MEDS ORDERED: POTASSIUM CHLORIDE 20 MEQ/15 ML UDC PO ONE (13:00)
[2019-10-01] MEDS ORDERED: WARFARIN SOD 2 MG TAB PO SCH (16:00)
[2019-10-01] MEDS ORDERED: RIVAROXABAN 15 MG TAB PO SCH (16:30)
[2019-10-01] MEDS: FOLIC ACID 1 MG TAB PO SCH (20:43)
[2019-10-01] MEDS: PANTOprazole 40 MG TAB PO SCH (20:43)
[2019-10-01] MEDS: CALCIUM 600MG + VIT D 400 IU TAB PO SCH (20:43)
[2019-10-01] MEDS: ATORVASTATIN 40 MG TAB PO SCH (20:44)
[2019-10-02 07:14] LABS: Hematocrit (blood only) 36.1 % (37-47); Hemoglobin 11.9 g/dL (12.0-16.0); Mean Corpuscular Hemoglobin 33.3 pg (25-34); Mean Corpuscular Volume 101.1 fL (80-100); Mean Platelet Volume 10.6 fL (7.4-10.4); Platelet Count 282 K/uL (130-400); RDW Coefficient of Variation 13.2 % (11.5-14.5); RDW Standard Deviation 49.2 fL (36.4-46.3); Red Blood Count 3.57 M/uL (4.2-5.4); White Blood Count 5.46 K/uL (4.8-10.8)
[2019-10-02 07:29] LABS: Partial Thromboplastin Ratio 1.2; Partial Thromboplastin Time 34.6 Seconds (21.0-31.0)
--- NOTE | 2019-10-02 07:31 | Hospitalist Progress Note ---
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 when daughter called her speech seemed to be dysarthric and she called EMS and she also called neighbors. When neighbors and EMS came in, she was dysarthric and sometimes aphasic, but was able to move her extremities. As per neighbor, they saw her around 3:00 p.m. and she was fine at that time, so last known well was about 3:00 p.m. By the time the patient came in to the ER, she was about 7 hours from 3:00 p.m. and stroke alert was not called. -In the ED, the patient was started on IV heparin because of subtherapeutic INR for anticoagulation of atrial fibrillation -CT head: No acute intracranial abnormality. -CTA neck: here is approximately 50% short segment stenosis of the proximal right internal carotid artery, The left carotid artery in the vertebral arteries are patent bilaterally, There is at least moderate stenosis the origin of the left subclavian artery. -echocardiogram: 55 to 60% EF, no atrial septal defect recorded; no evidence of congestive heart failure -CTA head: No significant stenosis, occlusion, or aneurysm within the [place]. -Brain MRI: Small foci of restricted diffusion seen within the periventricular white matter of the left temporal and parietal lobes consistent with acute left MCA territory infarct. -Ultrasound of right lower extremity with no DVT -Vascular surgery consult was asked to evaluate subclavian artery stenosis - no acute vascular interventions -Neurology consult initial evaluation on 09/30/2019 -patient passed speech and swallow testing, was empirically started on IV l abetalol, as of 09/29/2019 noon time she can take home medication of clonidine 0.2 mg BID, metoprolol 100 mg BID, lisinopril 20 mg BID, also added amlodipine 5 mg daily, adjust labetalol IV as needed -09/30/2019 current blood pressure and heart rate medications -continue PT/OT evaluations, and speech therapies -Initially added amlodipine 10 mg, now down to 5 mg as her blood pressure is in lower range, goal systolic blood pressure less than 140, diastolic blood pressure less than 90, current blood pressure 110/67 -Per neurology - speech therapy, rehabilitation needs -Started Xarelto yesterday (10/01/2019) after discussing with neurology and pharmacy -Continue Plavix -[facility] therapy chronic Atrial Fibrillation -switched to NOAC, discussed with neurology, plan for Xarelto -Started Xarelto yesterday, September 30 -beta marva for rate control -monitor on telemetry -don't see evidence of congestive heart failure on echocardiogram reports or clear evidence of CHF in admission CXR -there is elevated BNP on admission as 2300, monitor fluid status -can continue statin , continue Plavix and systemic anticoagulation (IV heparin initially due to subtherapeutic INR, switched to Xarelto on 10/01/19, previously on Coumadin) Right calf pain -right lower extremity ultrasound results with no DVT, initial calf pain discomforts appears resolved Sleep apnea, on CPAP. Gastroesophageal reflux disease -can give PPI -as per pharmacist: possible drug-drug interaction with outpatient omeprazole and clopidogrel, which may decrease the efficacy of clopidogrel. Given another stroke risk/benefit of continuing omeprazole likely favors discontinuation. Please consider changing omeprazole to pantoprazole on discharge DVT prophylaxis: Xarelto Admission and Anticipated Discharge Date Admission Date: September 29, 2019 Subjective No acute events overnight. Patient was started on Xarelto yesterday. Currently she is sitting in chair, in no acute distress. She is able to answer simple questions and even able to say some full sentences. I feel that her speech is somewhat improved from yesterday as she was mostly answering yes and no yesterday. Today she is asking why she cannot go home. Talked about need for rehab, as she lives alone. Denies any fevers, chills, chest pain, shortness of breath, abdominal pain, nausea or vomiting. Also denies any headache. Review of Systems Review of Systems: All systems reviewed & are unremarkable except as noted in HPI & below Constitutional: no fever and no chills Respiratory: no cough and no dyspnea Cardiovascular: no chest pain and no palpitations Gastrointestinal: no abdominal pain, no nausea and no vomiting Physical Exam Physical Exam: Constitutional: Elderly thin female sitting up in the chair, in no acute distress Eyes: PERRL, conjunctivae normal, anicteric sclerae EOM intact bilaterally ENMT: external ear and nose normal, oropharynx normal Neck: normal visual inspection Respiratory: normal respiratory effort, lungs clear to auscultation Cardiovascular: Rate/Rhythm: regular rate Gastrointestinal (Abdomen): normal bowel sounds, soft, nontender to palpation, nondistended Musculoskeletal: Head/Neck/Chest: normocephalic and head atraumatic, moves extremities spontaneously Neurologic: Alert and cooperative, moves all extremities, able to answer simple questions and follows simple commands Skin: Warm, dry, well perfused Results & Data Results & Data ([facility]) Vital Signs (Past 12 Hours) Vital Signs Temp Pulse Pulse Resp BP Pulse Ox 10/02/19 03:36 36.9 C 59 L 18 118/64 94 10/02/19 01:25 71 10/01/19 23:32 36.6 C 79 16 122/85 98 10/01/19 19:35 36.3 C L 75 16 119/77 98 Laboratory Results 10/02/19 10/02/19 10/02/19 Range/Units 06:55 06:55 06:55 WBC 5.46 (4.8-10.8) K/uL RBC 3.57 L (4.2-5.4) M/uL Hgb 11.9 L (12.0-16.0) g/dL Hct 36.1 L (37-47) % MCV 101.1 H (80-100) fL MCH 33.3 (25-34) pg MCHC 33.0 (32-36) g/dL RDW Std Deviation 49.2 H (36.4-46.3) fL RDW Coeff of Maddi 13.2 (11.5-14.5) % Plt Count 282 (130-400) K/uL MPV 10.6 H (7.4-10.4) fL APTT 34.6 H (21.0-31.0) Seconds PTT Ratio 1.2 Sodium 139 (136-145) mmol/L Potassium 4.1 D (3.5-5.1) mmol/L Chloride 111 H (98-107) mmol/L Carbon Dioxide 23 (21-32) mmol/L Anion Gap 5.0 (3-11) BUN 9 (7-18) mg/dl Creatinine 0.78 (0.6-1.2) mg/dl Est Cr Clr Drug Dosing 41.7 ml/min Est GFR ( Amer) 80.3 Est GFR (Non-Af Amer) 69.3 BUN/Creatinine Ratio 11.5 (10-20) Glucose 108 H (70-99) mg/dl Calcium 8.2 L (8.5-10.1) mg/dl Phosphorus 2.6 (2.5-4.9) mg/dl Magnesium 1.9 (1.8-2.4) mg/dl Medications Administered Current Inpatient Medications Acetaminophen (Tylenol) 325 mg PO Q6H PRN PRN Reason: Pain or Fever Stop: 10/30/19 18:55 A[facility]od[facility]ine [facility] Stop: 11/01/19 08:59 Atorvastatin Calcium (Lipitor) 80 mg PO HS [facility] Stop: 10/29/19 20:59 Last Admin: 10/01/19 20:44 Dose: 80 mg Documented by: Clonidine HCl (Catapres) 0.2 mg PO BID [facility] Stop: 10/29/19 08:59 Last Admin: 10/01/19 20:43 Dose: 0.2 mg Documented by: Clopidogrel Bisulfate (Plavix) 75 mg PO QAM [facility] Stop: 10/29/19 08:59 Last Admin: 10/01/19 09:57 Dose: 75 mg Documented by: Enalapril Maleate (Vasotec) 20 mg PO BID [facility] Stop: 10/29/19 11:29 Last Admin: 10/01/19 20:43 Dose: 20 mg Documented by: Ferrous Sulfate (Feosol) 325 mg PO BID [facility] Stop: 10/29/19 08:59 Last Admin: 10/01/19 20:43 Dose: 325 mg Documented by: Folic Acid (Folvite) 1 mg PO QPM [facility] Stop: 10/29/19 20:59 Last Admin: 10/01/19 20:43 Dose: 1 mg Documented by: Labetalol HCl (Normodyne) 10 mg IV Q6H PRN PRN Reason: Hypertension Stop: 10/29/19 11:59 Magnesium Oxide (Mag-Ox) 400 mg PO DAILY [facility] Stop: 10/29/19 08:59 Last Admin: 10/01/19 09:57 Dose: 400 mg Documented by: Metoprolol Tartrate (Lopressor) 100 mg PO BID [facility] Stop: 10/29/19 08:59 Last Admin: 10/01/19 20:43 Dose: 100 mg Documented by: Miscellaneous Information (Pharmacist Discharge Med Rec Consult) 1 ea N/A UD PRN PRN Reason: Consult Stop: 10/29/19 01:57 Multivitamins/Minerals (Caltrate Plus) 1 tab PO QPM [facility] Stop: 10/29/19 20:59 Last Admin: 10/01/19 20:43 Dose: 1 tab Documented by: Nitroglycerin (Nitrostat) 0.4 mg SL UD PRN PRN Reason: Chest Pain Stop: 10/29/19 01:57 Ondansetron HCl (Zofran) 4 mg IV Q6H PRN PRN Reason: Nausea Stop: 10/29/19 01:57 Pantoprazole Sodium (Protonix) 40 mg PO QPM [facility] Stop: 10/29/19 20:59 Last Admin: 10/01/19 20:43 Dose: 40 mg Documented by: Polyethylene Glycol (Miralax Powder Packet) 17 gm PO DAILY PRN PRN Reason: Constipation Stop: 10/30/19 12:57 Rivaroxaban (Xarelto) 15 mg PO QDD [facility] Stop: 10/31/19 16:29 Last Admin: 10/01/19 16:31 Dose: 15 mg Documented by: Sennosides (Senokot) 8.6 mg PO QAM [facility] Stop: 10/30/19 12:59 Last Admin: 10/01/19 09:57 Dose: 8.6 mg Documented by:
[2019-10-02] MEDS: ENALAPRIL MALEATE 10 MG TAB PO SCH (07:43)
[2019-10-02] MEDS: METOPROLOL TARTRATE 100 MG TAB PO SCH (07:43)
[2019-10-02] MEDS: CLOPIDOGREL BISULFATE 75 MG TAB PO SCH (07:43)
[2019-10-02] MEDS: FERROUS SULFATE 325 MG TAB PO SCH (07:43)
[2019-10-02] MEDS: MAGNESIUM OXIDE 400 MG TAB PO SCH (07:43)
[2019-10-02] MEDS: SENNA 8.6 MG TAB PO SCH (07:43)
[2019-10-02] MEDS: cloNIDine HCL 0.1 MG TAB PO SCH (07:44)
[2019-10-02 07:51] LABS: BUN Creatinine Ratio 11.5 (10-20); Calcium 8.2 mg/dl (8.5-10.1); Creatinine Clr Calc Pharmacy 41.7 ml/min; Est GFR (African American) 80.3; Est GFR (Non-African American) 69.3; Magnesium 1.9 mg/dl (1.8-2.4); Phosphorus 2.6 mg/dl (2.5-4.9); Potassium 4.1 mmol/L (3.5-5.1)
[2019-10-02] MEDS ORDERED: AMLODIPINE BESYLATE 5 MG TAB PO SCH (09:00)
[2019-10-02] MEDS ORDERED: STROKE PATIENT DISCHARGE STA (13:09)
--- NOTE | 2019-10-02 13:17 | Discharge Summary ---
Date of Service October 02, 2019 Admission HPI Per Admitting Provider This is an 84-year-old female with past medical history significant for hyperlipidemia, obstructive sleep apnea on CPAP, nonrheumatic aortic sclerosis, atrial fibrillation, hypertension, LVH, diverticulosis, GERD, lumbar disc disease, senile osteoporosis, Raynaud phenomena, history of humerus fracture, history of left MCA CVA, on Plavix, who was brought in because of stroke-like symptoms. The patient seems to live alone. She is quarantining and daughter lives 3 hours away and she calls her every day and around 8:00 to 9:00 p.m. when daughter called her speech seemed to be dysarthric and she called EMS and she also called neighbors. When neighbors and EMS came in, she was dysarthric and sometimes aphasic, but was able to move her extremities. As per neighbor, they saw her around 3:00 p.m. and she was fine at that time, so last known well was about 3:00 p.m. By the time the patient came in to the ER, she was about 7 hours from 3:00 p.m. and stroke alert was not called. CT of the head was done which is unremarkable, but CTA of the head and neck also done which shows some 90% stenosis of the origin of the subclavian artery and also right internal carotid artery, 60% stenosis . At the left carotid bifurcation is an ulcerative plaque. When the ER physician called stat radiologist and asked about the dissection, he was not sure and said probably there could be some dissection. The patient was supposed to be on Coumadin, INR is subtherapeutic at 1.3, so she was started on IV heparin. Then the ER physician also called the [facility] stroke neurologist deep well contractor and explained things and they agreed with IV heparin and sergio do a full stroke workup. The patient's blood pressure was running high, she received a dose of IV labetalol. Currently now she is able to speak. When I spoke with her, she is talking, but not answering appropriately. When asked one question, she is answering something else, but able to obey the simple commands and lift her upper extremities and move her lower extremities. ER physician was able to talk to her daughter and as per her the patient seemed to be very sharp and she was learning piano during this lock down and she was quarantining well. Tried to call her daughter, but could not reach her, it was going to voicemail. Admission Exam Per Admitting Provider GENERAL: The patient is alert and awake, not oriented. HEENT: No pallor, no icterus. Pupils equal, round, and reactive to light. NECK: No JVD, no neck masses seen. CARDIOVASCULAR: S1, S2 heard, regular rate and rhythm, no murmur, no gallop. RESPIRATORY SYSTEM: Normal AP diameter. No accessory muscle use. No wheezing, no crackles. ABDOMEN: Soft, bowel sounds present. No distention, no guarding. CENTRAL NERVOUS SYSTEM: Alert and awake. Speech is currently clear, but answering tangentially. Obeys simple commands. Able to lift her extremities. Able to do alternating movements of her palms. EXTREMITIES: No edema, no erythema. 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 Subtherapeutic INR Hypertensive urgency Discharge Exam Constitutional: Elderly thin female sitting up in the chair, in no acute distress Eyes: PERRL, conjunctivae normal, anicteric sclerae EOM intact bilaterally ENMT: external ear and nose normal, oropharynx normal Neck: normal visual inspection Respiratory: normal respiratory effort, lungs clear to auscultation Cardiovascular: Rate/Rhythm: regular rate Gastrointestinal (Abdomen): normal bowel sounds, soft, nontender to palpation, nondistended Musculoskeletal: Head/Neck/Chest: normocephalic and head atraumatic, moves extremities spontaneously Neurologic: Alert and cooperative, moves all extremities, able to answer simple questions and follows simple commands Skin: Warm, dry, well perfused Discharge Data Allergies Allergy/AdvReac Type Severity Reaction Status Date / Time pneumococcal vaccine Allergy Mild DIZZINESS Verified 09/28/19 23:24 AND FELT LOUSY Sulfa (Sulfonamide Allergy Unknown high Verified 09/28/19 23:24 Antibiotics) fever/ rash aspirin AdvReac Unknown epistaxis Verified 09/28/19 23:24 Consultations 09/29/19 00:16 ED Decision to Admit Stat 09/29/19 01:58 Consult Case Management - Discharge Planning Routine 09/29/19 06:58 Consult Vascular Surgery Routine 09/29/19 08:00 Consult Neurology Routine Ordered Studies 09/28/19 22:11 CT angio head w con Stat IMPRESSION: No significant stenosis, occlusion, or aneurysm within the [place]. CT angio neck with con Stat IMPRESSION: 1. There is approximately 50% short segment stenosis of the proximal right in ternal carotid artery. 2. The left carotid artery in the vertebral arteries are patent bilaterally. 3. There is at least moderate stenosis the origin of the left subclavian artery. 4. Additional findings as above. CT head/brain wo con Stat Impression: No significant change compared to the prior study. No acute intracranial abnormality. Sinus disease persists as described above. 09/29/19 01:58 MR brain wo/w con Urgent IMPRESSION: 1. Small foci of restricted diffusion seen within the periventricular white matter of the left temporal and parietal lobes consistent with acute left MCA territory infarct. 2. Atrophy and microvascular ischemic changes are again noted. 3. No change in the maxillary sinus disease. 09/29/19 08:53 US venous doppler LE RT Routine IMPRESSION: No evidence of deep venous thrombosis. Hospital Course (1) Stroke-like symptoms: secondary to Embolic stroke involving left middle cerebral artery Subclavian artery stenosis Hypertensive urgency -reported history of left CVA in the past and on plavix and coumadin at home -This is an 84-year-old female who presents with stroke-like symptoms mostly appears to be affecting speech -as per admission and notes, "She is quarantining and daughter lives 3 hours away and she calls her every day and around 8:00 to 9:00 p.m. when daughter called her speech seemed to be dysarthric and she called EMS and she also called neighbors. When neighbors and EMS came in, she was dysarthric and sometimes aphasic, but was able to move her extremities. As per neighbor, they saw her around 3:00 p.m. and she was fine at that time, so last known well was about 3:00 p.m. By the time the patient came in to the ER, she was about 7 hours from 3:00 p.m. and stroke alert was not called. -In the ED, the patient was started on IV heparin because of subtherapeutic INR for anticoagulation of atrial fibrillation -CT head: No acute intracranial abnormality. -CTA neck: here is approximately 50% short segment stenosis of the proximal right internal carotid artery, The left carotid artery in the vertebral arteries are patent bilaterally, There is at least moderate stenosis the origin of the left subclavian artery. -echocardiogram: 55 to 60% EF, no atrial septal defect recorded; no evidence of congestive heart failure -CTA head: No significant stenosis, occlusion, or aneurysm within the [place]. -Brain MRI: Small foci of restricted diffusion seen within the periventricular white matter of the left temporal and parietal lobes consistent with acute left MCA territory infarct. -Ultrasound of right lower extremity with no DVT -Vascular surgery consult was asked to evaluate subclavian artery stenosis - no acute vascular interventions -Neurology consult initial evaluation on 09/30/2019 -patient passed speech and swallow testing, was empirically started on IV labetalol, as of 09/29/2019 noon time she can take home medication of clonidine 0.2 mg BID, metoprolol 100 mg BID, lisinopril 20 mg BID, also added amlodipine 5 mg daily, adjust labetalol IV as needed -09/30/2019 current blood pressure and heart rate medications -continue PT/OT evaluations, and speech therapies -Initially added amlodipine 10 mg, now down to 5 mg as her blood pressure is in lower range, goal systolic blood pressure less than 140, diastolic blood pressure less than 90, current blood pressure 110/67 -Per neurology - speech therapy, rehabilitation needs -Started Xarelto yesterday (10/01/2019) after discussing with neurology and pharmacy -Continue Plavix -[facility] therapy chronic Atrial Fibrillation -switched to NOAC, discussed with neurology, plan for Xarelto -Started Xarelto yesterday, September 30 -beta marva for rate control -monitor on telemetry -don't see evidence of congestive heart failure on echocardiogram reports or clear evidence of CHF in admission CXR -there is elevated BNP on admission as 2300, monitor fluid status -can continue statin , continue Plavix and systemic anticoagulation (IV heparin initially due to subtherapeutic INR, switched to Xarelto on 10/01/19, previously on Coumadin) Right calf pain -right lower extremity ultrasound results with no DVT, initial calf pain discomforts appears resolved Sleep apnea, on CPAP. Gastroesophageal reflux disease -can give PPI -as per pharmacist: possible drug-drug interaction with outpatient omeprazole and clopidogrel, which may decrease the efficacy of clopidogrel. Given another stroke risk/benefit of continuing omeprazole likely favors discontinuation. 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 Instead, take Xarelto daily. Continue to take Plavix and atorvastatin (Lipitor) daily. Do not take omeprazole, instead take pantoprazole daily. Omeprazole may be interacting with your Plavix. Because your blood pressure was elevated when you came to hospital, you were started on a new medication, amlodipine, 5 mg daily. Your goal blood pressure is a systolic blood pressure less than 140, and diastolic blood pressure less than 90. Continue to monitor your blood pressure. Pending Studies at Discharge: No Stand-Alone Forms: My [facility] Skilled Items Patient informed of condition?: Yes DNR: No Discharge Level of Care: Acute rehab Communicable Disease: No Discharge Prognosis: Improving Lines: None Urinary Catheter: No Medications and DC Order Prescriptions: New amlodipine [Norvasc] 5 mg Tablet 5 mg PO QAM 10 Days Qty: 10 RF: 0 pantoprazole 40 mg Tablet,Delayed Release (Dr/Ec) 40 mg PO QPM 30 Days Qty: 30 RF: 0 Xarelto 15 mg Tablet 15 mg PO QDD 30 Days Qty: 30 RF: 0 Continued multivitamin Tablet 1 tab PO QPM RF: 0 atorvastatin [Lipitor] 80 mg tablet 80 mg PO HS RF: 0 metoprolol tartrate 100 mg tablet 100 mg PO BID RF: 0 lisinopril 20 mg tablet 20 mg PO BID RF: 0 clonidine HCl 0.2 mg tablet 0.2 mg PO BID RF: 0 ascorbic acid (vitamin C) [Vitamin C] 500 mg Tablet 500 mg PO QPM RF: 0 Prolia 60 mg/mL Syringe 60 mg SUBCUT .Q6MO RF: 0 Caltrate 600 plus D 600 mg (1,500 mg)-800 unit Tablet,Chewable 1 tab PO QPM RF: 0 clopidogrel [Plavix] 75 mg Tablet 75 mg PO QAM RF: 0 folic acid 1 mg tablet 1 mg PO QPM RF: 0 metronidazole 0.75 % gel 1 applic TOPICAL DAILY RF: 0 ferrous sulfate [FeroSul] 325 mg (65 mg iron) tablet 325 mg PO BID RF: 0 magnesium oxide 500 mg Tablet 250 mg PO DAILY RF: 0 Discontinued omeprazole 20 mg capsule,delayed release(DR/EC) 20 mg PO QPM RF: 0 warfarin 2 mg Tablet 2 mg PO DAILY RF: 0 Discharge Orders: Discharge Order (Routine); Ordered 10/02/19 Ordered By: Bony Sumner Admission Data Admit Date/Time: 09/29/19 00:52 Attending Provider: Bony Sumner Admit Provider: Otis Yanez Primary Care Provider: José Vergara Other Providers: [facility] ; Drew Lees ; Otis Yanez ; Zackary Martinez ; Corinne Mendoza ; Alejo Orantes ; Corinne Dunn ; Max Sales
== END 2019-10-02 13:55 | DRG 65 ==
LOC: ED 22:10 → 1E 09-29 00:52 → SUATTDRO 09-29 00:52 → 1E 09-29 01:32 → 2N 10-01 13:03